=== PATIENT | female | born 1975 | race Caucasian/White ===

== ENCOUNTER 2020-09-05 18:25 | Emergency (ER) | payer MEDICAID, SELFPAY ==
[2020-09-05 19:26] VITALS: BP 134/88; PULSE 84; RESP 16; TEMP 36.6; O2SAT 98; BMI 25.0
--- NOTE | 2020-09-05 19:45 | ED.GENADULT ---
HPI - General Adult General Chief complaint: General Medical Stated complaint: Withdrawal Time Seen by Provider: 09/05/20 19:40 Related Data Previous Rx's Medication Instructions Recorded buprenorphine-naloxone [Suboxone] 1 film BUCCAL DAILY #3 ea 09/05/20 Allergies Allergy/AdvReac Type Severity Reaction Status Date / Time No Known Allergies Allergy Verified 09/05/20 19:32 [No Known Allergies*] Review of Systems Review of Systems: Constitutional : No Weight loss, No Fever, No Chills, No Night Sweats, No Fatigue, No Malaise ENT/Mouth : No Hearing loss, No Ear Pain, No Nasal Congestion, No Sinus Pain, No Hoarseness, No sore throat, No Rhinorrhea, No Swallowing Difficulty Eyes: No Eye Pain, No Swelling, No Redness, No Foreign Body, No Discharge, No Vision Changes Cardiovascular : No Chest Pain, No SOB, No Dyspnea on Exertion, No Orthopnea, No Edema, No Palpitations Respiratory : No Cough, No Sputum, No Wheezing, No Smoke Exposure, No Dyspnea Gastrointestinal : No Nausea, No Vomiting, No Diarrhea, No Constipation, No abdominal Pain, No Hematochezia, No Melena Genitourinary : no irregular bleeding, No Dysuria, No Urinary Frequency, No Hematuria, No Urinary Incontinence, No Urgency, No Flank Pain, No Urinary Flow Changes, No Hesitancy Musculoskeletal : No joint pain, No Myalgias, No Joint Swelling Skin : No Skin Lesions, No rash Neuro : No Weakness, No Numbness, No Paresthesias, No Loss of Consciousness, No Dizziness, No Headache Psych : Anxiety/Panic, No Depression, No SI/HI/AH/VH, No Social Issues, Heme/Lymph: No Bruising, No Bleeding,No Lymphadenopathy Endocrine : No Polyuria, No Polydipsia, No Temperature Intolerance Yes all other systems are reviewed and are negative PMFSH Social History Social History Advance Directives: No Advance Directives Information Provided: No Physical Exam Vital Signs: Vital Signs: Last Vital Signs Temp 97.8 F 09/05/20 19:26 Pulse 84 09/05/20 19:26 Resp 16 09/05/20 19:26 BP 134/88 09/05/20 19:26 Pulse Ox 98 09/05/20 19:26 Body Mass Index 25.0 Const: General: healthy appearing, no acute distress and well developed Nutritional Appearance: well nourished Orientation/consciousness: patient oriented x3 Neck: Neck: Yes normal visual inspection, Yes full ROM and Yes trachea midline Thyroid: Thyroid normal Resp: Auscultation: clear to auscultation bilaterally Cardio: Rate: regular rate Rhythm: regular rhythm GI: Inspection: Yes normal to inspection and No distended Palpation (GI): No hepatosplenomegaly present Auscultation: normal bowel sounds Skin: General skin exam: elasticity normal, turgor normal and dry skin Neuro: General: patient oriented x3 Course Course Course Narrative: 44-year-old female here today for complaints of withdrawing from Suboxone. Patient recently moved to hold you and unable to get to [facility] to get her Suboxone. last dose of Suboxone was 6 days ago. Patient reports that she has not used any drugs in that time. He she reports feeling anxious unable to sleep for more than 2 hours. patient was on 8 mg of Suboxone. Script provided by patient of her last refill. I will send her home with Suboxone for 3 days. She will follow-up with [facility] with Kamini Salugero. Patient is agreeable to plan of care denies SI/HI. Discharge Plan Discharge Clinical Impression: Withdrawal syndrome Qualifiers: Substance type: opioid Qualified Code(s): F11.23 - Opioid dependence with withdrawal Patient Disposition: Home, Self-Care Instructions: Opioid Withdrawal (ED) Additional Instructions: you were seen here today because you had symptoms of withdrawal from not using Suboxone for 6 days. You were given 1 dose of Suboxone in the emergency department and he will be sent home with doses for the next 3 days. Please follow[facility]up with [facility]: Kamini Salguero MACHINE OPERATOR REPLANTER at [phone] tomorrow. Please return to emergency department if he will have worsening symptoms or any additional concerning symptoms Prescriptions: New buprenorphine-naloxone [Suboxone] 8-2 mg film 1 film buccal DAILY Qty: 3 RF: 0 Referrals: Kamini Salguero, EQUIPMENT SUPERINTENDENT [Nurse Practitioner] - 2 days
[2020-09-05] MEDS: Buprenorphine/Naloxone 8/2 mg FILM 1 FILM SUBLINGUAL (20:15)
== END 2020-09-05 20:23 | disposition home or self-care (01) ==
PROVIDERS: Emergency Provider Emergency Medicine; PCP Internal Medicine
DX: F11.23 Opioid dependence with withdrawal (principal)
CPT/HCPCS: 99283

== ENCOUNTER 2020-09-07 01:05 | Emergency (ER) | payer MEDICAID, SELFPAY ==
[2020-09-07 01:08] VITALS: BP 151/97; PULSE 90; RESP 16; TEMP 36.5; O2SAT 98; BMI 25.0
--- NOTE | 2020-09-07 01:11 | ED_ITS ---
HPI - General Adult General Chief complaint: General Medical Stated complaint: ? Source: patient Mode of arrival: ambulatory Limitations: no limitations History of Present Illness HPI narrative: 44-year-old female presents to the emergency department for Suboxone maintenance. Was unable to obtain the prescription, reports cocaine and alcohol use earlier today. Patient does not report any other symptoms. She did try to call Kamini Salguero NP today to obtain an appointment. Onset (ago): unknown Radiation: non-radiation Severity: moderate Associated symptoms: denies other symptoms Treatments prior to arrival: none Related Data Previous Rx's Medication Instructions Recorded buprenorphine-naloxone [Suboxone] 1 film BUCCAL DAILY #3 ea 09/05/20 Allergies Allergy/AdvReac Type Severity Reaction Status Date / Time No Known Allergies Allergy Verified 09/05/20 19:32 [No Known Allergies*] Review of Systems Review of Systems: Constitutional: No Fever, No Chills ENT/Mouth: No sore throat, No Rhinorrhea Eyes: No Eye Pain, No Swelling, No Redness Cardiovascular: No Chest Pain, No SOB Respiratory: No Cough, No Sputum Gastrointestinal: No Nausea, No Vomiting, No Diarrhea, No abdominal Pain Genitourinary: No Dysuria, No Hematuria Musculoskeletal: No joint pain, No Myalgias, No Joint Swelling Skin: No Skin Lesions, No rash Neuro: No Weakness, No Numbness, No Loss of Consciousness, No Dizziness, No Headache Psych: Positive Suboxone, No Anxiety, No Depression, No SI/HI/AH/VH Heme/Lymph: No Bruising, No Bleeding,No Lymphadenopathy Endocrine: No Polyuria, No Polydipsia Yes all other systems are reviewed and are negative PMFSH Past Medical History Attestation statement: The following information was validated with the patient. Source: old records reviewed Medical History No known health problems Social History Social History Advance Directives: No Advance Directives Information Provided: No Patient : No Physical Exam Vital Signs: Vital Signs: Last Vital Signs Temp 97.7 F 09/07/20 01:08 Pulse 90 09/07/20 01:08 Resp 16 09/07/20 01:08 BP 151/97 H 09/07/20 01:08 Pulse Ox 98 09/07/20 01:08 Body Mass Index 25.0 Appearance: Alert. Oriented X3. No acute distress. Eyes: Pupils equal, round and reactive to light. ENT: Pharynx normal. Neck: Normal inspection. Neck supple. CVS: Normal heart rate and rhythm. Pulses normal. Respiratory: No respiratory distress. Breath sounds normal. Abdomen: Soft and nontender. Skin: Skin warm and dry. Normal skin color. Normal skin turgor. Extremities: No lower extremity edema. Neuro: No motor deficit. No sensory deficit. Course Course Course Narrative: 44-year-old female presents with request for Suboxone maintenance. Was seen here in the emergency department yesterday and was given a prescription, but the prescription was and able to be filled. She does report some cocaine and some alcohol use, states that she tried to get in to Psychiatry for substance abuse. She will follow up tomorrow for Suboxone Clinic. Will give 1 tab of Suboxone for maintenance. Drug screen is pending. Patient verbalizes understanding of and agrees plan of care discharge home. Medical Decision Making Differential Diagnosis Differential Diagnosis: Suboxone maintenance Medical Records Medical records reviewed: Yes I reviewed the patient's medical records. Lab Data Lab results reviewed: Yes I reviewed the patient's lab results. Discharge Plan Discharge Clinical Impression: Encounter for monitoring Suboxone maintenance therapy Patient Disposition: Home, Self-Care Instructions: Buprenorphine/Naloxone (Into the mouth) Additional Instructions: You were evaluated for Suboxone maintenance. Please follow up with Kamini Salguero SENIOR VALIDATION ENGINEER, and or walk in Suboxone clinic. Thank you for choosing this emergency department for evaluation. Please follow-up with primary care physician as needed. Return to the emergency department for any new, concerning, or worsening symptoms. Prescriptions: No Action buprenorphine-naloxone [Suboxone] 8-2 mg film 1 film buccal DAILY Qty: 3 RF: 0
[2020-09-07 01:59] LABS: Amphetamine Screen Urine Not Detected (Not Detect); Barbiturates, Urine Not Detected (Not Detect); Benzodiazepines Screen Urine Not Detected (Not Detect); Cannabinoid Screen Urine Not Detected (Not Detect); Cocaine Screen Urine POSITIVE (Not Detect); Opiate Screen Urine Not Detected (Not Detect); Phencyclidine Screen Urine Not Detected (Not Detect)
--- NOTE | 2020-09-07 02:02 | PC.NURSE ---
PT LEFT BECAUSE SHE DID NOT WANT TO WAIT FOR URINE RESULT TO RECEIVE HER SUBOXONE DOES. PT LEFT HAD LIST FOR FOLLOW UP FOR TOMORROW PT. PT WAS TOLD THAT PER PROTOCOL WE REQUIRED A TEST BEFORE MEDICATION CAN BE GIVEN.
== END 2020-09-07 02:13 | disposition left against medical advice (07) ==
PROVIDERS: Nurse Practitioner Family; Emergency Provider Emergency Medicine
DX: F14.10 Cocaine abuse, uncomplicated (principal); Z71.51 Drug abuse counseling and surveillance of drug abuser; Z79.899 Other long term (current) drug therapy
CPT/HCPCS: 80307; 99284

== ENCOUNTER → 2020-09-18 10:29 | Outpatient (BNVA) | payer MEDICAID, SELFPAY | PROVIDERS: PCP Internal Medicine | DX: F11.90 Opioid use, unspecified, uncomplicated (principal) | CPT/HCPCS: 80305; 99202 ==

== ENCOUNTER → 2020-09-26 15:03 | Outpatient (BNVA) | payer MEDICAID, SELFPAY | DX: Z51.81 Encounter for therapeutic drug level monitoring (principal) | CPT/HCPCS: 80305; 99211 ==

== ENCOUNTER → 2020-10-10 14:40 | Outpatient (BNVA) | payer MEDICAID, SELFPAY | PROVIDERS: Visit Provider Internal Medicine | DX: F11.99 Opioid use, unspecified with unspecified opioid-induced disorder (principal); Z51.81 Encounter for therapeutic drug level monitoring | CPT/HCPCS: 80305; 99212 ==

== ENCOUNTER → 2020-10-19 13:10 | Outpatient (BNVA) | payer MEDICAID, SELFPAY | PROVIDERS: Visit Provider Internal Medicine | DX: Z51.81 Encounter for therapeutic drug level monitoring (principal); F11.90 Opioid use, unspecified, uncomplicated | CPT/HCPCS: 80305; 99212 ==

== ENCOUNTER → 2020-10-26 14:37 | Outpatient (BNVA) | payer MEDICAID, SELFPAY | PROVIDERS: Visit Provider Internal Medicine | DX: F11.99 Opioid use, unspecified with unspecified opioid-induced disorder (principal); Z51.81 Encounter for therapeutic drug level monitoring | CPT/HCPCS: 80305; 99212 ==

== ENCOUNTER → 2020-11-05 16:17 | Outpatient (BNVA) | payer MEDICAID, SELFPAY | PROVIDERS: Visit Provider Internal Medicine | DX: F11.99 Opioid use, unspecified with unspecified opioid-induced disorder (principal); Z51.81 Encounter for therapeutic drug level monitoring | CPT/HCPCS: 80305; 99212 ==

== ENCOUNTER → 2020-11-12 14:37 | Outpatient (BNVA) | payer MEDICAID, SELFPAY | PROVIDERS: Visit Provider Internal Medicine | DX: Z51.81 Encounter for therapeutic drug level monitoring (principal); F11.90 Opioid use, unspecified, uncomplicated | CPT/HCPCS: 99212 ==

== ENCOUNTER → 2020-11-23 15:59 | Outpatient (BNVA) | payer MEDICAID, SELFPAY | PROVIDERS: PCP Internal Medicine; Visit Provider Internal Medicine | DX: F11.99 Opioid use, unspecified with unspecified opioid-induced disorder (principal); F14.10 Cocaine abuse, uncomplicated; F41.8 Other specified anxiety disorders; Z51.81 Encounter for therapeutic drug level monitoring | CPT/HCPCS: 80305; 99212 ==

== ENCOUNTER → 2021-01-01 14:00 | Outpatient (BNVA) | payer MEDICAID, SELFPAY | PROVIDERS: Visit Provider Internal Medicine | DX: F11.20 Opioid dependence, uncomplicated (principal); F14.10 Cocaine abuse, uncomplicated; Z51.81 Encounter for therapeutic drug level monitoring; Z79.899 Other long term (current) drug therapy | CPT/HCPCS: 80305; 99212 ==

== ENCOUNTER 2021-03-12 10:29 | Outpatient (REF) | payer MEDICAID, SELFPAY ==
[2021-03-12 17:51] LABS: Fentanyl, urine Not Detected (Not Detect)
== END 2021-03-12 10:30 | disposition home or self-care (01) ==
LOC: HO.LNP 10:29
PROVIDERS: Visit Provider Internal Medicine
DX: F11.20 Opioid dependence, uncomplicated (principal); Z51.81 Encounter for therapeutic drug level monitoring; Z79.899 Other long term (current) drug therapy
CPT/HCPCS: 80305; 80307; 99212

== ENCOUNTER → 2021-03-18 10:09 | Outpatient (BNVA) | payer MEDICAID, SELFPAY | PROVIDERS: Visit Provider Internal Medicine | DX: Z51.81 Encounter for therapeutic drug level monitoring (principal); F11.20 Opioid dependence, uncomplicated | CPT/HCPCS: 80305 ==

== ENCOUNTER → 2021-03-26 13:15 | Outpatient (BNVA) | payer MEDICAID, SELFPAY | PROVIDERS: Visit Provider Internal Medicine | DX: F11.20 Opioid dependence, uncomplicated (principal) | CPT/HCPCS: 80305; 99211 ==

== ENCOUNTER → 2021-04-02 11:30 | Outpatient (BNVA) | payer MEDICAID, SELFPAY | PROVIDERS: Visit Provider Internal Medicine | DX: Z51.81 Encounter for therapeutic drug level monitoring (principal); F11.20 Opioid dependence, uncomplicated | CPT/HCPCS: 80305; 99211 ==

== ENCOUNTER → 2021-04-09 13:20 | Outpatient (BNVA) | payer MEDICAID, SELFPAY | PROVIDERS: Visit Provider Internal Medicine | DX: F11.99 Opioid use, unspecified with unspecified opioid-induced disorder (principal); F14.10 Cocaine abuse, uncomplicated | CPT/HCPCS: 80305 ==

== ENCOUNTER → 2021-05-03 13:15 | Outpatient (BNVA) | payer MEDICAID, SELFPAY | PROVIDERS: Visit Provider Internal Medicine | DX: Z51.81 Encounter for therapeutic drug level monitoring (principal); F11.20 Opioid dependence, uncomplicated | CPT/HCPCS: 80305; 99211 ==

== ENCOUNTER 2021-05-24 13:52 | Outpatient (REF) | payer MEDICAID, SELFPAY ==
[2021-05-24 17:04] LABS: Fentanyl, urine Not Detected (Not Detect)
== END 2021-05-24 13:53 | disposition home or self-care (01) ==
LOC: HO.LNP 13:52
PROVIDERS: Visit Provider Internal Medicine
DX: F11.20 Opioid dependence, uncomplicated (principal); F14.10 Cocaine abuse, uncomplicated; Z51.81 Encounter for therapeutic drug level monitoring; Z79.899 Other long term (current) drug therapy
CPT/HCPCS: 80305; 80307; 99212

== ENCOUNTER → 2021-06-07 16:17 | Outpatient (BNVA) | payer MEDICAID, SELFPAY | PROVIDERS: Visit Provider Internal Medicine | DX: Z51.81 Encounter for therapeutic drug level monitoring (principal); F11.20 Opioid dependence, uncomplicated | CPT/HCPCS: 80305; 99212 ==

== ENCOUNTER → 2021-06-21 16:05 | Outpatient (BNVA) | payer MEDICAID, SELFPAY | PROVIDERS: PCP Internal Medicine; Visit Provider Internal Medicine | DX: Z51.81 Encounter for therapeutic drug level monitoring (principal); F11.20 Opioid dependence, uncomplicated | CPT/HCPCS: 80305 ==

== ENCOUNTER → 2021-07-05 15:04 | Outpatient (BNVA) | payer MEDICAID, SELFPAY | PROVIDERS: PCP Internal Medicine; Visit Provider Internal Medicine | DX: Z51.81 Encounter for therapeutic drug level monitoring (principal) ==

== ENCOUNTER → 2021-07-26 15:59 | Outpatient (BNVA) | payer MEDICAID, SELFPAY | PROVIDERS: Visit Provider Internal Medicine | DX: Z51.81 Encounter for therapeutic drug level monitoring (principal); F11.20 Opioid dependence, uncomplicated | CPT/HCPCS: 80305; 99212 ==

== ENCOUNTER → 2021-08-23 11:24 | Outpatient (BNVA) | payer MEDICAID, SELFPAY | PROVIDERS: Visit Provider Internal Medicine | DX: F11.20 Opioid dependence, uncomplicated (principal); F14.10 Cocaine abuse, uncomplicated; Z51.81 Encounter for therapeutic drug level monitoring | CPT/HCPCS: 99212 ==

== ENCOUNTER → 2021-09-30 15:45 | Outpatient (BNVA) | payer MEDICAID, SELFPAY | PROVIDERS: PCP Internal Medicine; Visit Provider Nurse Practitioner Psychiatric/Mental Health | DX: F11.20 Opioid dependence, uncomplicated (principal); F14.10 Cocaine abuse, uncomplicated; Z51.81 Encounter for therapeutic drug level monitoring | CPT/HCPCS: 80305; 99212 ==

== ENCOUNTER → 2021-10-15 15:52 | Outpatient (BNVA) | payer MEDICAID, SELFPAY | PROVIDERS: PCP Internal Medicine; Visit Provider Nurse Practitioner Psychiatric/Mental Health | DX: F11.99 Opioid use, unspecified with unspecified opioid-induced disorder (principal); F14.99 Cocaine use, unspecified with unspecified cocaine-induced disorder; Z51.81 Encounter for therapeutic drug level monitoring | CPT/HCPCS: 99212 ==

== ENCOUNTER → 2021-12-17 13:13 | Outpatient (BNVA) | payer MEDICAID, SELFPAY | PROVIDERS: PCP Internal Medicine; Visit Provider Nurse Practitioner Psychiatric/Mental Health | DX: Z51.81 Encounter for therapeutic drug level monitoring (principal); F11.99 Opioid use, unspecified with unspecified opioid-induced disorder | CPT/HCPCS: 80305; 99212 ==

== ENCOUNTER → 2022-01-06 15:00 | Outpatient (BNVA) | payer MEDICAID, SELFPAY | PROVIDERS: PCP Internal Medicine; Visit Provider Nurse Practitioner Psychiatric/Mental Health | DX: Z51.81 Encounter for therapeutic drug level monitoring (principal); F11.20 Opioid dependence, uncomplicated; F14.10 Cocaine abuse, uncomplicated | CPT/HCPCS: 80305; 99212 ==

== ENCOUNTER → 2022-01-21 15:45 | Outpatient (BNVA) | payer MEDICAID, SELFPAY | PROVIDERS: PCP Internal Medicine; Visit Provider Nurse Practitioner Psychiatric/Mental Health | DX: F14.10 Cocaine abuse, uncomplicated (principal); F11.20 Opioid dependence, uncomplicated; F17.210 Nicotine dependence, cigarettes, uncomplicated; Z79.899 Other long term (current) drug therapy; Z51.81 Encounter for therapeutic drug level monitoring | CPT/HCPCS: 99212 ==

== ENCOUNTER → 2022-02-04 15:23 | Outpatient (BNVA) | payer MEDICAID, SELFPAY | PROVIDERS: PCP Internal Medicine; Visit Provider Nurse Practitioner Psychiatric/Mental Health | DX: F11.20 Opioid dependence, uncomplicated (principal); F14.10 Cocaine abuse, uncomplicated | CPT/HCPCS: 80305; 99212 ==

== ENCOUNTER → 2022-02-18 15:57 | Outpatient (BNVA) | payer MEDICAID, SELFPAY | PROVIDERS: PCP Internal Medicine; Visit Provider Nurse Practitioner Psychiatric/Mental Health | DX: Z51.81 Encounter for therapeutic drug level monitoring (principal); F14.10 Cocaine abuse, uncomplicated; F11.20 Opioid dependence, uncomplicated | CPT/HCPCS: 99212 ==

== ENCOUNTER 2022-03-11 14:44 | Outpatient (REF) | payer MEDICAID, SELFPAY ==
[2022-03-11 15:23] LABS: MANUAL DIFF FLAG NO
[2022-03-11 15:32] LABS: Basophils Percent Auto 0.7 % (0-2); Eosinophils Absolute Auto 0.2 X10*3/uL (0.0-0.4); Hematocrit 41.5 % (37.0-47.0); Hemoglobin 14.2 g/dl (12.0-16.0); Imm Gran Abs Auto 0.01 X10*3/uL (0.00-0.03); Imm Gran Pct Auto 0.2 % (0.0-0.4); Lymphocytes Absolute Auto 2.3 X10*3/uL (1.2-4.9); Lymphocytes Percent Auto 39.3 % (20-40); Mean Corpuscular HGB Conc 34.2 g/dl (31.0-35.0); Mean Corpuscular Hemoglobin 31.3 pg (27.0-33.0); Mean Corpuscular Volume 91.4 fL (80.0-98.0); Mean Platelet Volume 9.4 fL (9.4-12.3); Monocytes Absolute Auto 0.4 X10*3/uL (0.1-1.2); Monocytes Percent Auto 6.4 % (2-11); Neutrophils Percent Auto 49.4 % (45-73); Platelet Count 236 X10*3/uL (160-400); Red Blood Count 4.54 X10*6/uL (4.20-5.50); Red Cell Distribution Width 12.4 % (11.0-16.0)
[2022-03-11 16:28] LABS: Alanine Aminotransferase 11 U/L (0-31); Albumin Level 4.2 g/dL (3.5-5.0); Alkaline Phosphatase 66 U/L (39-117); Anion Gap 12 (12-20); Aspartate Amino Transferase 16 U/L (5-31); Bilirubin Direct 0.2 mg/dL (0.0-0.5); Bilirubin Total 0.5 mg/dL (0.0-1.0); Carbon Dioxide 29 mmol/L (22-29); Chloride 103 mmol/L (96-108); Potassium 4.4 mmol/L (3.3-5.1); Sodium 140 mmol/L (135-145); Total Protein 6.7 g/dL (6.5-8.0)
== END 2022-03-11 14:45 | disposition home or self-care (01) ==
LOC: HO.LAB 14:44
PROVIDERS: PCP Internal Medicine; Visit Provider Nurse Practitioner Psychiatric/Mental Health
DX: F11.20 Opioid dependence, uncomplicated (principal); F14.10 Cocaine abuse, uncomplicated; Z51.81 Encounter for therapeutic drug level monitoring; Z79.899 Other long term (current) drug therapy
CPT/HCPCS: 36415; 80051; 80076; 80305; 85025; 99212

== ENCOUNTER → 2022-04-10 16:06 | Outpatient (BNVA) | payer MEDICAID, SELFPAY | PROVIDERS: PCP Internal Medicine; Visit Provider Nurse Practitioner Psychiatric/Mental Health | DX: F14.20 Cocaine dependence, uncomplicated (principal); F11.20 Opioid dependence, uncomplicated; F17.210 Nicotine dependence, cigarettes, uncomplicated; Z51.81 Encounter for therapeutic drug level monitoring; Z79.899 Other long term (current) drug therapy | CPT/HCPCS: 80305; 99212 ==

== ENCOUNTER → 2022-06-09 11:04 | Outpatient (BNVA) | payer MEDICAID, SELFPAY | PROVIDERS: PCP Internal Medicine; Visit Provider Nurse Practitioner Psychiatric/Mental Health | DX: Z51.81 Encounter for therapeutic drug level monitoring (principal); F11.20 Opioid dependence, uncomplicated; F14.10 Cocaine abuse, uncomplicated | CPT/HCPCS: 80305; 99212 ==

== ENCOUNTER → 2022-07-10 15:17 | Outpatient (BNVA) | payer MEDICAID, SELFPAY | PROVIDERS: PCP Internal Medicine; Visit Provider Nurse Practitioner Psychiatric/Mental Health | DX: F11.20 Opioid dependence, uncomplicated (principal); F14.10 Cocaine abuse, uncomplicated | CPT/HCPCS: 99212 ==

== ENCOUNTER → 2022-08-07 14:16 | Outpatient (BNVA) | payer MEDICAID, SELFPAY | PROVIDERS: PCP Internal Medicine; Visit Provider Nurse Practitioner Psychiatric/Mental Health | DX: F11.20 Opioid dependence, uncomplicated (principal); F14.10 Cocaine abuse, uncomplicated | CPT/HCPCS: 99212 ==

== ENCOUNTER 2022-10-02 14:31 | Outpatient (AMB) | payer MEDICAID, SELFPAY ==
--- NOTE | 2022-10-02 14:33 | A.OFFVIS_ITS ---
Intake Vital Signs 10/02/22 14:37 BP 118/76 Blood Pressure Location Lt radial Position Sitting Pulse 97 Pulse Source Pulse Oximeter Pulse Oximetry (%) 99 Oxygen Delivery Method Room Air Intake Visit Reasons: MAT Visit Intake Note: the patient presents for a mat visit Allergies No Known Allergies [No Known Allergies*] Allergy (Verified 10/02/22 14:33) Do you need a note to return to daycare/school/sports/work: No HPI MAT Visit HPI Details Patient presents for follow up in treatment for 2 weeks was not a positive experience Patient very guarded, providing minimal responses to questions. Discussed recovery supports, patient reports that she does not have any. Reports that she spends most of her time isolating at home. Reviewed recovery supports including recovery centers--how they work and whether located. Patient expressed some interest [facility] Medical History Cocaine use disorder No known health problems Opioid use disorder Social History Patient Tobacco Use Status: Current everyday Tobacco user Cigarettes Per Day: 2 Years Smoked: 20 Review of Systems Const Reports as per HPI and Reports no additional complaints Physical Exam Vital Signs: Last Vital Signs Pulse 97 10/02/22 14:37 BP 118/76 10/02/22 14:37 Pulse Ox 99 10/02/22 14:37 Oxygen Delivery Method Room Air 10/02/22 14:37 Const Other: conducted over telephone. General: alert Orientation/consciousness: patient oriented x3 Neuro General: patient oriented x3 Psych Other: Reports increased anxiety/stress, due to family and financial issues. Appearance: grossly normal Mental Status: mental status grossly normal Speech and movement: Clear speech present Affect: normal affect Attitude: cooperative Thought process: Normal thought process present Thought content: Normal thought content present Insight: Fair insight present (Psych) Judgement: Fair judgement present (Psych) Assessment & Plan Assessment & Plan (1) Opioid use disorder: Code(s): F11.99 - Opioid use, unspecified with unspecified opioid-induced disorder Plan: * Continue Suboxone at current dose * Follow-up 4 weeks (2) Cocaine use disorder: Code(s): F14.10 - Cocaine abuse, uncomplicated Plan: * Risk reduction discussion Medications: Refilled buprenorphine-naloxone 8-2 mg (Suboxone) 1 film sublingual BID 42 ea 0RF Coding Level of Care Code Est Pt Level 4 (46778) Diagnoses Opioid use disorder F11.99 Cocaine use disorder F14.10
[2022-10-02 14:37] VITALS: BP 118/76; PULSE 97; O2SAT 99
== END 2022-10-02 14:56 | disposition home or self-care (01) ==
LOC: HO.HCC 14:32
PROVIDERS: PCP Internal Medicine; Visit Provider Nurse Practitioner Psychiatric/Mental Health
DX: F11.99 Opioid use, unspecified with unspecified opioid-induced disorder (principal); F14.10 Cocaine abuse, uncomplicated
CPT/HCPCS: 99214

== ENCOUNTER → 2022-10-02 14:31 | Outpatient (BNVA) | payer MEDICAID, SELFPAY | PROVIDERS: PCP Internal Medicine; Visit Provider Nurse Practitioner Psychiatric/Mental Health | DX: F11.20 Opioid dependence, uncomplicated (principal); F14.10 Cocaine abuse, uncomplicated | CPT/HCPCS: 99214 ==

== ENCOUNTER 2023-02-06 10:23 | Outpatient (AMB) | payer OTHER, SELFPAY ==
--- NOTE | 2023-02-06 10:28 | MHC.AM.SUB ---
Intake Vital Signs 02/06/23 10:38 BP 128/74 Blood Pressure Location Lt radial Position Sitting Pulse 74 Pulse Source Pulse Oximeter Pulse Oximetry (%) 98 Oxygen Delivery Method Room Air Intake Visit Reasons: MAT Restart Intake Note: THE PATIENT PRESENTS FOR A MAT RESTART Online Merchandising Specialist Required: No Allergies No Known Allergies [No Known Allergies*] Allergy (Verified 02/06/23 10:39) Do you need a note to return to daycare/school/sports/work: No HPI MAT Restart HPI Details Patient presents to re-establish care Last visit in September --reports recurrence with opiates and used heroin ashlie the first time ([place]) Continues to smoke crack cocaine Has been evicted from her apt, lived briefly [address] with her two pets Currently living with her mother which she reports is a safe and supportive environment Physically patient appears much healthier, not as thin and undernourished as she previously appeared. Somewhat tearful during visit, reporting ongoing cocaine use is a stressor in her relationship with her adult sons. She states she plans on admission to [facility] after [place]. Discussed topomax trial again for cocaine use. Patient agreeable [facility] Medical History Cocaine use disorder No known health problems Opioid use disorder Social History Patient Tobacco Use Status: Current everyday Tobacco user Cigarettes Per Day: 2 Years Smoked: 20 Review of Systems Const Reports as per HPI and Reports no additional complaints Physical Exam Vital Signs: Last Vital Signs Pulse 74 02/06/23 10:38 BP 128/74 02/06/23 10:38 Pulse Ox 98 02/06/23 10:38 Oxygen Delivery Method Room Air 02/06/23 10:38 Const General: alert Orientation/consciousness: patient oriented x3 Neuro General: patient oriented x3 Psych Appearance: grossly normal and well kempt Mental Status: mental status grossly normal Speech and movement: Clear speech present Affect: normal affect Attitude: cooperative Thought process: Normal thought process present Thought content: Normal thought content present Insight: Fair insight present (Psych) Judgement: Fair judgement present (Psych) Assessment & Plan Assessment & Plan (1) Opioid use disorder: Code(s): F11.99 - Opioid use, unspecified with unspecified opioid-induced disorder Plan: restart suboxone 8mg BID (2) Cocaine use disorder: Code(s): F14.10 - Cocaine abuse, uncomplicated Plan topomax 50mg BID --previously tolerated 25mg BID risk reduction discussion follow up 2 weeks Medications: New valacyclovir 1,000 mg PO DAILY 5 tabs 1RF buprenorphine-naloxone 8-2 mg (Suboxone) 1 film sublingual DAILY 28 ea 0RF topiramate (Topamax) 50 mg PO BID 28 tabs 0RF Discontinued buprenorphine-naloxone 8-2 mg (Suboxone) Discontinued Reason: Duplicate 1 film sublingual BID 42 ea 0RF Coding Level of Care Code Est Pt Level 4 (03738) Diagnoses Opioid use disorder F11.99 Cocaine use disorder F14.10
[2023-02-06 10:38] VITALS: BP 128/74; PULSE 74; O2SAT 98
== END 2023-02-06 11:13 | disposition home or self-care (01) ==
PROVIDERS: PCP Internal Medicine; Visit Provider Nurse Practitioner Psychiatric/Mental Health
DX: F11.99 Opioid use, unspecified with unspecified opioid-induced disorder (principal); F14.10 Cocaine abuse, uncomplicated
CPT/HCPCS: 99214

== ENCOUNTER → 2023-02-06 10:23 | Outpatient (BNVA) | payer OTHER, SELFPAY | PROVIDERS: PCP Internal Medicine; Visit Provider Nurse Practitioner Psychiatric/Mental Health ==

== ENCOUNTER 2023-02-24 14:57 | Outpatient (AMB) | payer OTHER, SELFPAY ==
--- NOTE | 2023-02-24 14:58 | A.OFFVISCC_ITS ---
Intake Vital Signs 02/24/23 15:05 BP 114/72 Blood Pressure Location Lt radial Position Sitting Pulse 75 Pulse Source Pulse Oximeter Pulse Oximetry (%) 99 Oxygen Delivery Method Room Air Intake Visit Reasons: MAT Visit Intake Note: the patient presents for a at visit Ram Press Operator Required: No Allergies No Known Allergies [No Known Allergies*] Allergy (Verified 02/24/23 15:06) Do you need a note to return to daycare/school/sports/work: No HPI MAT Visit HPI Details Patient presenting for [facility] treatment follow up Has been taking Topomax Has not used cocaine in almost one month --cravings still there Future oriented, looking to apply for [place] benefits Still would like to go to treatment, feels it would be beneficial [facility] Medical History Cocaine use disorder No known health problems Opioid use disorder Social History Patient Tobacco Use Status: Current everyday Tobacco user Cigarettes Per Day: 2 Years Smoked: 20 Review of Systems Const Reports as per HPI and Reports no additional complaints Physical Exam Vital Signs: Last Vital Signs Pulse 75 02/24/23 15:05 BP 114/72 02/24/23 15:05 Pulse Ox 99 02/24/23 15:05 Oxygen Delivery Method Room Air 02/24/23 15:05 Const General: cooperative and healthy appearing Nutritional Appearance: thin Orientation/consciousness: patient oriented x3 Neuro General: patient oriented x3 Psych Appearance: well kempt Speech and movement: Clear speech present Affect: normal affect Attitude: cooperative Thought process: Normal thought process present Thought content: Normal thought content present Insight: Good insight present (Psych) Judgement: Good judgement present (Psych) Assessment & Plan Assessment & Plan (1) Opioid use disorder: Code(s): F11.99 - Opioid use, unspecified with unspecified opioid-induced disorder Plan: * continue subopxone at current dose * follow up 2 weeks (2) Cocaine use disorder: Code(s): F14.10 - Cocaine abuse, uncomplicated Plan: * increased topomax dose * follow up 2 weeks Medications: Changed From topiramate (Topamax) 50 mg PO BID 28 tabs 0RF To topiramate (Topamax) take one tab in AM and 2 tabs in the evening. total of 150mg daily 50 mg PO BID 90 tabs 0RF Refilled trazodone 50 mg PO BEDTIME PRN 30 tabs 0RF sleep hydroxyzine HCl 25 mg PO TID PRN 90 tabs 0RF anxiety Coding Level of Care Code Est Pt Level 4 (51922) Diagnoses Opioid use disorder F11.99 Cocaine use disorder F14.10
[2023-02-24 15:05] VITALS: BP 114/72; PULSE 75; O2SAT 99
== END 2023-02-24 16:01 | disposition home or self-care (01) ==
PROVIDERS: PCP Internal Medicine; Visit Provider Nurse Practitioner Psychiatric/Mental Health
DX: F11.99 Opioid use, unspecified with unspecified opioid-induced disorder (principal); F14.10 Cocaine abuse, uncomplicated
CPT/HCPCS: 99214

== ENCOUNTER → 2023-02-24 14:57 | Outpatient (BNVA) | payer OTHER, SELFPAY | PROVIDERS: PCP Internal Medicine; Visit Provider Nurse Practitioner Psychiatric/Mental Health ==

== ENCOUNTER 2023-04-02 15:41 | Outpatient (REF) | payer OTHER, SELFPAY ==
[2023-04-02 17:05] LABS: MANUAL DIFF FLAG NO
[2023-04-02 17:45] LABS: Basophils Absolute Auto 0.1 X10*3/uL (0.0-0.2); Basophils Percent Auto 0.7 % (0-2); Eosinophils Absolute Auto 0.3 X10*3/uL (0.0-0.4); Eosinophils Percent Auto 3.4 % (0-4); Hematocrit 36.7 % (37.0-47.0); Hemoglobin 12.8 g/dl (12.0-16.0); Imm Gran Abs Auto 0.03 X10*3/uL (0.00-0.03); Imm Gran Pct Auto 0.3 % (0.0-0.4); Lymphocytes Absolute Auto 3.2 X10*3/uL (1.2-4.9); Mean Corpuscular HGB Conc 34.9 g/dl (31.0-35.0); Mean Corpuscular Volume 88.9 fL (80.0-98.0); Mean Platelet Volume 8.6 fL (9.4-12.3); Monocytes Absolute Auto 0.6 X10*3/uL (0.1-1.2); Monocytes Percent Auto 6.3 % (2-11); Neutrophils Absolute Auto 4.8 x10*3/uL (2.0-8.3); Neutrophils Percent Auto 53.3 % (45-73); Platelet Count 336 X10*3/uL (160-400); Red Blood Count 4.13 X10*6/uL (4.20-5.50); Red Cell Distribution Width 11.9 % (11.0-16.0)
[2023-04-02 18:01] LABS: Alanine Aminotransferase 26 U/L (0-31); Albumin Level 4.4 g/dL (3.5-5.0); Alkaline Phosphatase 78 U/L (39-117); Anion Gap 11 (12-20); Aspartate Amino Transferase 19 U/L (5-31); Bilirubin Total 0.2 mg/dL (0.0-1.0); Blood Urea Nitrogen 21 mg/dL (9-16); Calcium 9.6 mg/dL (8.4-10.2); Carbon Dioxide 27 mmol/L (22-29); Chloride 105 mmol/L (96-108); Estimated Glomerular Filt Rate > 60; Glucose Random 82 mg/dL (60-115); Magnesium 2.1 mg/dL (1.6-2.6); Potassium 4.2 mmol/L (3.3-5.1); Sodium 139 mmol/L (135-145); Total Protein 7.9 g/dL (6.5-8.0)
[2023-04-02 18:33] LABS: Folate 12.2 ng/mL (> or = 4.0); Vitamin B12 462 pg/mL (200-900)
[2023-04-03 03:58] LABS: HBS Num1 296.94 mIU/mL (0-7.99); HBsAGNum1 0.36 S/CO (0.00-0.99); Hepatitis A Antibody IgM 0.16 Index (0-0.79); Hepatitis B Core Antibody Nonreactive (Nonreactive); Hepatitis B Surface Antigen Negative (Negative); ~HepC Num1 0.12 S/CO (0.00-0.79); ~Hepatitis A Antibody IgM Nonreactive (Nonreactive); ~Hepatitis B Surface Antibody REACTIVE (Nonreactive); ~Hepatitis C Antibody Nonreactive (Nonreactive)
[2023-04-05 20:17] LABS: VITAMIN D (1,25 OH) D3 18 pg/mL; Vit D (1,25-Dihydroxy) Total 18 pg/mL (18-72); Vitamin D (1,25 OH) D2 <8 pg/mL
[2023-04-07 15:23] LABS: Vitamin B1 19 nmol/L (8-30)
== END 2023-04-02 15:42 | disposition home or self-care (01) ==
LOC: HO.LAB 15:41
PROVIDERS: PCP Internal Medicine; Visit Provider Nurse Practitioner Family
DX: F11.99 Opioid use, unspecified with unspecified opioid-induced disorder (principal); F14.10 Cocaine abuse, uncomplicated; R10.13 Epigastric pain; Z51.81 Encounter for therapeutic drug level monitoring; Z79.899 Other long term (current) drug therapy
CPT/HCPCS: 36415; 80053; 80305; 82607; 82652; 82746; 83735; 84425; 85025; 86704; 86706; 86709; 86803; 87340

== ENCOUNTER 2023-04-02 15:41 | Outpatient (AMB) | payer OTHER, SELFPAY ==
--- NOTE | 2023-04-02 15:42 | MHC.AM.SUB ---
Intake Vital Signs 04/02/23 15:46 Height 5 ft 4 in Weight 131 lb BMI 22.5 BP 116/70 Blood Pressure Location Lt radial Position Sitting Pulse 74 Pulse Source Pulse Oximeter Pulse Oximetry (%) 97 Oxygen Delivery Method Room Air Intake Visit Reasons: mat visit Intake Note: the patient presents for a mat intake Mason Foreman/Superintendant Required: No Allergies No Known Allergies [No Known Allergies*] Allergy (Verified 04/02/23 15:57) Medication List - Last Reconciled 04/02/23 by Yee Hooker NP buprenorphine-naloxone 8-2 mg (Suboxone) 1 film sublingual DAILY hydroxyzine HCl 25 mg PO TID PRN topiramate (Topamax) 50 mg PO BID trazodone 50 mg PO BEDTIME PRN valacyclovir 1,000 mg PO DAILY Do you need a note to return to daycare/school/sports/work: No HPI mat visit HPI Details Patient presents for MAT visit She reports she lives with her mother She reports she was just d/c from [facility] She was set up with [facility] ([facility]) by [facility] and has her first appointment with [facility] this coming Thursday She reports having challenges moving her bowels while in rehab and required mag citrate after going 6 days without having a bowel movement She reports experiencing epigastric pain consistently for the past 2-3 weeks Pain is in upper abd, unrelieved by anything she can think of, worsens with movement. She describes the pain as throbbing , is concerned because she does not have a PCP and feels she needs to be evaluated. [facility] Medical History Cocaine use disorder No known health problems Opioid use disorder Social History Patient Tobacco Use Status: Current everyday Tobacco user Cigarettes Per Day: 2 Years Smoked: 20 Review of Systems Const Reports as per HPI, Denies fever(s) and Denies poor appetite Card Reports no additional complaints Resp Reports no additional complaints GI Reports abdominal pain, Denies melena, Denies hematochezia, Denies change in bowel habits, Denies tenesmus, Denies change in stool character, Denies coffee ground emesis, Reports constipation, Denies heartburn, Denies nausea and Denies vomiting Physical Exam Vital Signs: Last Vital Signs Pulse 74 04/02/23 15:46 BP 116/70 04/02/23 15:46 Pulse Ox 97 04/02/23 15:46 Oxygen Delivery Method Room Air 04/02/23 15:46 BMI result Body Mass Index 22.5 Const General: cooperative Nutritional Appearance: average body habitus Resp Effort & Inspection: normal respiratory effort GI Inspection: Yes normal to inspection Palpation (GI): Soft to palpation, Tenderness to palpation present (GI) and not rigid Auscultation: normal bowel sounds Results AMB 14 Panel Urine Drug Screen Urine Marijuana (THC) Negative Last Edit by Aneta Razo CMA on 04/02/23 15:58 Urine Cocaine Negative Last Edit by Aneta Razo CMA on 04/02/23 15:58 Urine Morphine Negative Last Edit by Aneta Razo CMA on 04/02/23 15:58 Urine Methamphetamine Negative Last Edit by Aneta Razo CMA on 04/02/23 15:58 Urine Amphetamine Negative Last Edit by Aneta Razo CMA on 04/02/23 15:58 Urine Benzodiazepine Negative Last Edit by Aneta Razo CMA on 04/02/23 15:58 Urine Barbiturates Negative Last Edit by Aneta Razo CMA on 04/02/23 15:58 Urine Methadone Negative Last Edit by Aneta Razo CMA on 04/02/23 15:58 Urine Buprenorphine Positive Last Edit by Aneta Razo CMA on 04/02/23 15:58 Urine Tricyclic Antidepressant Negative Last Edit by Aneta Razo CMA on 04/02/23 15:58 Urine MDMA Negative Last Edit by Aneta Razo CMA on 04/02/23 15:58 Urine Oxycodone Negative Last Edit by Aneta Razo CMA on 04/02/23 15:58 Urine Phencyclidine Negative Last Edit by Aneta Razo CMA on 04/02/23 15:58 Urine Propoxyphene Negative Last Edit by Aneta Razo CMA on 04/02/23 15:58 Results Reviewed Results Reviewed: Laboratory Last Values POC Urine Buprenorphine Positive 04/02/23 15:43 POC Urine Morphine Negative 04/02/23 15:43 POC Urine Oxycodone Negative 04/02/23 15:43 POC Urine Methadone Negative 04/02/23 15:43 POC Urine Propoxyphene Negative 04/02/23 15:43 POC Urine Barbiturates Negative 04/02/23 15:43 POC U Tricyclic Antidpr Negative 04/02/23 15:43 POC Urine PCP Negative 04/02/23 15:43 POC Ur Amphetamines Negative 04/02/23 15:43 POC Ur Methamphetamine Negative 04/02/23 15:43 POC Urine MDMA Negative 04/02/23 15:43 POC Ur Benzodiazepine Negative 04/02/23 15:43 POC Urine Cocaine Negative 04/02/23 15:43 POC Ur Marijuana (THC) Negative 04/02/23 15:43 Assessment & Plan Assessment & Plan (1) Opioid use disorder: Code(s): F11.99 - Opioid use, unspecified with unspecified opioid-induced disorder Plan: -Labwork ordered -Mass pat reviewed -Tolerating suboxone, refill sent to pharmacy -Follow up 2 weeks (2) Abdominal pain: Code(s): R10.9 - Unspecified abdominal pain Qualifiers: Abdominal location: epigastric Qualified Code(s): R10.13 - Epigastric pain Plan: -Due to continuous nature of abd pain, advised patient to present to Emergency Dept for more comprehensive evaluation/imaging, she is agreeable to this and is planning on going to [facility] this evening -Sent script for pepcid -Script for docusate sent to pharmacy (3) Cocaine use disorder: Code(s): F14.10 - Cocaine abuse, uncomplicated Plan: -Topamax refilled Orders: Orders Vitamin D 1,25 dihydroxy Today - Opioid use, unspecified with unspecified opioid-induced disorder Vitamin B1 Today - Opioid use, unspecified with unspecified opioid-induced disorder Comprehensive Met. Panel Today F1. - Opioid use, unspecified with unspecified opioid-induced disorder Magnesium Today . - Opioid use, unspecified with unspecified opioid-induced disorder AMB 14 Panel Urine Drug Screen Today Z51.81 - Encounter for therapeutic drug level monitoring Vitamin B12 and Folate Today - Opioid use, unspecified with unspecified opioid-induced disorder Complete Blood Count Auto Diff Today - Opioid use, unspecified with unspecified opioid-induced disorder Hepatitis A,B,C Profile Today F11.99 - Opioid use, unspecified with unspecified opioid-induced disorder Medications: New famotidine (Pepcid) 20 mg PO BID 60 tabs 1RF B-complex with vitamin C 1 tab PO DAILY 30 tabs 3RF docusate sodium 100 mg PO DAILY 30 caps 2RF ibuprofen 600 mg PO Q8H PRN 90 tabs 0RF pain Refilled buprenorphine-naloxone 8-2 mg (Suboxone) 1 film sublingual DAILY 14 ea 0RF topiramate (Topamax) take one tab in AM and 2 tabs in the evening. total of 150mg daily 50 mg PO BID 90 tabs 0RF Coding Level of Care Code Est Pt Level 4 (52079) Diagnoses Opioid use disorder F11.99 Epigastric pain R10.13 Abdominal location: epigastric Cocaine use disorder F14.10 Time Spent (min) 45
[2023-04-02 15:46] VITALS: BP 116/70; PULSE 74; O2SAT 97; BMI 22.5
== END 2023-04-02 16:26 | disposition home or self-care (01) ==
PROVIDERS: PCP Internal Medicine; Visit Provider Nurse Practitioner Family
DX: F11.99 Opioid use, unspecified with unspecified opioid-induced disorder (principal); R10.13 Epigastric pain; F14.10 Cocaine abuse, uncomplicated; Z51.81 Encounter for therapeutic drug level monitoring
CPT/HCPCS: 99214

== ENCOUNTER 2023-04-16 15:32 | Outpatient (AMB) | payer OTHER, SELFPAY ==
--- NOTE | 2023-04-16 15:42 | MHC.AM.SUB ---
Intake Intake Visit Reasons: mat visit Allergies No Known Allergies [No Known Allergies*] Allergy (Verified 04/02/23 15:57) HPI mat visit HPI Details Patient presents via telehealth for MAT visit Reports she had difficulties getting a ride for today She has a cholecystectomy scheduled for June 16 She is eating a gallbladder friendly diet and has had minimal abd pain No concerns for recovery, she would like to trial the Brixadi injections No recovery concerns at this time [facility] Medical History Cocaine use disorder No known health problems Opioid use disorder Social History Patient Tobacco Use Status: Current everyday Tobacco user Cigarettes Per Day: 2 Years Smoked: 20 Review of Systems Const Reports as per HPI Assessment & Plan Assessment & Plan (1) Opioid use disorder: Code(s): F11.99 - Opioid use, unspecified with unspecified opioid-induced disorder Plan: -Rx written for Brixadi -PT1 set up for pt by the [place] -Follow up 2 weeks (2) Cocaine use disorder: Code(s): F14.10 - Cocaine abuse, uncomplicated Plan: -She is maintaining abstinence Medications: New buprenorphine ER 96 mg (0.27 mL) subcut Q28D 0.27 mL 5RF Telehealth Telehealth Location of provider rendering services: practice address Location of patient: address on file Patient Identification confirmed using: Name, : Yes Telehealth method: voice only Patient verbally consented to treatment: Yes Patient verbally consented to billing insurance company: Yes Patient informed of any privacy concerns related to visit: Yes Coding Level of Care Code Est Pt Level 3 (53440) Diagnoses Opioid use disorder F11.99 Cocaine use disorder F14.10
== END 2023-04-16 15:46 | disposition home or self-care (01) ==
PROVIDERS: PCP Internal Medicine; Visit Provider Nurse Practitioner Family
DX: F11.99 Opioid use, unspecified with unspecified opioid-induced disorder (principal); F14.10 Cocaine abuse, uncomplicated
CPT/HCPCS: 99213

== ENCOUNTER → 2023-04-16 15:32 | Outpatient (BNVA) | payer OTHER, SELFPAY | PROVIDERS: PCP Internal Medicine; Visit Provider Nurse Practitioner Family | DX: Z51.81 Encounter for therapeutic drug level monitoring (principal); F11.99 Opioid use, unspecified with unspecified opioid-induced disorder ==

== ENCOUNTER 2023-04-30 15:18 | Outpatient (AMB) | payer OTHER, SELFPAY ==
--- NOTE | 2023-04-30 15:22 | A.OFFVISCC_ITS ---
Intake Vital Signs 04/30/23 15:36 BP 116/72 Blood Pressure Location Lt radial Position Sitting Pulse 96 Pulse Source Pulse Oximeter Pulse Oximetry (%) 98 Oxygen Delivery Method Room Air Intake Visit Reasons: mat visit Intake Note: the patient presents for a mat visit Vp Public Relations Required: No Allergies No Known Allergies [No Known Allergies*] Allergy (Verified 04/30/23 15:22) Do you need a note to return to daycare/school/sports/work: No HPI mat visit HPI Details Patient presents for MAT visit She is sober 90 days next week! Reports she has regular therapist appointments she is keeping Very happy with how she is doing in her recovery She is agreeable to trialing sublocade She reports low abd/pelvic discomfort starting 3-4 days ago, denies urgency but reports there has been an increase in urinary frequency PFSH Medical History Cocaine use disorder No known health problems Opioid use disorder Social History Patient Tobacco Use Status: Current everyday Tobacco user Cigarettes Per Day: 2 Years Smoked: 20 Review of Systems Const Reports as per HPI Reports as per HPI, Reports pelvic pain, Denies urinary hesitancy and Denies urinary urgency Physical Exam Vital Signs: Last Vital Signs Pulse 96 04/30/23 15:36 BP 116/72 04/30/23 15:36 Pulse Ox 98 04/30/23 15:36 Oxygen Delivery Method Room Air 04/30/23 15:36 Const General: cooperative and no acute distress Resp Effort & Inspection: normal respiratory effort Psych Appearance: grossly normal Mental Status: mental status grossly normal Speech and movement: Normal speech and movement present Attitude: cooperative Results AMB 14 Panel Urine Drug Screen Urine Marijuana (THC) Negative Last Edit by Aneta Razo CMA on 04/30/23 15:40 Urine Cocaine Negative Last Edit by Aneta Razo CMA on 04/30/23 15:40 Urine Morphine Negative Last Edit by Aneta Razo CMA on 04/30/23 15:40 Urine Methamphetamine Negative Last Edit by Aneta Razo CMA on 04/30/23 15:40 Urine Amphetamine Negative Last Edit by Aneta Razo CMA on 04/30/23 15:4 0 Urine Benzodiazepine Negative Last Edit by Aneta Razo CMA on 04/30/23 15:40 Urine Barbiturates Negative Last Edit by Aneta Razo CMA on 04/30/23 15: 40 Urine Methadone Negative Last Edit by Aneta Razo CMA on 04/30/23 15:40 Urine Buprenorphine Positive Last Edit by Aneta Razo CMA on 04/30/23 15 :40 Urine Tricyclic Antidepressant Negative Last Edit by Aneta Razo CMA on 04/30/23 15:40 Urine MDMA Negative Last Edit by Aneta Razo CMA on 04/30/23 15:40 Urine Oxycodone Negative Last Edit by Aneta Razo CMA on 04/30/23 15:40 Urine Phencyclidine Negative Last Edit by Aneta Razo CMA on 04/30/23 15 :40 Urine Propoxyphene Negative Last Edit by Aneta Razo CMA on 04/30/23 15: 40 Results Reviewed Results Reviewed: Laboratory Last Values POC Urine Buprenorphine Positive 04/30/23 15:22 POC Urine Morphine Negative 04/30/23 15:22 POC Urine Oxycodone Negative 04/30/23 15:22 POC Urine Methadone Negative 04/30/23 15:22 POC Urine Propoxyphene Negative 04/30/23 15:22 POC Urine Barbiturates Negative 04/30/23 15:22 POC U Tricyclic Antidpr Negative 04/30/23 15:22 POC Urine PCP Negative 04/30/23 15:22 POC Ur Amphetamines Negative 04/30/23 15:22 POC Ur Methamphetamine Negative 04/30/23 15:22 POC Urine MDMA Negative 04/30/23 15:22 POC Ur Benzodiazepine Negative 04/30/23 15:22 POC Urine Cocaine Negative 04/30/23 15:22 POC Ur Marijuana (THC) Negative 04/30/23 15:22 Assessment & Plan Assessment & Plan (1) Opioid use disorder: Code(s): F11.99 - Opioid use, unspecified with unspecified opioid-induced disorder Plan: -Mass pat reviewed -Sublocade injection ordered to trial -Continue suboxone same dose 8mg BID -Reviewed with her to call her PCP or present to urgent care to be evaluated for UTI -Follow up 4 weeks (2) Cocaine use disorder: Code(s): F14.10 - Cocaine abuse, uncomplicated Plan: -No cocaine use in nearly 90 days Orders: Orders AMB 14 Panel Urine Drug Screen 04/30/23 Z51.81 - Encounter for therapeutic drug level monitoring Medications: New buprenorphine ER (Sublocade) 300 mg (1.5 mL) subcut ONCE 1.5 mL 0RF Refilled buprenorphine-naloxone 8-2 mg (Suboxone) 1 film sublingual BID 60 ea 0RF Coding Level of Care Code Est Pt Level 3 (70553) Diagnoses Opioid use disorder F11.99 Cocaine use disorder F14.10
[2023-04-30 15:36] VITALS: BP 116/72; PULSE 96; O2SAT 98
== END 2023-04-30 15:53 | disposition home or self-care (01) ==
PROVIDERS: PCP Internal Medicine; Visit Provider Nurse Practitioner Family
DX: F11.99 Opioid use, unspecified with unspecified opioid-induced disorder (principal); F14.10 Cocaine abuse, uncomplicated
CPT/HCPCS: 99213

== ENCOUNTER → 2023-04-30 15:18 | Outpatient (BNVA) | payer OTHER, SELFPAY | PROVIDERS: PCP Internal Medicine; Visit Provider Nurse Practitioner Family | DX: F11.20 Opioid dependence, uncomplicated (principal); F14.10 Cocaine abuse, uncomplicated | CPT/HCPCS: 80305 ==

== ENCOUNTER 2023-05-13 14:30 | Outpatient (AMB) | payer OTHER, SELFPAY ==
[2023-05-13 14:43] VITALS: BP 110/60; PULSE 84; RESP 20; O2SAT 96
--- NOTE | 2023-05-13 14:43 | A.OFFVISCC_ITS ---
Intake Vital Signs 05/13/23 14:43 BP 110/60 Blood Pressure Location Lt brachial Position Sitting Respiration 20 Pulse 84 Pulse Source Pulse Oximeter Pulse Oximetry (%) 96 Oxygen Delivery Method Room Air Intake Visit Reasons: MAT Visit/ Sub Inj Allergies No Known Allergies [No Known Allergies*] Allergy (Verified 04/30/23 15:22) HPI MAT Visit/ Sub Inj HPI Details Patient presents for first sublocade injection Had her pupils dilated prior to visit for eye exam She reports her gall bladder has been causing her discomfort and surgery date has been moved up to next week Has no concers for recovery at this time [facility] Medical History Cocaine use disorder No known health problems Opioid use disorder Social History Patient Tobacco Use Status: Current everyday Tobacco user Cigarettes Per Day: 2 Years Smoked: 20 Review of Systems Const Reports as per HPI Physical Exam Vital Signs: Last Vital Signs Pulse 84 05/13/23 14:43 Resp 20 05/13/23 14:43 BP 110/60 05/13/23 14:43 Pulse Ox 96 05/13/23 14:43 Oxygen Delivery Method Room Air 05/13/23 14:43 Const General: cooperative and healthy appearing Resp Effort & Inspection: normal respiratory effort Psych Appearance: grossly normal Mental Status: mental status grossly normal Speech and movement: Normal speech and movement present Affect: normal affect Attitude: cooperative Office Meds Sublocade 300 mg/1.5 mL solution,extended release subcutaneous syringe Performing Provider: Yee Hooker NP Performing Location: [facility] Administered by: Leah Jackson RN on 05/13/23 14:45 Dose Route Admin Location Dispensed Lot Number Expiration Date [facility] Lanolin Plant Operator 300 mg subcut LLQ 1.5 mL [id number] 04/16/24 [address]-7 [employer]. Assessment & Plan Assessment & Plan (1) Opioid use disorder: Code(s): F11.99 - Opioid use, unspecified with unspecified opioid-induced disorder Plan: -Masspat reviewed -Med education provided for sublocade injection -Bridge script sent to pharmacy for breakthrough withdrawal symptoms -Follow up 4 weeks Orders: Orders AMB Buprenorphine Injection - Patient Supplied Today F11.99 - Opioid use, unspecified with unspecified opioid-induced disorder Medications: Refilled buprenorphine-naloxone 8-2 mg (Suboxone) 1 film sublingual BID 14 ea 0RF Coding Level of Care Code Est Pt Level 3 (01750) Diagnoses Opioid use disorder F11.99
== END 2023-05-13 15:16 | disposition home or self-care (01) ==
PROVIDERS: PCP Internal Medicine; Visit Provider Nurse Practitioner Family
DX: F11.99 Opioid use, unspecified with unspecified opioid-induced disorder (principal)
CPT/HCPCS: 99213

== ENCOUNTER → 2023-05-13 14:30 | Outpatient (BNVA) | payer OTHER, SELFPAY | PROVIDERS: PCP Internal Medicine; Visit Provider Nurse Practitioner Family | DX: F11.99 Opioid use, unspecified with unspecified opioid-induced disorder (principal) | CPT/HCPCS: 96372; Q9992 ==

== ENCOUNTER 2023-06-19 15:27 | Outpatient (AMB) | payer OTHER, SELFPAY ==
--- NOTE | 2023-06-19 16:13 | AM.OFFVISNUR ---
Intake Intake Visit Reasons: Sub Inj Allergies No Known Allergies [No Known Allergies*] Allergy (Verified 04/30/23 15:22) Nursing Note Pt to office for injection , alert and oriented x4, in good spirits, very happy and excited to tell me she is [facility] states it saved my life! Office Meds buprenorphine 96 mg/0.27 mL solution,exten.rel.subcutaneous syringe Performing Provider: Kamini Salguero CNP Performing Location: [facility] Administered by: Leah Jackson RN on 06/19/23 16:15 Dose Route Admin Location Dispensed Lot Number Expiration Date [facility] Stand In [address] 0.27 mL [id number] 12/16/24 38318-973-40 [employer]. Coding Assessment & Plan Assessment & Plan Orders: Orders AMB Buprenorphine Injection - Patient Supplied Today F11.99 - Opioid use, unspecified with unspecified opioid-induced disorder
== END 2023-06-19 15:42 | disposition home or self-care (01) ==
PROVIDERS: PCP Internal Medicine
DX: F11.99 Opioid use, unspecified with unspecified opioid-induced disorder (principal)

== ENCOUNTER → 2023-06-19 15:27 | Outpatient (BNVA) | payer OTHER, SELFPAY | PROVIDERS: PCP Internal Medicine | DX: F11.99 Opioid use, unspecified with unspecified opioid-induced disorder (principal) | CPT/HCPCS: 96372; C9154 ==

== ENCOUNTER 2023-07-22 15:12 | Outpatient (AMB) | payer OTHER, SELFPAY ==
[2023-07-22 15:14] VITALS: BP 138/86; PULSE 75; O2SAT 98
--- NOTE | 2023-07-22 15:14 | AM.OFFVISNUR ---
Intake Vital Signs 07/22/23 15:14 BP 138/86 Blood Pressure Location Rt brachial Position Sitting Pulse 75 Pulse Source Pulse Oximeter Pulse Oximetry (%) 98 Oxygen Delivery Method Room Air Intake Visit Reasons: Brix Inj Allergies No Known Allergies [No Known Allergies*] Allergy (Verified 04/30/23 15:22) Nursing Note Patient to clinic for injection today, A+O x4, speaking in clear/full sentences. Denies any complications from previous injection, states recovery is going well, she is going to [facility], states its going great , she acknowledged I dont trust myself yet without an intensive program . Verbally agrees to call [facility] with any concerns or questions. Office Meds Sublocade 300 mg/1.5 mL solution,extended release subcutaneous syringe Performing Provider: Yee Hooker NP Performing Location: [facility] Documented (not given) by: Leah Jackson RN on 07/22/23 15:37 Dose Route Admin Location Dispensed Lot Number Expiration Date [facility] [place] Inside Polisher 300 mg subcut mL buprenorphine 96 mg/0.27 mL solution,exten.rel.subcutaneous syringe Performing Provider: Yee Hooker NP Performing Location: [facility] Administered by: Leah Jackson RN on 07/22/23 15:37 Dose Route Admin Location Dispensed Lot Number Expiration Date [place] Inside Polisher 96 mg subcut KRISTOFER 0.27 mL [id number] 12/16/24 66961-112-61 [employer]. Comments: No noted or stated complications with injection or site, pt verbally understands to call [facility] with any questions or concerns. Coding Assessment & Plan Assessment & Plan Orders: Orders AMB Buprenorphine Injection - Patient Supplied Today F11.90 - Opioid use, unspecified, uncomplicated Medications: New Sublocade ER (buprenorphine) 300 mg (1.5 mL) subcut ONCE 1.5 mL 0RF NS F11.90 - Opioid use, unspecified, uncomplicated buprenorphine ER 96 mg (0.27 mL) subcut ONCE 0.27 mL 0RF F11.90 - Opioid use, unspecified, uncomplicated
== END 2023-07-22 15:24 | disposition home or self-care (01) ==
PROVIDERS: PCP Internal Medicine
DX: F11.90 Opioid use, unspecified, uncomplicated (principal)

== ENCOUNTER → 2023-07-22 15:12 | Outpatient (BNVA) | payer OTHER, SELFPAY | PROVIDERS: PCP Internal Medicine | DX: F11.20 Opioid dependence, uncomplicated (principal) | CPT/HCPCS: 96372; C9154 ==

== ENCOUNTER 2023-08-18 12:58 | Outpatient (AMB) | payer MEDICAID, SELFPAY ==
--- NOTE | 2023-08-18 13:55 | AM.OFFVISNUR ---
Intake Visit Reasons: Brix Inj Allergies No Known Allergies [No Known Allergies*] Allergy (Verified 04/30/23 15:22) Nursing Note Patient here today in clinic for injection. Pt is alert and oriented x4, speaking in clear/full sentences. Brixadi given in the COURT with no noted or stated reaction/complications. Patient will follow up with nurse and provider visit in 4 weeks. Patient states she is finishing up her PHP program in september, is excited but very anxious. Office Meds buprenorphine 96 mg/0.27 mL solution,exten.rel.subcutaneous syringe Performing Provider: Kamini Salguero CNP Performing Location: [facility] Administered by: Leah Jackson RN on 08/18/23 14:47 Dose Route Admin Location Dispensed Lot Number Expiration Date [facility] Animal Control Specialist [address] 0.27 mL [id number] 12/16/24 17033-334-67 [place] [facility]. Assessment & Plan Assessment & Plan Orders: Orders AMB Buprenorphine Injection - Patient Supplied 08/18/23 F11.99 - Opioid use, unspecified with unspecified opioid-induced disorder
== END 2023-08-18 13:46 | disposition home or self-care (01) ==
PROVIDERS: PCP Internal Medicine
DX: F11.99 Opioid use, unspecified with unspecified opioid-induced disorder (principal)

== ENCOUNTER → 2023-08-18 12:58 | Outpatient (BNVA) | payer MEDICAID, SELFPAY | PROVIDERS: PCP Internal Medicine | DX: F11.20 Opioid dependence, uncomplicated (principal); Z79.899 Other long term (current) drug therapy | CPT/HCPCS: 96372; C9154 ==

== ENCOUNTER 2023-09-21 15:04 | Outpatient (AMB) | payer MEDICAID, SELFPAY ==
--- NOTE | 2023-09-21 16:29 | A.OFFVISCC_ITS ---
Intake Visit Reasons: MAT Visit/Brix Inj Allergies No Known Allergies [No Known Allergies*] Allergy (Verified 04/30/23 15:22) HPI HPI MAT Visit/Brix Inj: Details: PAtient presents for follow up and Brixadi injection tolerating injection --reporting that last week of injection she has to take films to address mild withdrawal sx working on transitioning out of IOP and strengthen supports in the community [facility] Medical History Cocaine use disorder No known health problems Opioid use disorder Social History Patient Tobacco Use Status: Current everyday Tobacco user Cigarettes Per Day: 2 Years Smoked: 20 Review of Systems Const Reports as per HPI and Reports no additional complaints Physical Exam Const General: cooperative and healthy appearing Psych Appearance: grossly normal Mental Status: mental status grossly normal Speech and movement: Normal speech and movement present Affect: normal affect Attitude: cooperative Office Meds buprenorphine 96 mg/0.27 mL solution,exten.rel.subcutaneous syringe Performing Provider: Kamini Salguero CNP Performing Location: [facility] Administered by: Leah Jackson RN on 09/21/23 16:30 Dose Route Admin Location Dispensed Lot Number Expiration Date [facility] Retail Gift Card Merchandising 96 mg subcut K[employer]ER 0.27 mL [id number] 12/16/24 96564-740-73 [employer]. Assessment & Plan Assessment & Plan (1) Opioid use disorder: Code(s): F11.99 - Opioid use, unspecified with unspecified opioid-induced disorder Category: Medical Plan: * tolerated injeciton * refilled suboxone * discuss increased dose of injeciton next visit (2) Cocaine use disorder: Code(s): F14.10 - Cocaine abuse, uncomplicated Category: Medical Plan: * refilled topomax Orders: Orders AMB Buprenorphine Injection - Patient Supplied 09/21/23 F11.90 - Opioid use, unspecified, uncomplicated Medications: Refilled buprenorphine-naloxone 8-2 mg (Suboxone) 1 film sublingual BID 28 ea 0RF topiramate (Topamax) take one tab in AM and 2 tabs in the evening. total of 150mg daily 50 mg PO BID 90 tabs 3RF Discontinued buprenorphine ER (Sublocade) Discontinued Reason: Patient no longer taking 300 mg (1.5 mL) subcut ONCE 1. 5 mL 0RF Nursing Note Patient Presents for Brixadi Injection. Current Dose is 96mg. Given in the KRI[employer]OFER with no noted or stated complications. Denies any issues with previous injection. Denies symptoms, and denies any break through cravings. Had a check in with provider today, will follow up with RN in 4 weeks for injection. Will need to see provider for check in, in 3 months or as needed prior .
== END 2023-09-21 15:37 | disposition home or self-care (01) ==
PROVIDERS: PCP Internal Medicine; Visit Provider Nurse Practitioner Psychiatric/Mental Health
DX: F11.90 Opioid use, unspecified, uncomplicated (principal)
CPT/HCPCS: 99213

== ENCOUNTER → 2023-09-21 15:04 | Outpatient (BNVA) | payer OTHER, SELFPAY | PROVIDERS: PCP Internal Medicine | DX: F11.20 Opioid dependence, uncomplicated (principal); F14.10 Cocaine abuse, uncomplicated; Z51.81 Encounter for therapeutic drug level monitoring; Z79.899 Other long term (current) drug therapy | CPT/HCPCS: 96372; 99212; J0578 ==

== ENCOUNTER → 2023-10-20 15:17 | Outpatient (BNVA) | payer MEDICAID, SELFPAY | PROVIDERS: PCP Internal Medicine ==

== ENCOUNTER 2023-11-18 14:57 | Outpatient (AMB) | payer OTHER, SELFPAY ==
--- NOTE | 2023-11-20 08:51 | AM.OFFVISNUR ---
Intake Visit Reasons: Brix Injection Allergies No Known Allergies [No Known Allergies*] Allergy (Verified 04/30/23 15:22) Nursing Note Patient Presents for Brixadi Injection. Current Dose 96mg . Given in the COURT with no noted or stated complication. Denies any issues with previous injection. Denies symptoms, and denies any break through cravings. Last appt with provider was 2 months ago, will follow up with RN in 4 weeks for injection. Will need to see provider for check in December. Office Meds buprenorphine 96 mg/0.27 mL solution,exten.rel.subcutaneous syringe Performing Provider: Kamini Salguero CNP Performing Location: [facility] Administered by: Leah Jackson RN on 11/18/23 08:56 Dose Route Admin Location Dispensed Lot Number Expiration Date [facility] Maintenance Truck Driver [address] 0.27 mL [id number] 12/16/24 82248-229-94 [employer]. Assessment & Plan Assessment & Plan Orders: Orders AMB Buprenorphine Injection - Patient Supplied 11/18/23 F11.90 - Opioid use, unspecified, uncomplicated
== END 2023-11-18 16:19 | disposition home or self-care (01) ==
PROVIDERS: PCP Internal Medicine
DX: F11.90 Opioid use, unspecified, uncomplicated (principal)

== ENCOUNTER → 2023-11-18 14:57 | Outpatient (BNVA) | payer MEDICAID, SELFPAY | PROVIDERS: PCP Internal Medicine | DX: F11.20 Opioid dependence, uncomplicated (principal) | CPT/HCPCS: 96372; J0578 ==

== ENCOUNTER 2023-12-18 14:57 | Outpatient (AMB) | payer MEDICAID, SELFPAY ==
--- NOTE | 2023-12-18 15:38 | A.OFFVISCC_ITS ---
Intake Visit Reasons: MAT/ Brix Injection Allergies No Known Allergies [No Known Allergies*] Allergy (Verified 04/30/23 15:22) Medication List - Last Reconciled 12/18/23 by Kamini Salguero CNP B-complex with vitamin C 1 tab PO DAILY buprenorphine ER 96 mg (0.27 mL) subcut Q28D buprenorphine-naloxone 8-2 mg (Suboxone) 1 film sublingual DAILY PRN bupropion HCl XL (Wellbutrin XL) 300 mg PO QAM bupropion HCl XL (Wellbutrin XL) 150 mg PO QAM buspirone 10 mg PO BID docusate sodium 100 mg PO DAILY topiramate (Topamax) 50 mg PO BID HPI HPI MAT/ Brix Injection: Details: Patient seen in follow up for YESSICA treatment and Brixadi injection Currently prescribed Birxadi 96mg Q monthly Patient reporting that 7-9 days before next injection is due, she begins to feel mild withdrawal sx (yawning, teary eyes, and irritability) Denies any other issues related to medication Discussed recovery supports--attending AA, has a 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 Has been applying to [employer]. Reviewed Medicine in Practice and resources available there Medication list reviewed and updated [facility] Medical History Cocaine use disorder No known health problems Opioid use disorder Social History Patient Tobacco Use Status: Current everyday Tobacco user Cigarettes Per Day: 2 Years Smoked: 20 Review of Systems Const Reports as per HPI Physical Exam Const General: cooperative and healthy appearing Psych Appearance: grossly normal Mental Status: mental status grossly normal Speech and movement: Normal speech and movement present Affect: normal affect Attitude: cooperative Office Meds buprenorphine 96 mg/0.27 mL solution,exten.rel.subcutaneous syringe Performing Provider: Kamini Salguero CNP Performing Location: [facility] Administered by: Leah Jackson RN on 12/18/23 16:01 Dose Route Admin Location Dispensed Lot Number Expiration Date [facility] Welfare Administrator 96 mg subcut KRISTOFER 0.27 mL [id number] 12/16/24 66232-124-60 [employer]. Assessment & Plan Assessment & Plan (1) Opioid use disorder: Code(s): F11.99 - Opioid use, unspecified with unspecified opioid-induced disorder Category: Medical Plan: * tolerated injeciton * refilled suboxone * discuss increased dose of injeciton next visit --increased dose oordered (2) Cocaine use disorder: Code(s): F14.10 - Cocaine abuse, uncomplicated Category: Medical Plan: * refilled topomax Orders: Orders AMB Buprenorphine Injection - Patient Supplied 12/18/23 F11.90 - Opioid use, unspecified, uncomplicated Medications: Changed From buprenorphine-naloxone 8-2 mg (Suboxone) 1 film sublingual BID 28 ea 0RF To buprenorphine-naloxone 8-2 mg (Suboxone) 1 film sublingual DAILY PRN 10 ea 0RF withdrawal symptoms Discontinued trazodone Discontinued Reason: Patient no longer taking 50 mg PO BEDTIME PRN 30 tabs 0RF sleep buprenorphine ER Discontinued Reason: Doctor's Order 96 mg (0.27 mL) subcut Q28D 0.27 mL 5RF
== END 2023-12-18 15:43 | disposition home or self-care (01) ==
LOC: HO.HCC 14:57
PROVIDERS: PCP Internal Medicine
DX: F11.90 Opioid use, unspecified, uncomplicated (principal)
CPT/HCPCS: 99214

== ENCOUNTER → 2023-12-18 14:57 | Outpatient (BNVA) | payer OTHER, SELFPAY | PROVIDERS: PCP Internal Medicine | DX: F14.20 Cocaine dependence, uncomplicated (principal); F11.20 Opioid dependence, uncomplicated; Z79.899 Other long term (current) drug therapy | CPT/HCPCS: 96372; 99212; J0578 ==

== ENCOUNTER 2024-01-13 15:17 | Outpatient (AMB) | payer MEDICAID, SELFPAY ==
--- NOTE | 2024-01-13 15:41 | AM.OFFVISNUR ---
Intake Visit Reasons: Brix Injection Allergies No Known Allergies [No Known Allergies*] Allergy (Verified 04/30/23 15:22) Nursing Note Patient Presents for Brixadi Injection. Current Dose increased this month to 128mg . Given in the RU Arm with no noted or stated complication. Denies any issues with previous injection. Denies symptoms, and denies any break through cravings. Last appt with provider was last month , will follow up with RN in 4 weeks for injection. Will need to see provider for check in March . Office Meds buprenorphine 128 mg/0.36 mL solution,ext.rel.subcutaneous syringe Performing Provider: Kamini Salguero CNP Performing Location: [facility] Administered by: Leah Jackson RN on 01/13/24 15:47 Dose Route Admin Location Dispensed Lot Number Expiration Date [facility] Dresser Tender [address] 0.36 mL [id number] 11/15/25 45222-885-07 [employer]. Assessment & Plan Assessment & Plan Orders: Orders AMB Buprenorphine Injection - Patient Supplied 01/13/24 F11.90 - Opioid use, unspecified, uncomplicated
== END 2024-01-13 16:09 | disposition home or self-care (01) ==
PROVIDERS: PCP Internal Medicine
DX: F11.90 Opioid use, unspecified, uncomplicated (principal)

== ENCOUNTER → 2024-01-13 15:17 | Outpatient (BNVA) | payer MEDICAID, SELFPAY | PROVIDERS: PCP Internal Medicine | DX: F11.20 Opioid dependence, uncomplicated (principal); Z79.899 Other long term (current) drug therapy | CPT/HCPCS: 96372; J0578 ==

== ENCOUNTER 2024-02-11 15:39 | Outpatient (AMB) | payer MEDICAID, SELFPAY ==
--- NOTE | 2024-02-11 16:01 | AM.OFFVISNUR ---
Intake Visit Reasons: Brix Injection Allergies No Known Allergies [No Known Allergies*] Allergy (Verified 04/30/23 15:22) Nursing Note Patient Presents for Brixadi Injection. Given in the COURT with no noted or stated complications. Denies any issues with previous injection. Denies symptoms, and denies any break through cravings. Last appt with provider was last month, will follow up with RN in 4 weeks for injection. Patient stated that she feels as though her memory is off the past few months, states having a hard time remembering things, used the example that she couldn't remember our office name. States it comes and gos, i advised her to reach out to her PCP and her therapist, which she verbally agrees to do. Pt is alert and oriented x4. Office Meds buprenorphine 128 mg/0.36 mL solution,ext.rel.subcutaneous syringe Performing Provider: Kamini Salguero CNP Performing Location: [facility] Administered by: Leah Jackson RN on 02/12/24 13:37 Dose Route Admin Location Dispensed Lot Number Expiration Date [facility] Corporation Lawyer 128 mg subcut KRISTOFER 0.36 mL [id number] 11/15/25 45662-489-13 [employer]. Assessment & Plan Assessment & Plan Orders: Orders AMB Buprenorphine Injection - Patient Supplied 02/11/24 F11.90 - Opioid use, unspecified, uncomplicated
== END 2024-02-11 16:03 | disposition home or self-care (01) ==
PROVIDERS: PCP Internal Medicine
DX: F11.90 Opioid use, unspecified, uncomplicated (principal)

== ENCOUNTER → 2024-02-11 15:39 | Outpatient (BNVA) | payer MEDICAID, SELFPAY | PROVIDERS: PCP Internal Medicine | DX: F11.90 Opioid use, unspecified, uncomplicated (principal); Z51.81 Encounter for therapeutic drug level monitoring | CPT/HCPCS: 96372; J0578 ==

== ENCOUNTER 2024-03-14 13:24 | Outpatient (AMB) | payer MEDICAID, SELFPAY ==
--- NOTE | 2024-03-14 13:45 | AM.OFFVISNUR ---
Vital Signs 03/14/24 14:04 BP 120/60 Blood Pressure Location Lt brachial Position Sitting Respiration 20 Pulse 88 Pulse Oximetry (%) 98 Intake Visit Reasons: Brix Injection Allergies No Known Allergies [No Known Allergies*] Allergy (Verified 04/30/23 15:22) Nursing Note Patient Presents for Brixadi Injection. Current Dose 128mg . Given in the KRISTOFER with no noted or stated complication. Denies any issues with previous injection. Denies symptoms, and denies any break through cravings. Will follow up with RN in 4 weeks for injection. Office Meds buprenorphine 128 mg/0.36 mL solution,ext.rel.subcutaneous syringe Performing Provider: Kamini Salguero CNP Performing Location: [facility] Administered by: Leah Jackson RN on 03/14/24 14:01 Dose Route Admin Location Dispensed Lot Number Expiration Date [facility] Party Plan Sales Agent 128 mg subcut KRISTOFER 0.36 mL [id number] 11/15/25 79653-370-15 [employer]. Assessment & Plan Assessment & Plan Orders: Orders AMB Buprenorphine Injection - Patient Supplied Today F11.90 - Opioid use, unspecified, uncomplicated Coding
[2024-03-14 14:04] VITALS: BP 120/60; PULSE 88; RESP 20; O2SAT 98
--- OUTSIDE RECORDS SUMMARY | 2024-03-14 18:07 | XMS_ITS ---
Author Organization [facility] Address [address] [place] [address] Care Team Providers Care Ui Lead Developer Name Role Phone SHAYNA SOTELO N.P. Primary Care Provider MENDOZA Jarrett [phone] REASON FOR VISIT [facility] Encounters Encounter Location Date Provider Diagnosis [facility] [address] [place] [address] 12/18/2023 MENDOZA RALPH Plan Of Treatment Next Appt Details Provider Name:MENDOZA Richter, 08/04/2024 10:30:00 AM, [address], [address], [place], [address], Progress Notes * KIMGURPREETDOB: 7 (48 yo F)Acc No.[id number]:12/18/2023 Patient:?GURPREET KIM :1975???Age:48 Y???Sex:Female Address:[facility] [address], [place], [address] * * Date:?
--- OUTSIDE RECORDS SUMMARY | 2024-03-14 18:07 | XMS_ITS | Patient Health Record ---
Author Organization [facility] Address [address], [place] [id number] Care Team Providers Care Hyperion Essbase Developer Name Role Phone No, PCP Primary Care Provider Murphy Hewitt Unavailable [phone] Kandice Sam Unavailable [phone] Reason For Referral No Information Encounters Encounter Location Date Provider Diagnosis [facility] [address] [place] [phone] 06/03/2023 Murphy Guardado [facility] [address] [place] [phone] 08/13/2023 Kandice Sam [facility] [address] [place] [phone] 10/05/2023 Kandice Sam [facility] [address] [place] [phone] 11/10/2023 Kandice Sam Plan Of Treatment No Information Insurance Providers Payer Name Payer Address Payer Phone Subscriber Number Group Number Insured Name Patient Relationship to Insured Coverage Start Date Coverage End Date [place] [address] [place] [address] [id number] Jerilyn Norton Self - patient is the insured 4 [facility] [address] [place] [address] [id number] Jerilyn Norton Self - patient is the insured 4
--- OUTSIDE RECORDS SUMMARY | 2024-03-14 18:07 | XMS_ITS | Clinical Summary ---
Author Organization [employer] [facility] [employer] Address [address] [employer] [place] [address] Care Team Providers Care Director Federal Name Role Phone Brian Vidal Primary Care Provider Allergies No known active allergies Medications amoxicillin (AMOXIL) 500 MG tablet TAKE 1 TABLET BY MOUTH EVERY 6 HOURS UNTIL GONE 3 Active Sublocade 300 mg/1.5 mL slsy 4 Active Suboxone 8-2 mg film 4 Active docusate sodium (COLACE) 100 MG capsule TAKE 1 CAPSULE BY MOUTH EVERY DAY 4 Active famotidine (PEPCID) 20 MG tablet TAKE 1 TABLET BY MOUTH TWICE DAILY 4 Active FLUoxetine (PROzac) 20 MG capsule 3-tabs (30mg) in the morning Orally Once a day Active B complex-vitamin C-folic acid 400 mcg tab TAKE 1 TABLET BY MOUTH EVERY DAY 4 Active hydroCHLOROthia zide (HYDRODIURIL) 50 MG tablet as directed Orally daily Active hydrOXYzine (ATARAX) 25 MG tablet TAKE 1 TABLET BY MOUTH THREE TIMES DAILY NEEDED FOR ANXIETY 4 Active ibuprofen (MOTRIN) 600 MG tablet TAKE 1 TABLET BY MOUTH EVERY 8 HOURS NEEDED FOR PAIN 4 Active levonorgestreL (MIRENA) 21 mcg/24 hours (8 yrs) 52 mg IUD as directed Intrauterine Active lisinopriL (PRINIVIL) 5 MG tablet Take 1 tablet (5 mg total) by mouth Active omeprazole (PriLOSEC) 20 MG capsule TAKE 1 CAPSULE BY MOUTH DAILY 4 Active Carafate 100 mg/mL suspension SHAKE LIQUID AND TAKE 10 ML BY MOUTH THREE TIMES DAILY BEFORE MEALS AND AT BEDTIME 4 Active topiramate (TOPAMAX) 50 MG tablet 4 Active traZODone (DESYREL) 50 MG tablet TAKE 1 TABLET BY MOUTH AT BEDTIME NEEDED FOR SLEEP 4 Active valACYclovir (VALTREX) 1000 MG tablet TAKE 1 TABLET BY MOUTH DAILY 3 Active Social History Tobacco Use Types Packs/Day Years Used Date Smoking Tobacco: Never Smokeless Tobacco: Current Tobacco Cessation:Ready to Q uit: No; Counseling Given: Yes Comments:Discussed nicotine product cessation. Comments No Sex and Gender Information Value Date Recorded Sex Assigned at Not on file Legal Sex Female 3:06 PM EDT Gender Identity Not on file Sexual Orientation Not on file Last Filed Vital Signs Vital Sign Reading Time Taken Comments Blood Pressure 102/60 05/05/2023 4:19 PM EDT Pulse 61 05/05/2023 4:19 PM EDT Temperature 36.8 ??C (98.2 ??F) 05/05/2023 4:19 PM ED T Respiratory Rate 16 05/05/2023 4:19 PM EDT Oxygen Saturation 100% 05/05/2023 4:19 PM EDT Inhaled Oxygen Concentration - - Weight - - Height - - Body Mass Index - - Plan of Treatment Health Maintenance Due Date Last Done Comments Colorectal Cancer: COLONOSCO PY Screening every 10 yrs (or Modifier) 1976 Depression: Screening Annual ly using PHQ-2/9 in Adults 18 yrs or above (or HM Modifier)([facility]) 1994 Hepatitis C Virus Infection in Adolescents and Adults: Screening (or Modifier) ([facility]) 1994 [facility] Screening Reminder: Shantel kelsey for all adults ([facility]) 1994 DTaP/Tdap/Td Vaccines ([facility]) (1 - Tdap) 10/13/1995 Cervical Cancer Screenin 1-65 yrs of age (or Modifier) 1997 Cervical Cancer Screening: P ap every 3 yrs pts age 21-65 1997 Cervical Cancer: Pap Screeni ng with Modifier timing ([facility]) 1997 Cervical Cancer: hrHPV alone or with cotesting Pap for Pts 30-65yrs screening every 5yrs ([facility]) 1997 Colorectal Cancer Screening 45 -75 Yrs (or HM Modifier) 2021 Colorectal Cancer: FLEXIBLE SIGMOIDOSCOPY Screening every 5 yrs 2021 Colorectal Cancer: Fecal Immunochemical Test (FIT) Annually [facility] 2021 Colorectal Cancer: High-sens itivity gFOBT Screening Annually [facility] 2021 Colorectal Cancer: Stool Col oguard Screening every 3 yrs 2021 Colorectal Cancer:CT Colonog paige Screening every 5 yrs 2021 Lipid Screening: Every 5 yrs for Women aged 45+ (or HM Modifier) ([facility]) 2022 Flu Vaccination: Yearly for ages 18mos through 64 years (or Modifier)([facility]) 09/17/2023 COVID-19 Vaccine Screening: Initial Series and Booster Status ([facility]) (2023- season) 2023 Tobacco Smoking Cessation: i n Adults excluding Women: Behavioral and Pharmacotherapy Interventions ([facility]) 05/04/2024 05/05/2023 Zoster/Shingles Vaccine Seri es Screening: Adults aged 18+ yrs (or HM Modifiers)([facility]) (1 of 2) 2026 Pneumococcal Vaccination Scr eening: Pts 0-19 & 19-64 yrs of age ([facility]) Aged Out No longer eligible b ased on patient's age to complete this topic Medical Devices Not on file Insurance [place] Care Teams Director Federal Relationship Specialty Start Date End Date Brian Vidal DO [address] [place] [phone] PCP - General Internal Medicine 05/05/23
--- OUTSIDE RECORDS SUMMARY | 2024-03-14 18:07 | XMS_ITS ---
Author Organization [facility] Address [address], [place] [id number] Care Team Providers Care Soda Jerker Name Role Phone No, PCP Primary Care Provider Murphy Hewitt Unavailable [phone] Kandice Sam Unavailable Encounters Encounter Location Date Provider Diagnosis [facility] [address] [place] [phone] 08/13/2023 Kandice Sam Plan Of Treatment No Information Progress Notes * Jerilyn KIMDOB: 7 (48 yo F)Acc No.[id number]:08/13/2023 Case Management Patient:?KIMJerilyn Provider:?Kandice Sam :1975???Age:47 Y???Sex:Female D ate:08/13/2023 Address:[address] [place] [address], [facility] [address] [facility] Pcp:PCP No Subjective: * Chief Complaints: * ??? * Medical History:? Objective: Assessment: Plan: * Treatment: * Images: Billing Information: * Visit Code:? * Procedure Codes:? Care Plan Details* * Electronic signature of Crescencio Sam on 03/14/2024 at 06:07 PM EST Sign off status: Pending * Provider:Luis Miguel Sam Date:? Generated for Luis Alberto ramos/Toma/Rudy on:?03/14/2024 06:07 PM EST
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
--- OUTSIDE RECORDS SUMMARY | 2024-03-14 18:08 | XMS_ITS ---
Author Organization [facility] Address [address] [place], [place] [id number] Care Team Providers Care Design Assistant Name Role Phone No, PCP Primary Care Provider Murphy Hewitt Unavailable [phone] Kandice Sam Unavailable Encounters Encounter Location Date Provider Diagnosis [facility] [address] [place] [phone] 11/10/2023 Kandice Sam Plan Of Treatment No Information Progress Notes * Jerilyn NORTONDOB: 7 (48 yo F)Acc No.[id number]:11/10/2023 Case Management Patient:?Jerilyn Norton Provider:?Kandice Sam :1975???Age:48 Y???Sex:Female D ate:11/10/2023 Address:[address] [place] [address], [facility] [address] [facility] Pcp:PCP No Subjective: * Chief Complaints: * ??? * HPI: ???Social Service:?Date of encounter?11/10/23.?Referral Source?walk-in, self.?Interpretation for medical provider?Mail forklift picker, authorization form.?Advocacy?none.?Follow-up Required:?yes.?Pt comprehension?Pt agrees with plan, Patient understood process and assisted with process.?Action taken (old)?form completion, Letter given to patient after photo copy made.? * Medical History:? Objective: Assessment: Plan: * Treatment: * Images: Billing Information: * Visit Code:? * Procedure Codes:? Care Plan Details* * Sign off status: Completed true * Provider:Luis Miguel Sam Date:? Generated for Luis Alberto ramos/Toma/Rudy on:?03/14/2024 06:08 PM EST History and Physical Notes * HPI (History of Present Illness) Category Sub-Category Detail Notes Social Service Referral Source walk-in, self Interpretation for medical provider Mail forklift picker, authorization form Action taken (old) form completion, Let ter given to patient after photo copy made Advocacy none Follow-up Required: yes Pt comprehension Pt agrees with plan, Patient understood process and assisted with process Date of encounter 11/10/23
--- OUTSIDE RECORDS SUMMARY | 2024-03-14 18:08 | XMS_ITS | Patient Health Record ---
[facility] Address [address] [place] [address] Care Team Providers Care Mill Operator Head Name Role Phone SHAYNA SOTELO N.P. Primary Care Provider Unavaila ryan MENDOZA RALPH Unavailable [phone] Allergies No Known Allergies Results Component Value Reference Range Notes [id number] Reviewed date:08/11/2023 09:20:22 AM Interpretation: Performing Lab:[facility], [address], [address], [place], Phone - [phone], Director - [facility] Notes/Report: RPR Non Reactive Non Reactive HBsAg Screen-[id number] Reviewed date:08/11/2023 09:20:12 AM Interpretation: Performing Lab:[facility], [address], [address], [place], Phone - [phone], Director - [facility] Notes/Report: HBsAg Screen Negative Negative HIV Ab/p24 Ag with Reflex-[id number] Reviewed date:08/11/2023 09:20:04 AM Interpretation: Performing Lab:[facility], [address], [address], [place], Phone - [phone], Director - [facility] Notes/Report: HIV Ab/p24 Ag Screen Non Reactive Non Reactive HIV-1/HIV-2 antibodies and HIV-1 p24 antigen were NOT detected. There is no laboratory evidence of HIV infection. HIV Negative [id number] IGP, CtNg Culture 30 Plus Reviewed date:08/26/2023 04:27:27 PM Interpretation: Performing Lab:[facility], [address], [address], [place], Phone - [phone], Director - [facility] Notes/Report: Clinical Information:CERVICAL, LMP: ABSENT WITH MIRENA IUD, S/P LEEP FORD Y 20''S Source.............Cervix LMP / Prev Treat...Lyles / BX Dates / Results....2019 S/P LEEP EARLY 20'S MIRENA Other..............IUD No. of containers..01 ThinPrep Vial Clinical Information:CERVICAL, LMP: ABSENT WITH MIRENA IUD, S/P LEEP FORD Y 20''S Source.............Cervix LMP / Prev Treat...Lyles / BX Dates / Results....2019 S/P LEEP EARLY 20'S MIRENA Other..............IUD No. of containers..01 ThinPrep Vial DIAGNOSIS: NEGATIVE FOR IN TRAEPITHELIAL LESION OR MALIGNANCY. Specimen adequacy: Satisfact ory for evaluation. No endocervical component is identified. Clinician provided ICD10: Z01.419 Z72.51 Performed by: Jean-Paul Thomas , Sample Puller (ASCP) . . Note: The Pap smear is a screening test designed to aid in the detection of premalignant and malignant conditions of the uterine cervix. It is not a diagnostic procedure and should not be used as the sole means of detecting cervical cancer. Both false-positive and false-negative reports do occur. . Test Methodology: This liquid based ThinPrep(R) pap test was screened with the use of an image guided system. HPV Aptima Positive Negative This nucleic acid amplification test detects fourteen high-risk HPV types (16,18,31,33,35,39,45,51,52,56, 58,59,66,68) without differentiation. HPV Genotype Reflex Criteria met, see HPV Genotype results. Chlamydia, Nuc. Acid Amp Negative Negative Gonococcus, Nuc. Acid Amp Negative Negative HPV Genotype 16 Negative Negative HPV Genotype 18,45 Negative Negative HCV Antibody-[id number] Reviewed date:08/11/2023 09:19:56 AM Interpretation: Performing Lab:[facility], [address], [address], [place], Phone - [phone], Director - [facility] Notes/Report: Hep C Virus Ab Non Reactive Non Reactive HCV antibody alone does not differentiate between previously resolved infection and active infection. Equivocal and Reactive HCV antibody results should be followed up with an HCV RNA test to support the diagnosis of active HCV infection. PDF Report Reviewed date:08/11/2023 09:20:26 AM Interpretation: Performing Lab:[facility], [address], [address], [place], Phone - [phone], Director - [facility] Notes/Report: Clinical Information:CERVICAL, LMP: ABSENT WITH MIRENA IUD, S/P LEEP FORD Y 20''S Source.............Cervix LMP / Prev Treat...Lyles / BX Dates / Results....2019 S/P LEEP EARLY 20'S MIRENA Other..............IUD No. of containers..01 ThinPrep Vial PDF Report Reviewed date:08/10/2023 02:31:45 PM Interpretation: Performing Lab:[facility], [address], [address], [place], Phone - [phone], Director - [facility] Notes/Report: Reason For Referral No Information Medications Medication SIG (Take, Route, Frequency, Duration) [...] less (1 point) Points 2 Interpretation Negative Problems Problem Type SNOMED Code ICD Code Onset Dates Problem Status W/U Status Risk Notes Problem Stenosis of cervix (13008614) Stricture and stenosis of cervix uteri (N88.2) Active confirmed Problem Essential hypertension (34552815) Essential (primary) hypertension (I10) Active confirmed Problem Major depression, single episode (51874828) Major depressive disorder, single episode, unspecified (F32.9) Active confirmed Problem Generalized anxiety disorder (37567130) Generalized anxiety disorder (F41.1) Active confirmed Problem History of novel psychoactive substance misuse (situation) (936991031) Other psychoactive substance abuse, 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 confirmed Problem COVID-19 (444461762) COVID-19 (U07.1) Active confirmed Vital Signs Temperature 98.0 degrees Fahrenheit 12/18/2023 Blood pressure diastolic 68 mm Hg 12/18/2023 Height 65 in 12/18/2023 Blood pressure systolic 102 mm Hg 12/18/2023 Weight 139 lbs 12/18/2023 BMI 23.13 kg/m2 12/18/2023 Encounters Encounter Location Date Provider Diagnosis [place] [address] [address] 09/04/2023 MENDOZA RALPH [place] [address] [address] 08/03/2023 MENDOZA RALPH Encounter for gynecological examination (general) (routine) without abnormal findings Z01.419 ; Encounter for screening mammogram for malignant neoplasm of breast Z12.31 ; Encounter for screening for infections with a predominantly sexual mode of transmission Z11.3 ; High risk heterosexual behavior Z72.51 and Displacement of intrauterine contraceptive device, initial encounter T[facility] [address] [address] 12/18/2023 MENDOZA RALPH Encounter for remova l of intrauterine contraceptive device Z30.432 [address] [place] [address] [address] 12/18/2023 MENDOZA RALPH Assessments Encounter Date Diagnosis (ICD Code) Assessment Notes Treatment Notes Treatment Clinical Notes Section Notes 08/03/2023 Encounter for gynecological examination (general) (routine) without abnormal findings (ICD-10 - Z01.419) During the visit, the following areas of concern were addressed: Discussed cervical cancer screening with either cytology alone every 3 years or high risk HPV co-testing every 5 years as per ASCCP guidelines. Advised continued annual pelvic exams. Patient encouraged to increase her level of exercise. SBE technique encouraged/tau ght. Patient reminded when annual mammogram is due. Patient encouraged to keep colon screening up to date. 12/18/2023 Encounter for removal of intrauterine contraceptive device (ICD-10 - Z30.432) Unable to remove IUD. Discussed with patient that she can choose to have a surgical procedure to remove the IUD, or she can leave the IUD in situ. She has anxiety and is having a hard time dealing with leaving the IUD in place. Will refer for surgical consult. 08/03/2023 Encounter for screening mammogram for malignant neoplasm of breast (ICD-10 - Z12.31) 08/03/2023 Encounter for screening for infections with a predominantly sexual mode of transmission (ICD-10 - Z11.3) 08/03/2023 High risk heterosexual behavior (ICD-10 - Z72.51) 08/03/2023 Displacement of intrauterine contraceptive device, initial encounter (ICD-10 - T83.32XA) Cervical os not visible, likely due to scarring s/p LEEP procedure. Threads not seen. Will verify presence of IUD. If localized in the proper position, will leave in place. If not in the proper position, may consider referral to surgeon for removal under anesthesia. Plan Of Treatment Pending Test Test Name Order Date ULTRASOUND: PELVIC W/TRANSVAGINAL 2023 MM Digital Screening Mammogram 3D 2023 Next Appt Details Provider Name:MENDOZA Richter, 08/04/2024 10:30:00 AM, [address], [address], [place], [address], Insurance Providers Payer Name Payer Address Payer Phone Subscriber Number Group Number Insured Name Patient Relationship to Insured Coverage Start Date Coverage End Date [facility] [id number] [facility], [address] [place] [phone] [id number] GURPREET KIM Self - patient is the insured Medical (General) History Medical History History ICD Code Major depressive disorder, single episod e, unspecified F32.9 Essential (primary) hypertension I10 COVID-19 U07.1 Generalized anxiety disorder F41.1 Other psychoactive substance abuse, in r emission F19.11 Surgical History Surgery Date(Month/Year) Laparoscopic Cholecystectomy 05/2023 Umbilical hernia repair with mesh Hospitalization History Reason Date(Month/Year) childbirth
--- OUTSIDE RECORDS SUMMARY | 2024-03-14 18:08 | XMS_ITS ---
Author Organization [employer] [facility] Address [address] [place] [address] Care Team Providers Care Flap Presser Name Role Phone SHAYNA SOTELO N.P. Primary Care Provider MENDOZA Jarrett [phone] REASON FOR VISIT ? IUD REMOVAL Medications [...] Active Encounters Encounter Location Date Provider Diagnosis [facility] [address] [address] 12/10/2023 MENDOZA RALPH Encounter for remova l [...] Follow Up: prn, Reason: Provider Name:MENDOZA Richter, 08/04/2024 10:30:00 AM, [address] [place] [address], [address], [place], [address], Progress Notes * GURPREET KIMDOB: 7 (48 yo F)Acc No.[id number]:12/10/2023 PROGRESS NOTES Patient:GURPREET JOHNS Provider:?MENDOZA RALPH MD :1975???Age:48 Y???Sex:Female D ate:12/10/2023 Address:[place] [address], [id number] Pcp:SHAYNA SOTELO N.P. Subjective: * Chief Complaints: * ???1. ? IUD REMOVAL. * HPI: ???Constitutional:? Patient presents for IUD [...] IUD in the correct position. * Medical History:?Major depre ssive disorder, single episode, unspecified, Essential (primary) hypertension, COVID-19, Generalized anxiety disorder, Other psychoactive substance abuse, in remission. 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 Control:?Mirena intrauterine device.?Menarche?15.? * OB History:?Total pregnancies?2.?Total living children?2.?NVD?2.? # 1:?normal spontaneous vaginal delivery (), 04/29/2000, Jerome, 7lb 11oz, complicated by pre-eclampsia.? # 2:?normal spontaneous vaginal delivery (), 05/07/2002, Boo, 7lb 11oz, no complications.? * Medications:?Taking traZODon e HCl 50 MG Tablet 1 tablet at [...] NEEDED FOR MODERATE PAIN Oral Objective: * Vitals:? Assessment: * Assessment: 1.?Stricture and stenosis of cervix uteri - N88.2???2.?Encounter for removal of intrauterine contraceptive device - Z30.432 (Primary)??? Plan: * Treatment: * Procedures:?A speculum was placed in the vaginal so as to adequately expose the cervix. The IUD strings were grasped and the IUD removed without difficulty or incident. She tolerated the procedure well. ? * Procedure Codes:?92758 REMOV E INTRAUTERINE DEVICE * Follow Up:?prn * Images: Billing Information: * Visit Code:? * Procedure Codes:? 64027 REMOVE INTRAUTERINE DEVICE. * Electronic signature of MENDOZA RALPH MD on 03/14/2024 at 06:07 PM EST Sign off status: Pending * Provider:?MENDOZA RALPH MD Date:?2023 Generated for Luis Alberto ramos/Toma/Christositting on:?03/14/2024 06:07 PM EST
--- OUTSIDE RECORDS SUMMARY | 2024-03-14 18:08 | XMS_ITS ---
Author Organization [facility] Address [address] [place], [place] [address] Care Team Providers Care Instant Printer Operator Name Role Phone No, PCP Primary Care Provider Murphy Hewitt Unavailable [phone] Kandice Sam Unavailable Encounters Encounter Location Date Provider Diagnosis [facility] [address] [place] [phone] 10/05/2023 Kandice Sam Plan Of Treatment No Information Progress Notes * NORTONJerilynDOB: 7 (47 yo F)Acc No.[id number]:10/05/2023 Case Management Patient:?Jerilyn Norton Provider:?Kandice Sam :1975???Age:47 Y???Sex:Female D ate:10/05/2023 Address:[address] [place] [address], [address] [facility] Pcp:PCP No Subjective: * Chief Complaints: * ??? * HPI: ???Social Service:?Date of encounter?[id number].?Referral Source?walk-in, self, returning client.?Interpretation for medical provider?Mass ID, Mail bean picker.?Follow-up Required:?yes, Type of follow-up: CM.?Pt comprehension?Pt agrees with plan, Patient understood process and assisted with process.?Action taken (old)?form completion: RMV affidavid.? * Medical History:? Objective: Assessment: Plan: * Treatment: * Images: Billing Information: * Visit Code:? * Procedure Codes:? Care Plan Details* * Sign off status: Completed true * Provider:Luis Miguel Sam Date:? Generated for Luis Alberto ramos/Toma/Rudy on:?03/14/2024 06:07 PM EST History and Physical Notes * HPI (History of Present Illness) Category Sub-Category Detail Notes Social Service Referral Source walk-in, self, r eturning client Interpretation for medical provider Mass ID, Mail bean picker Action taken (old) form completion: RMV affidavid Follow-up Required: yes, Type of follow- up: CM Pt comprehension Pt agrees with plan, Patient understood process and assisted with process Date of encounter [id number]
== END 2024-03-14 13:55 | disposition home or self-care (01) ==
PROVIDERS: PCP Internal Medicine
DX: F11.90 Opioid use, unspecified, uncomplicated (principal)

== ENCOUNTER → 2024-03-14 13:24 | Outpatient (BNVA) | payer MEDICAID, SELFPAY | PROVIDERS: PCP Internal Medicine | DX: F11.90 Opioid use, unspecified, uncomplicated (principal) | CPT/HCPCS: 96372; J0578 ==

== ENCOUNTER 2024-04-18 09:32 | Outpatient (AMB) | payer MEDICAID, SELFPAY ==
--- OUTSIDE RECORDS SUMMARY | 2024-04-18 10:34 | XMS_ITS ---
Author Organization [facility] [employer] [facility] Address [address] [place] [address] Care Team Providers Care Dormitory Keeper Name Role Phone SHAYNA SOTELO N.P. Primary Care Provider MENDOZA Jarrett [phone] REASON FOR VISIT ? IUD REMOVAL Medications [...] Active Encounters Encounter Location Date Provider Diagnosis [facility] [employer] [address] [address] 12/10/2023 MENDOZA RALPH Encounter for remova l [...] Reason: Provider Name:MENDOZA Richter, 08/04/2024 10:30:00 AM, [address] [place] [address], [address], [place], [address], Progress Notes * GURPREET KIMDOB: 7 (48 yo F)Acc No.[id number]:12/10/2023 PROGRESS NOTES Patient:GURPREET JOHNS Provider:?MENDOZA RALPH MD :1975???Age:48 Y???Sex:Female D ate:12/10/2023 Address:[address] [address], [facility] [place] Pcp:SHAYNA SOTELO N.P. Subjective: * Chief Complaints: [...] Other psychoactive substance abuse, in remission. 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 ? * Procedure Codes:?65429 REMOV E INTRAUTERINE DEVICE * Follow Up:?prn * Images: Billing Information: * Visit Code:? * Procedure Codes:? 92296 REMOVE INTRAUTERINE DEVICE. * Electronic signature of MENDOZA RALPH MD on 04/18/2024 at 10:34 AM EST Sign off status: Pending * Provider:?MENDOZA RALPH MD Date:?2023 Generated for Luis Alberto ramos/Toma/eTdemarsmitting on:?04/18/2024 10:34 AM EST
--- OUTSIDE RECORDS SUMMARY | 2024-04-18 10:34 | XMS_ITS ---
Author Organization [employer] [facility] Address [address] [facility] [address] [place] [address] Care Team Providers Care Showroom Sales Assistant Name Role Phone SHAYNA SOTELO N.P. Primary Care Provider MENDOZA Jarrett [phone] REASON FOR VISIT [facility] FYI Encounters Encounter Location Date Provider Diagnosis [facility] [address] [facility] [place] [address] 12/18/2023 MENDOZA RALPH Plan Of Treatment Next Appt Details Provider Name:MENDOZA Richter, 08/04/2024 10:30:00 AM, [address] [facility], [address], [place], [address], Progress Notes * GURPREET KIMDOB: 7 (48 yo F)Acc No.[id number]:12/18/2023 Patient:?GURPREET KIM :1975???Age:48 Y???Sex:Female Address:[address] [address], [place], [address] * true * Date:? Generated for Printi ng/Fasushilag/eTransmitting on:?04/18/2024 10:33 AM EST
--- OUTSIDE RECORDS SUMMARY | 2024-04-18 10:34 | XMS_ITS | Patient Health Record ---
Author Organization [facility] Address [address] [place], [place] [address] Care Team Providers Care Field Administrative Assistant Name Role Phone No, PCP Primary Care Provider Murphy Hewitt Unavailable [phone] Kandice Sam Unavailable Reason For Referral No Information Encounters Encounter Location Date Provider Diagnosis [facility] [address] [place] [phone] 06/03/2023 Murphy Guardado [facility] [address] [place] [phone] 08/13/2023 Kandice Sam [facility] [address] [place] [phone] 10/05/2023 Kandice Sam [facility] [address] [place] [phone] 11/10/2023 Kandice Sam Plan Of Treatment No Information Insurance Providers Payer Name Payer Address Payer Phone Subscriber Number Group Number Insured Name Patient Relationship to Insured Coverage Start Date Coverage End Date [place] Standard [address] [place] [address] [id number] Jerilyn Norton Self - patient is the insured 4 [facility] [address] [place] [address] [id number] Jerilyn Norton Self - patient is the insured 4
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
--- OUTSIDE RECORDS SUMMARY | 2024-04-18 10:34 | XMS_ITS ---
Author Organization [facility] Address [address] [place], [place] [address] Care Team Providers Care Manager Statistics Name Role Phone No, PCP Primary Care Provider Murphy Hewitt Unavailable [phone] Kandice Sam Unavailable Encounters Encounter Location Date Provider Diagnosis [facility] [address] [place] [phone] 08/13/2023 Kandice Sam Plan Of Treatment No Information Progress Notes * Jerilyn KIMDOB: 7 (48 yo F)Acc No.[id number]:08/13/2023 Case Management Patient:?KIMJerilyn Provider:?Kandice Sam :1975???Age:47 Y???Sex:Female D ate:08/13/2023 Address:[address] [place] [address], [facility] 0 [facility] Pcp:PCP No Subjective: * Chief Complaints: * ??? * Medical History:? Objective: Assessment: Plan: * Treatment: * Images: Billing Information: * Visit Code:? * Procedure Codes:? Care Plan Details* * Electronic signature of Crescencio Sam on 04/18/2024 at 10:34 AM EST Sign off status: Pending * Provider:Luis Miguel Sam Date:? Generated for Luis Alberto ramos/Toma/Rudy on:?04/18/2024 10:34 AM EST
--- OUTSIDE RECORDS SUMMARY | 2024-04-18 10:35 | XMS_ITS ---
Author Organization [facility] Address [address] [place], [place] [address] Care Team Providers Care Composition Mixer Name Role Phone No, PCP Primary Care Provider Murphy Hewitt Unavailable [phone] Kandice Sam Unavailable Encounters Encounter Location Date Provider Diagnosis [facility] [address] [place] [phone] 11/10/2023 Kandice Sam Plan Of Treatment No Information Progress Notes * Jerilyn NORTONDOB: 7 (48 yo F)Acc No.[id number]:11/10/2023 Case Management Patient:?Jerilyn Norton Provider:?Kandice Sam :1975???Age:48 Y???Sex:Female D ate:11/10/2023 Address:[address] [place] [address], [facility] 0 [facility] Pcp:PCP No Subjective: * Chief Complaints: * ??? * HPI: ???Social Service:?Date of encounter?11/10/23.?Referral Source?walk-in, self.?Interpretation for medical provider?Mail pickling operator, authorization form.?Advocacy?none.?Follow-up Required:?yes.?Pt comprehension?Pt agrees with plan, Patient understood process and assisted with process.?Action taken (old)?form completion, Letter given to patient after photo copy made.? * Medical History:? Objective: Assessment: Plan: * Treatment: * Images: Billing Information: * Visit Code:? * Procedure Codes:? Care Plan Details* * Sign off status: Completed true * Provider:Luis Miguel Sam Date:? Generated for Luis Alberto ramos/Toma/Rudy on:?04/18/2024 10:35 AM EST History and Physical Notes * HPI (History of Present Illness) Category Sub-Category Detail Notes Social Service Referral Source walk-in, self Interpretation for medical provider Mail pickling operator, authorization form Action taken (old) form completion, Let ter given to patient after photo copy made Advocacy none Follow-up Required: yes Pt comprehension Pt agrees with plan, Patient understood process and assisted with process Date of encounter 11/10/23
--- OUTSIDE RECORDS SUMMARY | 2024-04-18 10:35 | XMS_ITS ---
Author Organization [facility] Address [address] [place], [place] [address] Care Team Providers Care Material Handler Floorperson Name Role Phone No, PCP Primary Care Provider Murphy Hewitt Unavailable [phone] Kandice Sam Unavailable Encounters Encounter Location Date Provider Diagnosis [facility] [address] [place] [phone] 10/05/2023 Kandice Sam Plan Of Treatment No Information Progress Notes * NORTONJerilynDOB: 7 (47 yo F)Acc No.[id number]:10/05/2023 Case Management Patient:?Jerilyn Norton Provider:?Kandice Sam :1975???Age:47 Y???Sex:Female D ate:10/05/2023 Address:[address] [place] [address], [address] [facility] Pcp:PCP No Subjective: * Chief Complaints: * ??? * HPI: ???Social Service:?Date of encounter?28325650.?Referral Source?walk-in, self, returning client.?Interpretation for medical provider?Mass ID, Mail bean picker machine operator.?Follow-up Required:?yes, Type of follow-up: CM.?Pt comprehension?Pt agrees with plan, Patient understood process and assisted with process.?Action taken (old)?form completion: RMV affidavid.? * Medical History:? Objective: Assessment: Plan: * Treatment: * Images: Billing Information: * Visit Code:? * Procedure Codes:? Care Plan Details* * Sign off status: Completed true * Provider:Luis Miguel Sam Date:? Generated for Luis Alberto ramos/Toma/Rudy on:?04/18/2024 10:34 AM EST History and Physical Notes * HPI (History of Present Illness) Category Sub-Category Detail Notes Social Service Referral Source walk-in, self, r eturning client Interpretation for medical provider Mass ID, Mail bean picker machine operator Action taken (old) form completion: RMV affidavid Follow-up Required: yes, Type of follow- up: CM Pt comprehension Pt agrees with plan, Patient understood process and assisted with process Date of encounter [id number]
--- OUTSIDE RECORDS SUMMARY | 2024-04-18 10:35 | XMS_ITS | Patient Health Record ---
Author Organization [employer] [facility] Address [address] [facility] [address] [place] [address] Care Team Providers Care Ethics Instructor Name Role Phone SHAYNA SOTELO N.P. Primary Care Provider Unavaila ryan MENDOZA RALPH Unavailable [phone] Allergies No Known Allergies Results Component Value Reference Range Notes [id number] Reviewed date:08/11/2023 09:20:22 AM Interpretation: Performing Lab:[facility], [address], [address], [place], Phone - [phone], Director - [facility] Notes/Report: RPR Non Reactive Non Reactive HBsAg Screen-[id number] Reviewed date:08/11/2023 09:20:12 AM Interpretation: Performing Lab:[facility], [address], [address], [place], Phone - [phone], Director - [place] Notes/Report: HBsAg Screen Negative Negative HIV Ab/p24 Ag with Reflex-[id number] Reviewed date:08/11/2023 09:20:04 AM Interpretation: Performing Lab:[facility], [address], [address], [employer], Phone - [phone], Director - [facility] Notes/Report: HIV Ab/p24 Ag Screen Non Reactive Non Reactive HIV-1/HIV-2 antibodies and HIV-1 p24 antigen were NOT detected. There is no laboratory evidence of HIV infection. HIV Negative 182919-Kbs IGP, CtNg Culture 30 Plus Reviewed date:08/26/2023 04:27:27 PM Interpretation: Performing Lab:[facility], [address], [address], [place], Phone - [phone], Director - [place] Notes/Report: Clinical Information:CERVICAL, LMP: ABSENT WITH MIRENA IUD, S/P LEEP FORD Y 20''S Source.............Cervix LMP / Prev Treat...Union / BX Dates / Results....2019 S/P LEEP EARLY 20'S MIRENA Other..............IUD No. of containers..01 ThinPrep Vial Clinical Information:CERVICAL, LMP: ABSENT WITH MIRENA IUD, S/P LEEP FORD Y 20''S Source.............Cervix LMP / Prev Treat...Union / BX Dates / Results....2019 S/P LEEP EARLY 20'S MIRENA Other..............IUD No. of containers..01 ThinPrep Vial DIAGNOSIS: NEGATIVE FOR IN TRAEPITHELIAL LESION OR MALIGNANCY. Specimen adequacy: Satisfact ory for evaluation. No endocervical component is identified. Clinician provided ICD10: Z01.419 Z72.51 Performed by: Jean-Paul Thomas , Laserist (ASCP) . . Note: The Pap smear [...] Negative HPV Genotype 18,45 Negative Negative HCV Antibody-[id number] Reviewed date:08/11/2023 09:19:56 AM Interpretation: Performing Lab:[facility], [address], [address], [place], Phone - [phone], Director - [facility] Notes/Report: Hep C Virus Ab Non Reactive Non Reactive HCV antibody alone does not differentiate between previously resolved infection and active infection. Equivocal and Reactive HCV antibody results should be followed up with an HCV RNA test to support the diagnosis of active HCV infection. PDF Report Reviewed date:08/11/2023 09:20:26 AM Interpretation: Performing Lab:[facility], [address], [address], [place], Phone - [phone], Director - [facility] Notes/Report: Clinical Information:CERVICAL, LMP: ABSENT WITH MIRENA IUD, S/P LEEP FORD Y 20''S Source.............Cervix LMP / Prev Treat...Union / BX Dates / Results....2019 S/P LEEP EARLY 20'S MIRENA Other..............IUD No. of containers..01 ThinPrep Vial PDF Report Reviewed date:08/10/2023 02:31:45 PM Interpretation: Performing Lab:[facility], [address], [address], [place], Phone - [phone], Director - [facility] Notes/Report: Reason For Referral No Information Medications [...] Status Risk Notes Problem Stenosis of cervix (59359150) Stricture and stenosis of cervix uteri (N88.2) Active confirmed Problem Essential hypertension (11225188) Essential (primary) hypertension (I10) Active confirmed Problem Major depression, single episode (08320098) Major depressive disorder, single episode, unspecified (F32.9) Active confirmed Problem Generalized anxiety disorder (33314859) Generalized anxiety disorder (F41.1) Active confirmed Problem History of novel psychoactive substance misuse (situation) (673596926) Other psychoactive substance abuse, 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 confirmed Problem COVID-19 (806622136) COVID-19 (U07.1) Active confirmed Vital Signs Temperature 98.0 degrees Fahrenheit 12/18/2023 Blood pressure diastolic 68 mm Hg 12/18/2023 Height 65 in 12/18/2023 Blood pressure systolic 102 mm Hg 12/18/2023 Weight 139 lbs 12/18/2023 BMI 23.13 kg/m2 12/18/2023 Encounters Encounter Location Date Provider Diagnosis [place] [address] [address] [address] 09/04/2023 MENDOZA RALPH [place] [address] [address] 08/03/2023 MENDOZA RALPH Encounter for gynecological examination (general) (routine) without abnormal findings Z01.419 ; Encounter for screening mammogram for malignant neoplasm of breast Z12.31 ; Encounter for screening for infections with a predominantly sexual mode of transmission Z11.3 ; High risk heterosexual behavior Z72.51 and Displacement of intrauterine contraceptive device, initial encounter T83.32XA [facility] [place] [address] [address] 12/18/2023 MENDOZA RALPH Encounter for remova l of intrauterine contraceptive device Z30.432 [place] [address] [address] 12/18/2023 MENDOZA RALPH Assessments Encounter Date Diagnosis [...] Name:MENDOZA Richter, 08/04/2024 10:30:00 AM, [address] [facility] [address], [address], [place], [address], Insurance Providers Payer Name Payer Address Payer Phone Subscriber Number Group Number Insured Name Patient Relationship to Insured Coverage Start Date Coverage End Date [facility] [id number] [facility], [address] [place] [phone] [id number] GURPREET KIM Self - patient is the [...]
--- NOTE | 2024-04-18 10:56 | AM.OFFVISNUR ---
Vital Signs 04/18/24 11:05 BP 135/80 Blood Pressure Location Lt brachial Position Sitting Pulse 88 Pulse Source Pulse Oximeter Pulse Oximetry (%) 98 Oxygen Delivery Method Room Air Intake Visit Reasons: Brix Injection Allergies No Known Allergies [No Known Allergies*] Allergy (Verified 04/30/23 15:22) Office Meds buprenorphine 128 mg/0.36 mL solution,ext.rel.subcutaneous syringe Performing Provider: Kamini Salguero CNP Performing Location: [facility] Administered by: Leah Jackson RN on 04/18/24 11:04 Dose Route Admin Location Dispensed Lot Number Expiration Date [facility][NOTE 3] [employer] Tile Setter [address] 0.36 mL [id number] 05/16/26 74462-813-51 [employer]. Assessment & Plan Assessment & Plan Orders: Orders AMB Buprenorphine Injection - Patient Supplied 04/18/24 F11.90 - Opioid use, unspecified, uncomplicated Medications: New buprenorphine ER 128 mg (0.36 mL) subcut ONCE 0.36 mL 0RF F11.90 - Opioid use, unspecified, uncomplicated Coding
[2024-04-18 11:05] VITALS: BP 135/80; PULSE 88; O2SAT 98
== END 2024-04-18 10:06 | disposition home or self-care (01) ==
PROVIDERS: PCP Nurse Practitioner Family
DX: F11.90 Opioid use, unspecified, uncomplicated (principal)

== ENCOUNTER → 2024-04-18 09:32 | Outpatient (BNVA) | payer OTHER, SELFPAY | PROVIDERS: PCP Nurse Practitioner Family | DX: F11.20 Opioid dependence, uncomplicated (principal) | CPT/HCPCS: 96372; J0578 ==

== ENCOUNTER 2024-05-26 10:21 | Outpatient (AMB) | payer MEDICAID, SELFPAY ==
--- NOTE | 2024-05-26 11:17 | AM.OFFVISNUR ---
Intake Visit Reasons: Brix Injection Allergies No Known Allergies [No Known Allergies*] Allergy (Verified 04/30/23 15:22) Nursing Note Patient Presents for Brixadi Injection. Current Dose 128mg . Given in the COURT with no noted or stated complications. Denies any issues with previous injection. Denies symptoms, and denies any break through cravings. Will follow up with RN in 4 weeks for injection. Office Meds buprenorphine 128 mg/0.36 mL solution,ext.rel.subcutaneous syringe Performing Provider: Rose Qiu MD Performing Location: [facility] Administered by: Leah Jackson RN on 05/26/24 11:23 Dose Route Admin Location Dispensed Lot Number Expiration Date [facility] Performance Tester [address] 0.36 mL [id number] 05/16/26 54438-700-79 [employer]. Assessment & Plan Assessment & Plan Orders: Orders AMB Buprenorphine Injection - Patient Supplied Today F11.90 - Opioid use, unspecified, uncomplicated Medications: New buprenorphine ER 128 mg (0.36 mL) subcut ONCE 0.36 mL 0RF F11.90 - Opioid use, unspecified, uncomplicated Coding
--- OUTSIDE RECORDS SUMMARY | 2024-05-26 12:12 | XMS_ITS ---
Author Organization [employer] [facility] Address [address] [facility] [address] [place] [address] Care Team Providers Care Customer Support Engineer Name Role Phone SHAYNA SOTELO N.P. Primary Care Provider MENDOZA Jarrett [phone] REASON FOR VISIT [facility] REQ FYI Encounters Encounter Location Date Provider Diagnosis [facility] [address] [facility] [address] [place] [address] 12/18/2023 MENDOZA RALPH Plan Of Treatment Next Appt Details Provider Name:MENDOZA Richter, 08/04/2024 10:30:00 AM, [address] [facility], [address], [place], [address], Progress Notes * GURPREET KIMDOB: 7 (48 yo F)Acc No.[id number]:12/18/2023 Patient:?GURPREET KIM :1975???Age:48 Y???Sex:Female Address:[address] [place] [address], [place], [address] * true * Date:? Generated for Printi ng/Faxing/eTransmitting on:?05/26/2024 12:12 PM EDT
--- OUTSIDE RECORDS SUMMARY | 2024-05-26 12:13 | XMS_ITS ---
Author Organization [facility] Address [address] [place], [place] [address] Care Team Providers Care Set Up Mechanic Heading Machines Name Role Phone No, PCP Primary Care Provider Murphy Hewitt Unavailable [phone] Kandice Sam Unavailable Encounters Encounter Location Date Provider Diagnosis [facility] [address] [place] [phone] 08/13/2023 Kandice Sam Plan Of Treatment No Information Progress Notes * Jerilyn KIMDOB: 7 (48 yo F)Acc No.[id number]:08/13/2023 Case Management Patient:?KIMJerilyn Provider:?Kandice Sam :1975???Age:47 Y???Sex:Female D ate:08/13/2023 Address:[address] [place] [address], [facility] 0 [facility] Pcp:PCP No Subjective: * Chief Complaints: * ??? * Medical History:? Objective: Assessment: Plan: * Treatment: * Images: Billing Information: * Visit Code:? * Procedure Codes:? Care Plan Details* * Electronic signature of Crescencio Sam on 05/26/2024 at 12:13 PM EDT Sign off status: Pending * Provider:Luis Miguel Sam Date:? Generated for Luis Alberto ramos/Toma/eTdemarsmitting on:?05/26/2024 12:13 PM EDT
--- OUTSIDE RECORDS SUMMARY | 2024-05-26 12:13 | XMS_ITS ---
Author Organization [facility] Address [address] [place] [address] Care Team Providers Care Administrative Supervisor Name Role Phone SHAYNA SOTELO N.P. Primary Care Provider Raymon MUSEARTI BECKERA Unavailable [phone] Allergies No Known Allergies REASON FOR VISIT [...] Encounters Encounter Location Date Provider Diagnosis [facility] [address] [place] [address] 12/18/2023 MENDOZA RALPH Encounter for remova l [...] Name:MENDOZA MIMS S, 08/04/2024 10:30:00 AM, [address], [address], [place], [address], Progress Notes * GURPREET KIMDOB: 7 (48 yo F)Acc No.[id number]:12/18/2023 PROGRESS NOTES Patient:?GURPREET KIM Provider:?MENDOZA RALPH MD :1975???Age:48 Y???Sex:Female D ate:12/18/2023 Address:[address] [address], [place], [place] Pcp:SHAYNA SOTELO N.P. Subjective: * Chief Complaints: [...] bleeding between periods.? * Medical History:? * Naturopathic Doctor History:?/ Para?2/2.?Sexual activity?not currently sexually active.?Last Pap [...] * Images: Billing Information: * Visit Code:? 30688 Office Visit, Est Pt., Level 3. * Procedure Codes:? * Sign off status: Completed true * Provider:?MENDOZA RALPH MD Date:?2023 Generated for Luis Alberto ramos/Toma/eTransmitting on:?05/26/2024 12:13 PM EDT History and Physical Notes * HPI [...]
--- OUTSIDE RECORDS SUMMARY | 2024-05-26 12:13 | XMS_ITS | Patient Health Record ---
Author Organization [facility] Address [address], [place] [id number] Care Team Providers Care Skein Straightener Name Role Phone No, PCP Primary Care Provider Murphy Hewitt Unavailable [phone] Kandice Sam Unavailable Reason For Referral No Information Encounters Encounter Location Date Provider Diagnosis [facility] [address] [place] [phone] 06/03/2023 Murphy Guardado [facility] [address] [place] [address] [phone] 08/13/2023 Kandice Sam [facility] [address] [place] [address] [phone] 10/05/2023 Kandice Sam [facility] [address] [place] [address] [phone] 11/10/2023 Kandice Sam Plan Of Treatment No Information Insurance Providers Payer Name Payer Address Payer Phone Subscriber Number Group Number Insured Name Patient Relationship to Insured Coverage Start Date Coverage End Date [place] Medicaid Standard [address] [place] [address] [id number] Jerilyn Norton Self - patient is the insured 4 [facility] [address] [place] [address] [id number] Jerilyn Norton Self - patient is the insured 4
--- OUTSIDE RECORDS SUMMARY | 2024-05-26 12:13 | XMS_ITS ---
Author Organization [employer] [facility] Address [address] [place] [address] Care Team Providers Care Park Worker Supervisor Name Role Phone SHAYNA SOTELO N.P. Primary Care Provider MENDOZA Jarrett [phone] REASON FOR VISIT ? IUD REMOVAL Medications [...] Active Encounters Encounter Location Date Provider Diagnosis [facility] [employer] [address] [address] 12/10/2023 MENDOZA RALPH Encounter for remova l [...] Reason: Provider Name:MENDOZA Richter, 08/04/2024 10:30:00 AM, [address] [place] [address], [address], [place], [address], Progress Notes * GURPREET KIMDOB: [birth year] (48 yo F)Acc No.[id number]:12/10/2023 PROGRESS NOTES Patient:GURPREET JOHNS Provider:?MENDOZA RALPH MD :1975???Age:48 Y???Sex:Female D ate:12/10/2023 Address:[address] [address], [facility] Pcp:SHAYNA SOTELO N.P. Subjective: * Chief Complaints: [...] Other psychoactive substance abuse, in remission. * Tandem Mill Roller History:?/ Para?2/2.?Sexual activity?not currently sexually active.?Last Pap [...] tolerated the procedure well. ? * Procedure Codes:?86448 REMOV E INTRAUTERINE DEVICE * Follow Up:?prn * Images: Billing Information: * Visit Code:? * Procedure Codes:? 79279 REMOVE INTRAUTERINE DEVICE. * Electronic signature of MENDOZA RALPH MD on 05/26/2024 at 12:12 PM EDT Sign off status: Pending * Provider:?MENDOZA RALPH MD Date:?2023 Generated for Luis Alberto ramos/Toma/Lyndseysmitting on:?05/26/2024 12:12 PM EDT
--- OUTSIDE RECORDS SUMMARY | 2024-05-26 12:14 | XMS_ITS | Patient Health Record ---
Author Organization [facility] [employer] [facility] Address [address] [place] [address] Care Team Providers Care Buddhist Monk Name Role Phone SHAYNA SOTELO N.P. Primary Care Provider Unavaila ryan MENDOZA RALPH Unavailable [phone] Allergies No Known Allergies Results Component Value Reference Range Notes [id number] Reviewed date:08/11/2023 09:20:22 AM Interpretation: Performing Lab:[facility], [address], [place], Phone - [phone], Director - [place] Notes/Report: RPR Non Reactive Non Reactive HBsAg Screen-[id number] Reviewed date:08/11/2023 09:20:12 AM Interpretation: Performing Lab:[facility], [address], [place], Phone - [phone], Director - [place] Notes/Report: HBsAg Screen Negative Negative HIV Ab/p24 Ag with Reflex-[id number] Reviewed date:08/11/2023 09:20:04 AM Interpretation: Performing Lab:[facility], [address], [address], [place], Phone - [phone], Director - [place] Notes/Report: HIV Ab/p24 Ag Screen Non Reactive Non Reactive HIV-1/HIV-2 antibodies and HIV-1 p24 antigen were NOT detected. There is no laboratory evidence of HIV infection. HIV Negative 714147-Bci IGP, CtNg Culture 30 Plus Reviewed date:08/26/2023 04:27:27 PM Interpretation: Performing Lab:[facility], [address], [place], Phone - [phone], Director - [place] Notes/Report: Clinical Information:CERVICAL, LMP: ABSENT WITH MIRENA IUD, S/P LEEP FORD Y 20''S Source.............Cervix LMP / Prev Treat...Climax / BX Dates / Results....2019 S/P LEEP EARLY 20'S MIRENA Other..............IUD No. of containers..01 ThinPrep Vial Clinical Information:CERVICAL, LMP: ABSENT WITH MIRENA IUD, S/P LEEP FORD Y 20''S Source.............Cervix LMP / Prev Treat...Climax / BX Dates / Results....2019 S/P LEEP EARLY 20'S MIRENA Other..............IUD No. of containers..01 ThinPrep Vial DIAGNOSIS: NEGATIVE FOR IN TRAEPITHELIAL LESION OR MALIGNANCY. Specimen adequacy: Satisfact ory for evaluation. No endocervical component is identified. Clinician provided ICD10: Z01.419 Z72.51 Performed by: Jean-Paul Thomas , Special Events Manager (ASCP) . . Note: The Pap smear [...] Negative HPV Genotype 18,45 Negative Negative HCV Antibody-[id number] Reviewed date:08/11/2023 09:19:56 AM Interpretation: Performing Lab:[facility], [address], [address], [place], Phone - [phone], Director - [facility] Notes/Report: Hep C Virus Ab Non Reactive Non Reactive HCV antibody alone does not differentiate between previously resolved infection and active infection. Equivocal and Reactive HCV antibody results should be followed up with an HCV RNA test to support the diagnosis of active HCV infection. PDF Report Reviewed date:08/11/2023 09:20:26 AM Interpretation: Performing Lab:[facility], [address], [address], [place], Phone - [phone], Director - [facility] Notes/Report: Clinical Information:CERVICAL, LMP: ABSENT WITH MIRENA IUD, S/P LEEP FORD Y 20''S Source.............Cervix LMP / Prev Treat...Climax / BX Dates / Results....2019 S/P LEEP EARLY 20'S MIRENA Other..............IUD No. of containers..01 ThinPrep Vial PDF Report Reviewed date:08/10/2023 02:31:45 PM Interpretation: Performing Lab:[facility], [address], [address], [place], Phone - [phone], Director - [facility] Notes/Report: Reason For Referral No Information Medications [...] Status Risk Notes Problem Stenosis of cervix (47273723) Stricture and stenosis of cervix uteri (N88.2) Active confirmed Problem Essential hypertension (92731882) Essential (primary) hypertension (I10) Active confirmed Problem Major depression, single episode (72804193) Major depressive disorder, single episode, unspecified (F32.9) Active confirmed Problem Generalized anxiety disorder (98716392) Generalized anxiety disorder (F41.1) Active confirmed Problem History of novel psychoactive substance misuse (situation) (708941421) Other psychoactive substance abuse, 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 confirmed Problem COVID-19 (838140030) COVID-19 (U07.1) Active confirmed Vital Signs Temperature 98.0 degrees Fahrenheit 12/18/2023 Blood pressure diastolic 68 mm Hg 12/18/2023 Height 65 in 12/18/2023 Blood pressure systolic 102 mm Hg 12/18/2023 Weight 139 lbs 12/18/2023 BMI 23.13 kg/m2 12/18/2023 Encounters Encounter Location Date Provider Diagnosis [place] [address] [employer] [address] [address] 09/04/2023 MENDOZA RALPH [place] [address] [employer] [address] [address] 08/03/2023 MENDOZA RALPH Encounter for gynecological examination (general) (routine) without abnormal findings Z01.419 ; Encounter for screening mammogram for malignant neoplasm of breast Z12.31 ; Encounter for screening for infections with a predominantly sexual mode of transmission Z11.3 ; High risk heterosexual behavior Z72.51 and Displacement of intrauterine contraceptive device, initial encounter T83.32XA [facility] [place] [address] [address] [address] [address] 12/18/2023 MENDOZA RALPH Encounter for remova l of intrauterine contraceptive device Z30.432 [place] [address] [employer] [address] [address] 12/18/2023 MENDOZA RALPH Assessments Encounter Date Diagnosis [...] Provider Name:MENDOZA Richter, 08/04/2024 10:30:00 AM, [address], [place], [address], Insurance Providers Payer Name Payer Address Payer Phone Subscriber Number Group Number Insured Name Patient Relationship to Insured Coverage Start Date Coverage End Date [facility] [address] [facility], [address] [place] [phone] [id number] GURPREET KIM Self - patient is the [...]
--- OUTSIDE RECORDS SUMMARY | 2024-05-26 12:14 | XMS_ITS ---
Author Organization [facility] Address [address] [place], [place] [address] Care Team Providers Care Cap Sizer Name Role Phone No, PCP Primary Care Provider Murphy Hewitt Unavailable [phone] Kandice Sam Unavailable Encounters Encounter Location Date Provider Diagnosis [facility] [address] [place] [phone] 11/10/2023 Kandice Sam Plan Of Treatment No Information Progress Notes * Jerilyn NORTONDOB: 7 (48 yo F)Acc No.[id number]:11/10/2023 Case Management Patient:?Jerilyn Norton Provider:?Kandice Sam :1975???Age:48 Y???Sex:Female D ate:11/10/2023 Address:[address] [place] [address], [facility] [address] [facility] Pcp:PCP No Subjective: * Chief Complaints: * ??? * HPI: ???Social Service:?Date of encounter?11/10/23.?Referral Source?walk-in, self.?Interpretation for medical provider?Mail pick and shovel man, authorization form.?Advocacy?none.?Follow-up Required:?yes.?Pt comprehension?Pt agrees with plan, Patient understood process and assisted with process.?Action taken (old)?form completion, Letter given to patient after photo copy made.? * Medical History:? Objective: Assessment: Plan: * Treatment: * Images: Billing Information: * Visit Code:? * Procedure Codes:? Care Plan Details* * Sign off status: Completed true * Provider:Luis Miguel Sam Date:? Generated for Luis Alberto ramos/Toma/Rudy on:?05/26/2024 12:13 PM EDT History and Physical Notes * HPI (History of Present Illness) Category Sub-Category Detail Notes Social Service Referral Source walk-in, self Interpretation for medical provider Mail pick and shovel man, authorization form Action taken (old) form completion, Let ter given to patient after photo copy made Advocacy none Follow-up Required: yes Pt comprehension Pt agrees with plan, Patient understood process and assisted with process Date of encounter 11/10/23
--- OUTSIDE RECORDS SUMMARY | 2024-05-26 12:14 | XMS_ITS ---
Author Organization [facility] Address [address] [place], [place] [phone] Care Team Providers Care Director Records Management Name Role Phone No, PCP Primary Care Provider Murphy Hewitt Unavailable [phone] Kandice Sam Unavailable [phone] Encounters Encounter Location Date Provider Diagnosis [facility] [address] [place] [phone] 10/05/2023 Kandice Sam Plan Of Treatment No Information Progress Notes * NORTONJerilynDOB: 7 (47 yo F)Acc No.[id number]:10/05/2023 Case Management Patient:?Jerilyn Norton Provider:?Kandice Sam :1975???Age:47 Y???Sex:Female D ate:10/05/2023 Address:[address] [place] [address], [address] [facility] Pcp:PCP No Subjective: * Chief Complaints: * ??? * HPI: ???Social Service:?Date of encounter?94843932.?Referral Source?walk-in, self, returning client.?Interpretation for medical provider?[place] ID, Mail pickling drum operator.?Follow-up Required:?yes, Type of follow-up: CM.?Pt comprehension?Pt agrees with plan, Patient understood process and assisted with process.?Action taken (old)?form completion: RMV affidavid.? * Medical History:? Objective: Assessment: Plan: * Treatment: * Images: Billing Information: * Visit Code:? * Procedure Codes:? Care Plan Details* * Sign off status: Completed true * Provider:Luis Miguel Sam Date:? Generated for Luis Alberto ramos/Toma/uRdy on:?05/26/2024 12:13 PM EDT History and Physical Notes * HPI (History of Present Illness) Category Sub-Category Detail Notes Social Service Referral Source walk-in, self, r eturning client Interpretation for medical provider [place] ID, Mail pickling drum operator Action taken (old) form completion: RMV affidavid Follow-up Required: yes, Type of follow- up: CM Pt comprehension Pt agrees with plan, Patient understood process and assisted with process Date of encounter [phone]
== END 2024-05-26 10:58 | disposition home or self-care (01) ==
LOC: HO.HCC 10:22
PROVIDERS: PCP Nurse Practitioner Family
DX: F11.90 Opioid use, unspecified, uncomplicated (principal)

== ENCOUNTER → 2024-05-26 10:21 | Outpatient (BNVA) | payer OTHER, SELFPAY | PROVIDERS: PCP Nurse Practitioner Family | DX: F11.90 Opioid use, unspecified, uncomplicated (principal) | CPT/HCPCS: 96372; J0578 ==

== ENCOUNTER 2024-07-04 10:04 | Outpatient (AMB) | payer OTHER, SELFPAY ==
[2024-07-04 10:10] VITALS: PULSE 70; O2SAT 99
--- NOTE | 2024-07-04 10:10 | MHC.OFFVIS ---
Vital Signs 07/04/24 10:10 Pulse 70 Pulse Source Pulse Oximeter Pulse Oximetry (%) 99 Intake Visit Reasons: MAT Allergies No Known Allergies [No Known Allergies*] Allergy (Verified 07/04/24 10:53) HPI HPI MAT: Details: She is doing well and working on her Step 4. She is waiting for Brixadi and is expecting it tomorrow and setting up visit with Addiction RN, Gifty Castro. She will need some Sublocade until this happens. [facility] Medical History Cocaine use disorder Opioid use disorder No known health problems Social History Patient Tobacco Use Status: Current everyday Tobacco user Cigarettes Per Day: 2 Years Smoked: 20 Review of Systems Const All systems reviewed & are unremarkable except as noted in HPI and below Physical Exam Vital Signs: Last Vital Signs Pulse 70 07/04/24 10:10 Pulse Ox 99 07/04/24 10:10 Const General: cooperative Assessment & Plan Assessment & Plan (1) Opioid use disorder: Comment: She is doing well. Code(s): F11.99 - Opioid use, unspecified with unspecified opioid-induced disorder Category: Medical Plan: Continue Suboxone,one 8/2 bid until Brixadi arrives and is stable on it. Medications: New buprenorphine-naloxone 8-2 mg (Suboxone) 1 film sublingual BID 14 ea 0RF 7 days Coding Level of Care Code Est Pt Level 3 (06159) Diagnoses Opioid use disorder F11.99
--- OUTSIDE RECORDS SUMMARY | 2024-07-04 10:33 | XMS_ITS ---
Author Organization [employer] [facility] Address [address] [place] [address] Care Team Providers Care Birth Certificate Clerk Name Role Phone SHAYNA SOTELO N.P. Primary Care Provider MENDOZA Jarrett [phone] REASON FOR VISIT ? IUD REMOVAL Medications [...] Location Date Provider Diagnosis [facility] ENJ[facility] [employer] [address] [address] 12/10/2023 MENDOZA RALPH Encounter for remova l [...] Reason: Provider Name:MENDOZA Richter, 08/04/2024 10:30:00 AM, [address] [place] [address], [place], [address], Progress Notes * GURPREET KIMDOB: 7 (48 yo F)Acc No.[id number]:12/10/2023 PROGRESS NOTES Patient:GURPREET JOHNS Provider:?MENDOZA RALPH MD :1975???Age:48 Y???Sex:Female D ate:12/10/2023 Address:[place] [address], [facility] Pcp:SHAYNA SOTELO N.P. Subjective: * Chief Complaints: [...] Other psychoactive substance abuse, in remission. * Rn Float History:?/ Para?2/2.?Sexual activity?not currently sexually active.?Last Pap [...] tolerated the procedure well. ? * Procedure Codes:?70051 REMOV E INTRAUTERINE DEVICE * Follow Up:?prn * Images: Billing Information: * Visit Code:? * Procedure Codes:? 37861 REMOVE INTRAUTERINE DEVICE. * Electronic signature of MENDOZA RALPH MD on 07/04/2024 at 10:33 AM EDT Sign off status: Pending * Provider:?MENDOZA RALPH MD Date:?2023 Generated for Luis Alberto ramos/Toma/Lyndseysmitting on:?07/04/2024 10:33 AM EDT
--- OUTSIDE RECORDS SUMMARY | 2024-07-04 10:33 | XMS_ITS | Patient Health Record ---
Author Organization [facility] Address [address] [place], [place] [phone] Care Team Providers Care Site Foreman Name Role Phone No, PCP Primary Care Provider Murphy Hewitt Unavailable [phone] Kandice Sam Unavailable [phone] Reason For Referral No Information Encounters Encounter Location Date Provider Diagnosis [facility] [address] [place] [phone] 08/13/2023 Kandice Sam [facility] [address] [place] [phone] 10/05/2023 Kandice Sam [facility] [address] [place] [phone] 11/10/2023 Kandice Sam Plan Of Treatment No Information Insurance Providers Payer Name Payer Address Payer Phone Subscriber Number Group Number Insured Name Patient Relationship to Insured Coverage Start Date Coverage End Date [place] [address] [place] [address] [id number] Jerilyn Norton Self - patient is the insured 4 [facility] [address] [place] [address] [id number] Jerilyn Norton Self - patient is the insured 4
--- OUTSIDE RECORDS SUMMARY | 2024-07-04 10:33 | XMS_ITS ---
Author Organization [facility] Address [address] [place], [place] [id number] Care Team Providers Care Medical Typist Name Role Phone No, PCP Primary Care Provider Murphy Hewitt Unavailable [phone] Kandice Sam Unavailable [phone] Encounters Encounter Location Date Provider Diagnosis [facility] [address] [place] [phone] 08/13/2023 Kandice Sam Plan Of Treatment No Information Progress Notes * Jerilyn KIMDOB: 7 (48 yo F)Acc No.[id number]:08/13/2023 Case Management Patient:?KIMJerilyn Provider:?Kandice Sam :1975???Age:47 Y???Sex:Female D ate:08/13/2023 Address:[address] [place] [address], [facility] [address] [facility] Pcp:PCP No Subjective: * Chief Complaints: * ??? * Medical History:? Objective: Assessment: Plan: * Treatment: * Images: Billing Information: * Visit Code:? * Procedure Codes:? Care Plan Details* * Electronic signature of Crescencio Sam on 07/04/2024 at 10:33 AM EDT Sign off status: Pending * Provider:Luis Miguel Sam Date:? Generated for Luis Alberto ramos/Toma/eTdemarsmitting on:?07/04/2024 10:33 AM EDT
--- OUTSIDE RECORDS SUMMARY | 2024-07-04 10:34 | XMS_ITS | Patient Health Record ---
Author Organization [facility] Address [address] [place] [address] Care Team Providers Care Concrete Pipe Machine Operator Name Role Phone SHAYNA SOTELO N.P. Primary Care Provider Unavaila ryan MENDOZA RALPH Unavailable [phone] Allergies No Known Allergies Results Component Value Reference Range Notes [id number] Reviewed date:08/11/2023 09:20:22 AM Interpretation: Performing Lab:[facility], [address], [address], [place], Phone - [phone], Director - [facility] Notes/Report: RPR Non Reactive Non Reactive HBsAg Screen-[id number] Reviewed date:08/11/2023 09:20:12 AM Interpretation: Performing Lab:[facility], [address], [address], [place], Phone - [phone], Director - [facility] Notes/Report: HBsAg Screen Negative Negative HIV Ab/p24 Ag with Reflex-[id number] Reviewed date:08/11/2023 09:20:04 AM Interpretation: Performing Lab:[facility], [address], [address], [place], Phone - [phone], Director - [facility] Notes/Report: HIV Ab/p24 Ag Screen Non Reactive Non Reactive HIV-1/HIV-2 antibodies and HIV-1 p24 antigen were NOT detected. There is no laboratory evidence of HIV infection. HIV Negative [id number] IGP, CtNg Culture 30 Plus Reviewed date:08/26/2023 04:27:27 PM Interpretation: Performing Lab:[facility], [address], [address], [place], Phone - [phone], Director - [facility] Notes/Report: No. of containers..01 ThinPrep Vial Other..............IUD Dates / Results....2019 S/P LEEP EARLY 20'S MIRENA LMP / Prev Treat...[place] / BX Source.............Cervix Clinical Information:CERVICAL, LMP: ABSENT WITH MIRENA IUD, S/P LEEP FORD Y 20'S No. of containers..01 ThinPrep Vial Other..............IUD Dates / Results....2018 S/P LEEP EARLY 20S MIRENA LMP / Prev Treat...[place] / BX Source.............Cervix Clinical Information:CERVICAL, LMP: ABSENT WITH MIRENA IUD, S/P LEEP FORD Y 20S DIAGNOSIS: NEGATIVE FOR IN TRAEPITHELIAL LESION OR MALIGNANCY. Specimen adequacy: Satisfact ory for evaluation. No endocervical component is identified. Clinician provided ICD10: Z01.419 Z72.51 Performed by: Jean-Paul Thomas , Program Manager Transportation (ASCP) . . Note: The Pap smear [...] Negative HPV Genotype 18,45 Negative Negative HCV Antibody-[id number] Reviewed date:08/11/2023 09:19:56 AM Interpretation: Performing Lab:[facility], [address], [address], [place], Phone - [phone], Director - [facility] Notes/Report: Hep C Virus Ab Non Reactive Non Reactive HCV antibody alone does not differentiate between previously resolved infection and active infection. Equivocal and Reactive HCV antibody results should be followed up with an HCV RNA test to support the diagnosis of active HCV infection. PDF Report Reviewed date:08/11/2023 09:20:26 AM Interpretation: Performing Lab:[facility], [address], [address], [place], Phone - [phone], Director - [facility] Notes/Report: Clinical Information:CERVICAL, LMP: ABSENT WITH MIRENA IUD, S/P LEEP FORD Y 20''S Source.............Cervix LMP / Prev Treat...[place] / BX Dates / Results....2019 S/P LEEP EARLY 20'S MIRENA Other..............IUD No. of containers..01 ThinPrep Vial PDF Report Reviewed date:08/10/2023 02:31:45 PM Interpretation: Performing Lab:[facility], [address], [address], [place], Phone - [phone], Director - [facility] Notes/Report: Reason For Referral No [...] Status Risk Notes Problem Stenosis of cervix (69914545) Stricture and stenosis of cervix uteri (N88.2) Active confirmed Problem Essential hypertension (30725258) Essential (primary) hypertension (I10) Active confirmed Problem Major depression, single episode (26503960) Major depressive disorder, single episode, unspecified (F32.9) Active confirmed Problem Generalized anxiety disorder (89314292) Generalized anxiety disorder (F41.1) Active confirmed Problem History of novel psychoactive substance misuse (situation) (661365267) Other psychoactive substance abuse, 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 confirmed Problem COVID-19 (582758052) COVID-19 (U07.1) Active confirmed Vital Signs Temperature 98.0 degrees Fahrenheit 12/18/2023 Blood pressure diastolic 68 mm Hg 12/18/2023 Height 65 in 12/18/2023 Blood pressure systolic 102 mm Hg 12/18/2023 Weight 139 lbs 12/18/2023 BMI 23.13 kg/m2 12/18/2023 Encounters Encounter Location Date Provider Diagnosis [place] [address] [address] 09/04/2023 MENDOZA RALPH [place] [address] [address] 08/03/2023 MENDOZA RALPH Encounter for gynecological examination (general) (routine) without abnormal findings Z01.419 ; Encounter for screening mammogram for malignant neoplasm of breast Z12.31 ; Encounter for screening for infections with a predominantly sexual mode of transmission Z11.3 ; High risk heterosexual behavior Z72.51 and Displacement of intrauterine contraceptive device, initial encounter T83.32XA [facility] [employer] [place] [address] [address] 12/18/2023 MENDOZA RALPH Encounter for remova l of intrauterine contraceptive device Z30.432 [place] [address] [address] 12/18/2023 MENDOZA RALPH Assessments Encounter Date Diagnosis [...] Provider Name:MENDOZA [place], 08/04/2024 10:30:00 AM, [address], [address], [place], [address], Insurance Providers Payer Name Payer Address Payer Phone Subscriber Number Group Number Insured Name Patient Relationship to Insured Coverage Start Date Coverage End Date COUNTS INCLUDE 234 [facility] AT [facility] [id number] [facility], [address] [place] [phone] [id number] GURPREET KIM Self - patient is the [...]
--- OUTSIDE RECORDS SUMMARY | 2024-07-04 10:34 | XMS_ITS ---
Author Organization [facility] Address [address] [place], [place] [address] [address] [address] Care Team Providers Care Passenger Brakeman Name Role Phone SHAYNA SOTELO N.P. Primary Care Provider MENDOZA Jarrett [phone] REASON FOR VISIT ? IUD REMOVAL Problems Problem Type SNOMED Code ICD Code Onset Dates Problem Status W/U Status Risk Notes Problem Stenosis of cervix (85510619) Stricture and stenosis of cervix uteri (N88.2) Active confirmed Encounters Encounter Location Date Provider Diagnosis [facility] [employer] [address] [address] 11/12/2023 MENDOZA RALPH Encounter for remova l [...] Reason: Provider Name:MENDOZA [place], 08/04/2024 10:30:00 AM, [address] [facility] [address], [place], [address], Progress Notes * GURPREET KIMDOB: 7 (48 yo F)Acc No.[id number]:11/12/2023 PROGRESS NOTES Patient:?KIMGURPREET Provider:?MENDOZA RALPH MD :1975???Age:48 Y???Sex:Female D ate:11/12/2023 Address: [address], [place], [id number] Pcp:SHAYNA SOTELO N.P. Subjective: * Chief Complaints: * ???1. ? IUD REMOVAL. * HPI: ???Constitutional:?Patient presents for IUD removal. She plans to [...] Other psychoactive substance abuse, in remission. * Appeals Analyst History:?/ Para?2/2.?Sexual activity?not currently sexually active.?Last Pap Smear:?2019.?Abnormal Pap Smear:?History of abnormal pap smears.?LMP and menses?Absent with Mirena.?History of STD's:?Yes.? Control:?Mirena intrauterine device.?Menarche?15.? * OB History:?Total pregnancies?2.?Total living children?2.?NVD?2.? # 1:?normal spontaneous vaginal delivery (), 04/29/2000, [place], 7lb 11oz, complicated by pre-eclampsia.? # 2:?normal spontaneous vaginal delivery (), 05/07/2002, Boo, 7lb 11oz, no complications.? Objective: * Vitals:? Assessment: * Assessment: 1.?Stricture and stenosis of cervix uteri - N88.2???2.?Encounter for removal of intrauterine contraceptive device - Z30.432 (Primary)??? Plan: * Treatment: * Procedures:?A speculum was placed in the vaginal so as to adequately expose the cervix. The IUD strings were grasped and the IUD removed without difficulty or incident. She tolerated the procedure well. ? * Procedure Codes:?57830 REMOV E INTRAUTERINE DEVICE * Follow Up:?prn * Images: Billing Information: * Visit Code:? * Procedure Codes:? 11533 REMOVE INTRAUTERINE DEVICE. * Electronic signature of MENDOZA RALPH MD on 07/04/2024 at 10:33 AM EDT Sign off status: Pending * Provider:?MENDOZA RALPH MD Date:?2023 Generated for Luis Alberto ramos/Toma/Christositting on:?07/04/2024 10:33 AM EDT History and Physical Notes * [...]
== END 2024-07-04 10:58 | disposition home or self-care (01) ==
LOC: HO.HCC 10:05
PROVIDERS: PCP Nurse Practitioner Family; Visit Provider Internal Medicine
DX: F11.99 Opioid use, unspecified with unspecified opioid-induced disorder (principal)
CPT/HCPCS: 99213

== ENCOUNTER → 2024-07-04 10:04 | Outpatient (BNVA) | payer OTHER, SELFPAY | PROVIDERS: PCP Nurse Practitioner Family; Visit Provider Internal Medicine | DX: F11.20 Opioid dependence, uncomplicated (principal); Z51.81 Encounter for therapeutic drug level monitoring | CPT/HCPCS: 99212 ==

== ENCOUNTER → 2024-07-07 13:32 | Outpatient (BNVA) | payer OTHER, SELFPAY | PROVIDERS: PCP Nurse Practitioner Family | DX: F11.99 Opioid use, unspecified with unspecified opioid-induced disorder (principal) | CPT/HCPCS: 96372; J0578 ==

== ENCOUNTER → 2024-07-07 13:32 | Outpatient (AMB) | payer OTHER, SELFPAY ==
--- NOTE | 2024-07-07 12:31 | AM.OFFVISNUR ---
Vital Signs 07/07/24 13:56 BP 118/78 Blood Pressure Location Lt brachial Position Sitting Pulse 76 Pulse Source Pulse Oximeter Pulse Oximetry (%) 98 Oxygen Delivery Method Room Air Intake Visit Reasons: Injection Allergies No Known Allergies [No Known Allergies*] Allergy (Verified 07/04/24 10:53) Nursing Note Jerilyn presents today for her scheduled Brixadi injection. She was due for the injection on Thursday however prior authorization needed to be obtained before the medication could be delivered. Jerilyn attended MAT provider appointment on 07/[address] Qiu. Jerilyn is alert and oriented x 4 and cooperative with care. She reports no issues with previous injections and reports mild breakthrough symptoms around week 3 after the injection. She reports occasional utilization of sublingual bridge script. Will discuss with the provider at the next visit. She is traveling to [facility] for her son?s graduation from [place] [employer] for [email or web address] and excited for the trip this weekend. Nurse appointment scheduled in 4 weeks for next injection. Office Meds buprenorphine 128 mg/0.36 mL solution,ext.rel.subcutaneous syringe Performing Provider: Rose Qiu MD Performing Location: [facility] Administered by: Gifty Castro RN on 07/07/24 13:42 Dose Route Admin Location Dispensed Lot Number Expiration Date [facility] Template Clerk [address] 0.36 mL [id number] 05/16/26 69036-191-06 [employer]. Comments: Pt here for Brixadi 128 mg injection. Pt denies any concern with previous injections and tolerated injection well. Educated on signs and symptoms of infection and encouraged to call [facility] with any related questions or concerns, pt verbalized understanding. Medication guide given per [facility] protocol. Follow-up scheduled in 4 weeks with nurse for next injection. Assessment & Plan Assessment & Plan Orders: Orders AMB Buprenorphine Injection - Patient Supplied Today F11.99 - Opioid use, unspecified with unspecified opioid-induced disorder Medications: New buprenorphine ER 128 mg (0.36 mL) subcut ONCE 0.36 mL 0RF F11.99 - Opioid use, unspecified with unspecified opioid-induced disorder Coding
--- OUTSIDE RECORDS SUMMARY | 2024-07-07 13:40 | XMS_ITS ---
Author Organization [facility] Address [address] [place] [address] Care Team Providers Care Gas Meter Mechanic Name Role Phone SHAYNA SOTELO N.P. Primary Care Provider MENDOZA Jarrett [phone] REASON FOR VISIT ? IUD REMOVAL Medications [...] Provider Diagnosis [facility] [place] [employer] [address] [address] 12/10/2023 MENDOZA RALPH Encounter for remova l [...] Reason: Provider Name:MENDOZA [place], 08/04/2024 10:30:00 AM, [address] [place] [address], [place], [address], Progress Notes * GURPREET KIMDOB: 7 (48 yo F)Acc No.[id number]:12/10/2023 PROGRESS NOTES Patient:GURPREET JOHNS Provider:?MENDOZA RALPH MD :1975???Age:48 Y???Sex:Female D ate:12/10/2023 Address:[place] [address], [place] Pcp:SHAYNA SOTELO N.P. Subjective: * Chief Complaints: [...] Other psychoactive substance abuse, in remission. * Systems Administrator History:?/ Para?2/2.?Sexual activity?not currently sexually active.?Last Pap [...] tolerated the procedure well. ? * Procedure Codes:?30854 REMOV E INTRAUTERINE DEVICE * Follow Up:?prn * Images: Billing Information: * Visit Code:? * Procedure Codes:? 94143 REMOVE INTRAUTERINE DEVICE. * Electronic signature of MENDOZA RALPH MD on 07/07/2024 at 01:40 PM EDT Sign off status: Pending * Provider:?MENDOZA RALPH MD Date:?2023 Generated for Luis Alberto ramos/Toma/Lyndseysmitting on:?07/07/2024 01:40 PM EDT
[2024-07-07 13:56] VITALS: BP 118/78; PULSE 76; O2SAT 98
== END ==
LOC: HO.HCC 13:32
PROVIDERS: PCP Nurse Practitioner Family
DX: F11.99 Opioid use, unspecified with unspecified opioid-induced disorder (principal)

== ENCOUNTER 2024-08-05 09:23 | Outpatient (AMB) | payer OTHER, SELFPAY ==
--- OUTSIDE RECORDS SUMMARY | 2023-12-10 06:20 | XMS_ITS ---
Author Organization [facility] Address [address] [place] [address] Care Team Providers Care Briquetting Machine Operator Name Role Phone SHAYNA SOTELO N.P. Primary Care Provider MENDOZA Jarrett [phone] REASON FOR VISIT ? IUD REMOVAL Medications Medication SIG (Take, Route, Frequency, Duration) Notes Start Date End Date Status traZODone HCl 50 MG 1 tablet at bedtime as needed Orally Once a day Active Brixadi 96 MG/0.27ML 0.27 mL Subcutaneous Active Topiramate 50 MG Oral for 30 Days Active buPROPion HCl ER (XL) 300 MG Oral for 30 Days Active Ibuprofen 600 MG TAKE 1 TABLET BY FRANKLYN TH EVERY 8 HOURS NEEDED FOR MODERATE PAIN Oral for 6 Days Active hydrOXYzine HCl 25 MG Oral for 30 Days Active Encounters Encounter Location Date Provider Diagnosis [facility] BERD [place] [address] [address] 12/10/2023 MENDOZA RALPH Encounter for remova l [...] Reason: Provider Name:MENDOZA Richter, 09/02/2024 10:00:00 AM, [address] [place] [address], [place], [address], Progress Notes * GURPREET KIMDOB: 7 (48 yo F)Acc No.[id number]:12/10/2023 PROGRESS NOTES Patient: GURPREET DEL ROSARIO Provider: Mohinder RALPH MD :1975 A ge:48 Y S ex:Female Date:12/10/2023 Address:[place] [address], [facility], [id number] Pcp:SHAYNA SOTELO N.P. Subjective: * Chief Complaints: [...] Other psychoactive substance abuse, in remission. * Motor Racer History: G ravida/ Para 2 /2. S [...] Information: * Visit Code: * Procedure Codes: 35946 REMOVE INTRAUTERINE DEVICE. * Electronic signature of MENDOZA RALPH MD on 08/05/2024 at 09:41 AM EDT Sign off status: Pending * Provider: Mohinder RALPH MD Date: 1 Generated for Luis Alberto ramos/Toma/Christositting on: 0 08/05/2024 09:41 AM EDT
--- NOTE | 2024-08-05 09:34 | A.OFFVIS_ITS ---
Vital Signs 08/05/24 09:39 Pulse 65 Pulse Source Pulse Oximeter Pulse Oximetry (%) 97 Oxygen Delivery Method Room Air Intake Visit Reasons: Injection Allergies No Known Allergies (No Known Allergies*) Allergy (Verified 08/05/24 09:39) [facility] Medical History Cocaine use disorder Opioid use disorder No known health problems Social History Patient Tobacco Use Status: Current everyday Tobacco user Cigarettes Per Day: 2 Years Smoked: 20 Physical Exam Vital Signs: Last Vital Signs Pulse 65 08/05/24 09:39 Pulse Ox 97 08/05/24 09:39 Oxygen Delivery Method Room Air 08/05/24 09:39 Office Meds Sublocade 300 mg/1.5 mL solution,extended release subcutaneous syringe Performing Provider: Rose Qiu MD Performing Location: [facility] Documented (not given) by: Rose Qiu MD on 08/05/24 12:19 Reason Not Given: No Longer Necessary buprenorphine 128 mg/0.36 mL solution,ext.rel.subcutaneous syringe Performing Provider: Rose Qiu MD Performing Location: [facility] Administered by: Rose Qiu MD on 08/05/24 12:19 Dose Route Admin Location Dispensed Lot Number Expiration Date NDC Spring Floor Service Worker 128 mg subcut left upper arm 0.36 mL [id number] 07/16/26 55540-117-78 [employer] Total Dispensed Waste 0.36 mL 0 % Results AMB Test Urine AMB Test Urine Negative Last Edit by Enoch Roa CMA on 08/05/24 09:39 Results Reviewed Results Reviewed: Laboratory Last Values [facility] Clinic Negative 08/05/24 09:34 Assessment & Plan Assessment & Plan (1) Opioid use disorder: Comment: She is doing well. Code(s): F11.99 - Opioid use, unspecified with unspecified opioid-induced disorder Category: Medical Orders: Orders AMB HCG Urine Test Today Z32.02 - Encounter for test, result negative AMB Buprenorphine Injection - Patient Supplied Today F11.99 - Opioid use, unspecified with unspecified opioid-induced disorder Coding Diagnoses Opioid use disorder F11.99
[2024-08-05 09:39] VITALS: PULSE 65; O2SAT 97
== END 2024-08-05 10:03 | disposition home or self-care (01) ==
LOC: HO.HCC 09:24
PROVIDERS: PCP Nurse Practitioner Family; Visit Provider Internal Medicine
DX: Z32.02 Encounter for pregnancy test, result negative (principal); F11.99 Opioid use, unspecified with unspecified opioid-induced disorder

== ENCOUNTER → 2024-08-05 09:23 | Outpatient (BNVA) | payer OTHER, SELFPAY | PROVIDERS: PCP Nurse Practitioner Family; Visit Provider Internal Medicine | DX: F11.20 Opioid dependence, uncomplicated (principal); F14.20 Cocaine dependence, uncomplicated; Z32.02 Encounter for pregnancy test, result negative; Z79.899 Other long term (current) drug therapy | CPT/HCPCS: 81025; 96372; 99212; J0578 ==

== ENCOUNTER 2024-08-22 13:54 | Outpatient (AMB) | payer OTHER, SELFPAY ==
--- OUTSIDE RECORDS SUMMARY | 2023-08-13 09:00 | XMS_ITS ---
Author Organization [facility] Address [address] [place], [place] [id number] Care Team Providers Care Ship Keeper Name Role Phone NO, PCP Primary Care Provider Debby Murphy Unavailable [phone] Kandice Sam Unavailable Encounters Encounter Location Date Provider Diagnosis [facility] [address] [place] [phone] 08/13/2023 Kandice Sam Plan Of Treatment No Information Progress Notes * Jerilyn KIMDOB: 7 (48 yo F)Acc No.[id number]:08/13/2023 Case Management Patient: Jerilyn DEL ROSARIO Provider: Tony Sam :1975 A ge:47 Y S ex:Female Date:08/13/2023 Address:[address] [place], [place] [phone] Pcp:PCP NO Subjective: * Chief Complaints: * * Medical History: Objective: Assessment: Plan: * Treatment: * Images: Billing Information: * Visit Code: * Procedure Codes: Care Plan Details* * Electronic signature of Crescencio Sam on 08/22/2024 at 02:19 PM EDT Sign off status: Pending * Provider: Tony Sam Date: 08/13/2023 Generated for Luis Alberto ramos/Toma/Rudy on: 08/22/2024 02:19 PM EDT
--- OUTSIDE RECORDS SUMMARY | 2023-12-10 06:20 | XMS_ITS ---
Author Organization [facility] [employer] [facility] Address [address] [facility] [address] [place] [address] Care Team Providers Care Choreography Director Name Role Phone SHAYNA SOTELO N.P. Primary Care Provider MENDOZA Jarrett [phone] REASON FOR VISIT ? IUD REMOVAL Medications [...] Active Encounters Encounter Location Date Provider Diagnosis [facility] [employer] [facility] [employer] [address] [address] 12/10/2023 MENDOZA RALPH Encounter for remova l [...] Next Appt Details Follow Up: prn, Reason: Provider Name:MENDOZA Richter, 09/02/2024 10:00:00 AM, [address] [facility] [address], [place], [address], Progress Notes * GURPREET KIMDOB: [birth year] (48 yo F)Acc No.[id number]:12/10/2023 PROGRESS NOTES Patient: GURPREET DEL ROSARIO Provider: Mohinder RALPH MD :1975 A ge:48 Y S ex:Female Date:12/10/2023 Address:[place] [address], [facility] Pcp:SHAYNA SOTELO N.P. Subjective: * Chief Complaints: [...] Other psychoactive substance abuse, in remission. * Regional Airline Pilot History: G ravida/ Para 2 /2. S [...] Information: * Visit Code: * Procedure Codes: 36978 REMOVE INTRAUTERINE DEVICE. * Electronic signature of MENDOZA RALPH MD on 08/22/2024 at 02:19 PM EDT Sign off status: Pending * Provider: Mohinder RALPH MD Date: Generated for Luis Alberto ramos/Toma/Rudy on: 08/22/2024 02:19 PM EDT
[2024-08-22 14:55] VITALS: BP 117/79; O2SAT 99
--- NOTE | 2024-08-22 14:55 | A.OFFVISCC_ITS ---
Vital Signs 08/22/24 14:55 BP 117/79 Blood Pressure Location Lt brachial Position Sitting Pulse Source Pulse Oximeter Pulse Oximetry (%) 99 Oxygen Delivery Method Room Air Intake Visit Reasons: Mat Allergies No Known Allergies (No Known Allergies*) Allergy (Verified 08/05/24 09:39) HPI HPI Mat: Details: She feels that the Brixadi is not working that well for her and that half way through the month seems to wear off. She doesnt get cravings or use but doesnt feel well with jitteriness and fatigue . Review of Systems Const All systems reviewed & are unremarkable except as noted in HPI and below Physical Exam Vital Signs: Last Vital Signs BP 117/79 08/22/24 14:55 Pulse Ox 99 08/22/24 14:55 Oxygen Delivery Method Room Air 08/22/24 14:55 Const General: cooperative [facility] Medical History Cocaine use disorder Opioid use disorder No known health problems Social History Patient Tobacco Use Status: Current everyday Tobacco user Cigarettes Per Day: 2 Years Smoked: 20 Assessment & Plan Assessment & Plan (1) Opioid use disorder: Comment: Unfortunately Brixadi isnt working well for her. This is a call-in MAT appointment. Code(s): F11.99 - Opioid use, unspecified with unspecified opioid-induced disorder Category: Medical Plan: Would give Suboxone strips and switch to Sublocade,start with 300 mg. Did give three week strips but will see her when Sublocade here. Medications: New buprenorphine-naloxone 8-2 mg (Suboxone) 1 film sublingual BID 42 ea 0RF 21 days buprenorphine ER (Sublocade) 300 mg (1.5 mL) subcut .monthly 1.5 mL 1RF buprenorphine ER (Sublocade) 300 mg (1.5 mL) subcut .monthly 1.5 mL 1RF 2 doses
== END 2024-08-22 14:56 | disposition home or self-care (01) ==
LOC: HO.HCC 13:54
PROVIDERS: PCP Nurse Practitioner Family; Visit Provider Internal Medicine
DX: F11.99 Opioid use, unspecified with unspecified opioid-induced disorder (principal)
CPT/HCPCS: 99213

== ENCOUNTER → 2024-08-22 13:54 | Outpatient (BNVA) | payer OTHER, SELFPAY | PROVIDERS: PCP Nurse Practitioner Family; Visit Provider Internal Medicine | DX: F11.20 Opioid dependence, uncomplicated (principal); F14.20 Cocaine dependence, uncomplicated; Z79.899 Other long term (current) drug therapy | CPT/HCPCS: 99212 ==

== ENCOUNTER 2024-09-12 13:30 | Outpatient (AMB) | payer OTHER, SELFPAY ==
--- OUTSIDE RECORDS SUMMARY | 2023-08-13 09:00 | XMS_ITS ---
Author Organization [facility] Address [address], [place] [id number] Care Team Providers Care Manager Athletics Name Role Phone NO, PCP Primary Care Provider Debby Murphy Unavailable [phone] Kandice Sam Unavailable Encounters Encounter Location Date Provider Diagnosis [facility] [address] [place] [phone] 08/13/2023 Kandice Sam Plan Of Treatment No Information Progress Notes * Jerilyn NORTONDOB: 7 (48 yo F)Acc No.[id number]:08/13/2023 Case Management Patient: Jerilyn DEL ROSARIO Provider: Tony Sam :1975 A ge:47 Y S ex:Female Date:08/13/2023 Address:[address] [place], [place] [phone] Pcp:PCP NO Subjective: * Chief Complaints: * * Medical History: Objective: Assessment: Plan: * Treatment: * Images: Billing Information: * Visit Code: * Procedure Codes: Care Plan Details* * Electronic signature of Crescencio Sam on 09/12/2024 at 02:11 PM EDT Sign off status: Pending * Provider: Tony Sam Date: 08/13/2023 Generated for Luis Alberto ramos/Toma/Rudy on: 09/12/2024 02:11 PM EDT
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
--- NOTE | 2024-09-12 13:43 | AM.OFFVISNUR ---
Vital Signs 09/12/24 13:46 Weight 68.039 kg BP 112/68 Pulse 66 Pulse Oximetry (%) 98 Intake Visit Reasons: injection/Sublocade Allergies No Known Allergies (No Known Allergies*) Allergy (Verified 08/05/24 09:39) Nursing Note Jerilyn is here for her first Sublocade 300 mg, she is transitioning from Brixadi due to feeling like it is not fully covering her symptoms. Jerilyn is alert, oriented, calm and cooperative with care. She has had 1 Sublocade in the past and was re-educated as to the progression of treatment concerning the dose reduction after the first two injections if feeling stable. She has films available to bridge if neededl though she was unsure how many. 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 Appointment in 4 weeks for next injection. Office Meds Sublocade 300 mg/1.5 mL solution,extended release subcutaneous syringe Performing Provider: Rose Qiu MD Performing Location: [facility] Administered by: Gifty Castro RN on 09/12/24 14:18 Dose Route Admin Location Dispensed Lot Number Expiration Date [facility] Field Director 300 mg subcut LLQ 1.5 mL [id number] 06/15/25 [address]-7 [employer] Total Dispensed Waste 1.5 mL 0 % Comments: Pt here for first Sublocade 300 mg injection after transitioning from Brixadi due to inefficient symptom management, has had one in the past. Pt denies any concern with previous injection and tolerated injection well. Educated on signs and symptoms of infection and encouraged to call [facility] with any related questions or concerns, pt verbalized understanding. Follow-up scheduled in 4 weeks for next injection. Assessment & Plan Assessment & Plan Orders: Orders AMB Buprenorphine Injection - Patient Supplied Today F11.99 - Opioid use, unspecified with unspecified opioid-induced disorder Coding
[2024-09-12 13:46] VITALS: BP 112/68; PULSE 66; O2SAT 98
== END 2024-09-12 14:11 | disposition home or self-care (01) ==
PROVIDERS: PCP Nurse Practitioner Family
DX: F11.99 Opioid use, unspecified with unspecified opioid-induced disorder (principal)

== ENCOUNTER → 2024-09-12 13:30 | Outpatient (BNVA) | payer OTHER, SELFPAY | PROVIDERS: PCP Nurse Practitioner Family; Visit Provider Internal Medicine | DX: F11.99 Opioid use, unspecified with unspecified opioid-induced disorder (principal) | CPT/HCPCS: 96372; Q9992 ==

== ENCOUNTER 2024-10-10 09:35 | Outpatient (AMB) | payer OTHER, SELFPAY ==
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
--- NOTE | 2024-10-10 09:42 | AM.OFFVISNUR ---
Vital Signs 10/10/24 09:46 BP 110/70 Pulse 68 Pulse Oximetry (%) 98 Intake Visit Reasons: injection Allergies No Known Allergies (No Known Allergies*) Allergy (Verified 10/10/24 09:46) Nursing Note Jerilyn presents for her 4 week Sublocade injection. She is alert, oriented and cooperative with care. Jerilyn reports some symptoms the past week and has utilized 6 films over the past 5 days. This is her second 300 mg injection, was previously on Brixadi however did not experience suffiecient symptom relief; will continue on 300 mg dose until therapeutic and not needing to bridge prior to injection. Jerilyn attends weekly therapy visits and is active in AA, is working on the fourth step and has a sponser. She is excited and anxious about starting her new job on October 31. follow up in 4 weeks for next injection. Office Meds Sublocade 300 mg/1.5 mL solution,extended release subcutaneous syringe Performing Provider: Rose Qiu MD Performing Location: [facility] Administered by: Gifty Castro RN on 10/10/24 10:10 Dose Route Admin Location Dispensed Lot Number Expiration Date [facility] Malt House Kiln Operator 300 mg subcut LUQ 1.5 mL [id number] 06/15/25 [address]-8 [employer] Total Dispensed Waste 1.5 mL 0 % Comments: Pt is present for Sublocade 300 mg injection. Pt denies any concern with previous injection and tolerated injection well. Educated on signs and symptoms of infection and encouraged to call [facility] with any related questions or concerns, pt verbalized understanding. Follow-up scheduled in 4 weeks for next injection. Assessment & Plan Assessment & Plan Orders: Orders AMB Buprenorphine Injection - Patient Supplied Today F11.21 - Opioid dependence, in remission Coding
[2024-10-10 09:46] VITALS: BP 110/70; PULSE 68; O2SAT 98
--- OUTSIDE RECORDS SUMMARY | 2024-10-10 10:25 | XMS_ITS | Clinical Summary ---
Author Organization [facility] Topic Address [address] [place] [address] Care Team Providers Care Firewood Cutter Name Role Phone Brian Vidal Primary Care [...] 61 05/05/2023 4:19 PM EDT Temperature 36.8 C (98.2 F) 05/05/2023 4:19 PM EDT Respiratory Rate 16 05/05/2023 4:19 PM EDT [...] Adults 18 yrs or above (or HM Modifier)([facility]) 1994 Hepatitis C Virus Infection in Adolescents and Adults: Screening (or Modifier) ([facility]) 1994 [facility] Screening Reminder: Shantel kelsey for all adults ([facility]) 1994 DTaP/Tdap/Td Vaccines ([facility]) (1 - Tdap) 10/13/1995 Cervical Cancer Screenin 1-65 yrs of age (or Modifier) 1997 Cervical Cancer Screening: P ap every 3 yrs pts age 21-65 1997 Cervical Cancer: Pap Screeni ng with Modifier timing ([facility]) 1997 Cervical Cancer: hrHPV alone or with cotesting Pap for Pts 30-65yrs screening every 5yrs ([facility]) 1997 Colorectal Cancer Screening 45 -75 Yrs (or HM Modifier) 2021 Colorectal Cancer: FLEXIBLE SIGMOIDOSCOPY Screening every 5 yrs 2021 Colorectal Cancer: Fecal Immunochemical Test (FIT) Annually [facility] 2021 Colorectal Cancer: High-sens itivity gFOBT Screening Annually [facility] 2021 Colorectal Cancer: Stool Col oguard Screening every 3 yrs 2021 Colorectal Cancer:CT Colonog paige Screening every 5 yrs 2021 COVID-19 Vaccine Screening: Initial Series and Booster Status ([facility]) (2023- season) 2023 Tobacco Smoking Cessation: i n Adults excluding Women: Behavioral and Pharmacotherapy Interventions ([facility]) 05/04/2024 05/05/2023 Flu Vaccination: Yearly for ages 18mos through 64 years (or Modifier)([facility]) 09/16/2024 Zoster/Shingles Vaccine Seri es Screening: Adults aged 18+ yrs (or HM Modifiers)([facility]) (1 of 2) 2026 Pneumococcal Vaccination Scr eening: Pts 0-19 & 19-49 yrs of age ([facility]) Aged Out No longer eligible b ased on patient's age to complete this topic Medical Devices Not on file Insurance [place] Care Teams Firewood Cutter Relationship Specialty Start Date End Date Brian Vidal DO [address] [place] [phone] PCP - General Internal Medicine 05/05/23
== END 2024-10-10 10:24 | disposition home or self-care (01) ==
LOC: HO.HCC 09:35
PROVIDERS: PCP Nurse Practitioner Family; Visit Provider Internal Medicine
DX: F11.21 Opioid dependence, in remission (principal)

== ENCOUNTER → 2024-10-10 09:35 | Outpatient (BNVA) | payer OTHER, SELFPAY | PROVIDERS: PCP Nurse Practitioner Family; Visit Provider Internal Medicine | DX: F11.21 Opioid dependence, in remission (principal) | CPT/HCPCS: 96372; Q9992 ==

== ENCOUNTER 2024-11-09 09:31 | Outpatient (AMB) | payer OTHER, SELFPAY ==
--- OUTSIDE RECORDS SUMMARY | 2023-08-13 09:00 | XMS_ITS ---
Author Organization [facility] Address [address] [place] [address] Care Team Providers Care Refrigerator Glazier Name Role Phone NO, PCP Primary Care Provider [phone] Debby Murphy Unavailable [phone] Kandice Sam Unavailable Encounters Encounter Location Date Provider Diagnosis [facility] [address] [place] [phone] 08/13/2023 Kandice Sam Plan Of Treatment No Information Progress Notes * Jerilyn NORTONDOB: 7 (49 yo F)Acc No.[id number]:08/13/2023 Case Management Patient: Jerilyn DEL ROSARIO Provider: Tony Sam :1975 A ge:47 Y S ex:Female Date:08/13/2023 Address:[address] [place], [place] [phone] Pcp:PCP NO Subjective: * Chief Complaints: * * Medical History: Objective: Assessment: Plan: * Treatment: * Images: Billing Information: * Visit Code: * Procedure Codes: Care Plan Details* * Electronic signature of Crescencio Sam on 11/09/2024 at 11:23 AM EDT Sign off status: Pending * Provider: Tony Sam Date: 08/13/2023 Generated for Luis Alberto ramos/Toma/Rudy on: 11/09/2024 11:23 AM EDT
--- OUTSIDE RECORDS SUMMARY | 2023-12-10 06:20 | XMS_ITS ---
Author Organization [facility] [employer] [facility] Address [address] [address] Care Team Providers Care Medical Administrative Assistant Name Role Phone SHAYNA SOTELO N.P. Primary Care Provider MENDOZA Jarrett Unavailable [phone] REASON FOR VISIT ? IUD REMOVAL Medications [...] Encounter Location Date Provider Diagnosis [facility] [employer] [address] [address] 12/10/2023 MENDOZA RALPH Encounter for remova l [...] * GURPREET KIMDOB: [birth year] (49 yo F)Acc No.[id number]:12/10/2023 PROGRESS NOTES Patient: Briana MaryBETSY GURPREET Provider: Mohinder RALPH MD :1975 A ge:48 Y S ex:Female Date:12/10/2023 Address:[place] [address], [place], [id number] Pcp:SHAYNA SOTELO N.P. Subjective: * Chief Complaints: [...] Other psychoactive substance abuse, in remission. * Real Estate Analyst History: G ravida/ Para 2 /2. S [...] Information: * Visit Code: * Procedure Codes: 56567 REMOVE INTRAUTERINE DEVICE. * Electronic signature of MENDOZA RALPH MD on 11/09/2024 at 11:24 AM EDT Sign off status: Pending * Provider: Mohinder RALPH MD Date: Generated for Luis Alberto ramos/Toma/Christositting on: 0 11/09/2024 11:24 AM EDT
--- OUTSIDE RECORDS SUMMARY | 2024-08-04 06:30 | XMS_ITS ---
Author Organization [facility] Address [address] [address] Care Team Providers Care Waste Oil Pumper Name Role Phone SHAYNA SOTELO N.P. Primary Care Provider MENDOZA Jarrett Unavailable [phone] REASON FOR VISIT Annual REHAB CONSULTANT Physical Encounters Encounter Location Date Provider Diagnosis [facility] [address] [address] 08/04/2024 MENDOZA RALPH Encounter for gynecological examination [...] Follow Up: 1 Year, Reason: Y early Gravity Prospecting Operator Helper Exam Progress Notes * GURPREET KIMDOB: [birth year] (49 yo F)Acc No.[id number]:08/04/2024 PROGRESS NOTES Patient: GURPREET DEL ROSARIO Provider: Mohinder RALPH MD :1975 A ge:48 Y S ex:Female Date:08/04/2024 Address:[place] [address], [place] , [id number] Pcp:SHAYNA SOTELO N.P. Subjective: * Chief Complaints: * 1 . Annual REHAB CONSULTANT Physical. * HPI: C onstitutional: Gurpreet is a 48yo with amenorrhea on Mirena who presents for her yearly piano accompanist exam. She has been in state of [...] does *not exercise. * ROS: A nnual Gravity Prospecting Operator Helper Exam ROS: Bowel habit changes d enies. [...] no acute distress, well developed, well nourished, corporate financial analyst present in room. HEAD: n ormocephalic, atraumatic. [...] * Follow Up: 1 Year (Reason: Yearly Gravity Prospecting Operator Helper Exam) * Images: Billing Information: * Visit Code: 79561 Preventive Care Est Pt. Age 40-64. * Procedure Codes: * Electronic signature of MENDOZA RALPH MD on 11/09/2024 at 11:24 AM EDT Sign off status: Pending * Provider: Mohinder RALPH MD Date: 0 08/04/2024 Generated for [employer] rachel/Toma/eTransmitting on: 0 11/09/2024 11:24 AM EDT History and Physical Notes * HPI (History of Present Illness) Category Sub-Category Detail Notes Category Not es Constitutional Gurpreet is a 48yo with amenorrhea on Mirena who presents for her yearly piano accompanist exam. She has been in state of [...] ac octav[place] distress, well developed, well nourished, corporate financial analyst present in room HEAD: normocephalic, atrau matic [...]
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
--- OUTSIDE RECORDS SUMMARY | 2024-09-27 04:20 | XMS_ITS ---
Author Organization [facility] Address [address] [address] Care Team Providers Care Hasher Machine Operator Name Role Phone SHAYNA SOTELO N.P. Primary Care Provider MENDOZA Jarrett Unavailable [phone] REASON FOR VISIT Annual SHOE DRESSER Physical Encounters Encounter Location Date Provider Diagnosis [facility] [address] [address] 09/27/2024 MENDOZA RALPH Encounter for gynecological examination [...] Follow Up: 1 Year, Reason: Y early Baby Registry Sales Consultant Exam Progress Notes * GURPREET KIMDOB: [birth year] (49 yo F)Acc No.[id number]:09/27/2024 PROGRESS NOTES Patient: GURPREET DEL ROSARIO Provider: Mohinder RALPH MD :1975 A ge:48 Y S ex:Female Date:09/27/2024 Address:[place] [address], [place] , [id number] Pcp:SHAYNA SOTELO N.P. Subjective: * Chief Complaints: * 1 . Annual SHOE DRESSER Physical. 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 She has been in state of [...] does *not exercise. * ROS: A nnual Baby Registry Sales Consultant Exam ROS: Bowel habit changes d enies. [...] no acute distress, well developed, well nourished, tin dipper present in room. HEAD: n ormocephalic, atraumatic. [...] * Follow Up: 1 Year (Reason: Yearly Baby Registry Sales Consultant Exam) * Images: Billing Information: * Visit Code: 77442 Preventive Care Est Pt. Age 40-64. * Procedure Codes: * Electronic signature of MENDOZA RALPH MD on 11/09/2024 at 11:23 AM EDT Sign off status: Pending * Provider: Mohinder RALPH MD Date: 0 09/27/2024 Generated for [employer] rachel/Toma/eTransmitting on: 0 11/09/2024 11:23 AM EDT History and Physical Notes * HPI (History of Present Illness) Category Sub-Category Detail Notes Category Not es Constitutional Gurpreet is a 48yo with amenorrhea on Mirena who presents for her yearly investment consultant exam. She has been in state of [...] ac octavio distress, well developed, well nourished, tin dipper present in room HEAD: normocephalic, atrau matic [...]
--- NOTE | 2024-11-09 09:58 | AM.OFFVISNUR ---
Vital Signs 11/09/24 10:05 BP 120/78 Pulse 78 Pulse Oximetry (%) 98 Intake Visit Reasons: Injection Allergies No Known Allergies (No Known Allergies*) Allergy (Verified 11/09/24 10:06) Nursing Note Jerilyn presents today for Sublocade 300 mg injection; she is alert, oriented, cooperative and presents as slightly fatigued and yawning but otherwise appropriate affect. She identified utilizing SL strips over the past 5 days, none today. Jerilyn reports some small issues with her new job that has delayed the start date but is scheduled to begin on Tuesday 11/14. Jerilyn reports chronic issues sleeping- waking frequently, for snacks, bathroom, etc., spoke briefly about sleep hygeine, will email her some literature. Follow up in 4 weeks for next injection. Office Meds Sublocade 300 mg/1.5 mL solution,extended release subcutaneous syringe Performing Provider: Rose Qiu MD Performing Location: [facility] Administered by: Gifty Castro RN on 11/09/24 11:11 Dose Route Admin Location Dispensed Lot Number Expiration Date [facility] Preservationist 300 mg subcut RLQ 1.5 mL [id number] 06/15/25 [address]-9 [employer] Total Dispensed Waste 1.5 mL 0 % Comments: Pt is present for Sublocade 300 mg injection. Pt denies any concern with previous injection and tolerated injection well. Educated on signs and symptoms of infection and encouraged to call [facility] with any related questions or concerns, pt verbalized understanding. Follow-up scheduled in 4 weeks for next injection. Assessment & Plan Assessment & Plan Orders: Orders AMB Buprenorphine Injection - Patient Supplied Today F11.21 - Opioid dependence, in remission Coding
[2024-11-09 10:05] VITALS: BP 120/78; PULSE 78; O2SAT 98
--- OUTSIDE RECORDS SUMMARY | 2024-11-09 11:23 | XMS_ITS | Clinical Summary ---
Author Organization [facility] [employer] Address [address] [place] [address] Care Team Providers Care Coal Tower Operator Name Role Phone Brian Vidal Primary Care Provider [phone] Allergies No known active allergies Medications amoxicillin [...] Adults 18 yrs or above (or HM Modifier)([facility]) 1994 Hepatitis C Virus Infection in Adolescents and Adults: Screening (or Modifier) ([facility]) 1994 [facility] Screening Reminder: Shantel kelsey for all adults ([facility]) 1994 DTaP/Tdap/Td Vaccines ([facility]) (1 - Tdap) 10/13/1995 Cervical Cancer Screenin 1-65 yrs of age (or Modifier) 1997 Cervical Cancer Screening: P ap every 3 yrs pts age 21-65 1997 Cervical Cancer: Pap Screeni ng with Modifier timing ([facility]) 1997 Cervical Cancer: hrHPV alone or with cotesting Pap for Pts 30-65yrs screening every 5yrs ([facility]) 1997 Colorectal Cancer Screening 45 -75 Yrs (or HM Modifier) 2021 Colorectal Cancer: FLEXIBLE SIGMOIDOSCOPY Screening every 5 yrs 2021 Colorectal Cancer: Fecal Immunochemical Test (FIT) Annually [facility] 2021 Colorectal Cancer: High-sens itivity gFOBT Screening Annually [facility] 2021 Colorectal Cancer: Stool Col oguard Screening every 3 yrs 2021 Colorectal Cancer:CT Colonog paige Screening every 5 yrs 2021 Tobacco Smoking Cessation: i n Adults excluding Women: Behavioral and Pharmacotherapy Interventions ([facility]) 05/04/2024 05/05/2023 Flu Vaccination: Yearly for ages 18mos through 64 years (or Modifier)([facility]) 09/16/2024 COVID-19 Vaccine Screening: Initial Series and Booster Status ([facility]) ( season) 2024 Zoster/Shingles Vaccine Seri es Screening: Adults aged 18+ yrs (or HM Modifiers)([facility]) (1 of 2) 2026 Pneumococcal Vaccination Scr eening: Pts 0-19 & 19-49 yrs of age ([facility]) Aged Out No longer eligible b ased on patient's age to complete this topic Medical Devices Not on file Insurance [place] Care Teams Coal Tower Operator Relationship Specialty Start Date End Date Brian Vidal DO [address] [place] [phone] PCP - General Internal Medicine 05/05/23
--- OUTSIDE RECORDS SUMMARY | 2024-11-09 11:24 | XMS_ITS | Patient Health Record ---
Author Organization [facility] Address [address] [facility] [address] [place] [address] Care Team Providers Care Intermediate Project Manager Name Role Phone SHAYNA SOTELO N.P. Primary Care Provider Unavaila MENDOZA Grider Unavailable [phone] Allergies No Known Allergies Reason For Referral No Information Medications Medication SIG (Take, Route, Frequency, Duration) Notes Start Date End Date Status Ibuprofen 600 MG TAKE 1 TABLET BY FRANKLYN TH EVERY 8 HOURS NEEDED FOR MODERATE PAIN Oral; Duration: 6 Days Active buPROPion HCl ER (XL) 300 MG Oral; Duration: 30 Days Acti ve hydrOXYzine HCl 25 MG Oral; Duration: 30 Days Active Topiramate 50 MG Oral; Duration: 30 Days Active traZODone HCl 50 MG 1 tablet at bedtime as needed Orally Once a day Not-Salty ing Brixadi 96 MG/0.27ML 0.27 mL Subcutaneous Active busPIRone HCl 10 MG 1 tablet Orally Twic e a day Active Social History Tobacco Use: Social History Observation [...] test positive, high risk on vaginal specimen (066922855089285) Cervical high risk human papillomavirus (HPV) DNA test positive (R87.810) Active confirmed Problem Stenosis of cervix (52549832) Stricture and stenosis of cervix uteri (N88.2) Active confirmed Problem Essential hypertension (61151949) Essential (primary) hypertension (I10) Active confirmed Problem Major depression, single episode (12906172) Major depressive disorder, single episode, unspecified (F32.9) Active confirmed Problem Generalized anxiety disorder (20523226) Generalized anxiety disorder (F41.1) Active confirmed Problem History of novel psychoactive substance misuse (situation) (437965989) Other psychoactive substance abuse, 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 confirmed Problem COVID-19 (100870240) COVID-19 (U07.1) Active confirmed Vital Signs Temperature 98.0 degrees Fahrenheit 12/18/2023 Blood pressure diastolic 68 mm Hg 12/18/2023 Height 65 in 12/18/2023 Blood pressure systolic 102 mm Hg 12/18/2023 Weight 139 lbs 12/18/2023 BMI 23.13 kg/m2 12/18/2023 Encounters Encounter Location Date Provider Diagnosis [address] [address] 09/27/2024 MENDOZA RALPH Encounter for gynecological examination (general) (routine) without abnormal findings Z01.419 ; Encounter for screening mammogram for malignant neoplasm of breast Z12.31 and Encounter for screening for infections with a predominantly sexual mode of transmission Z11.[address] [address] 12/18/2023 MENDOZA RALPH Encounter for remova l of intrauterine contraceptive device Z30.[address] [address] 12/18/2023 MENDOZA RALPH Assessments Encounter Date Diagnosis [...] in place. Will refer for surgical consult. 09/27/2024 Encounter for gynecological examination (general) (routine) [...] transmission (ICD-10 - Z11.3) Plan Of Treatment Pending Test Test Name Order Date ULTRASOUND: PELVIC W/TRANSVAGINAL 2023 MM Digital Screening Mammogram 3D 2024 MM Digital Screening Mammogram 3D 2023 Insurance Providers Payer Name Payer Address Payer Phone Subscriber Number Group Number Insured Name Patient Relationship to Insured Coverage Start Date Coverage End Date [facility] [id number] [facility] [address] [place] [phone] [id number] GURPREET KIM Self - patient is the insured Medical (General) History Medical History History ICD Code Major depressive disorder, single episod e, unspecified F32.9 Essential (primary) hypertension I10 COVID-19 U07.1 Generalized anxiety disorder F41.1 Other psychoactive substance abuse, in r emission F19.11 Cervical high risk human papillomavirus (HPV) DNA test positive R87.810 Stricture and stenosis of cervix uteri N 88.2 Displacement of intrauterine contracepti ve device, initial encounter T83.32XA Surgical History Surgery Date(Month/Year) Laparoscopic Cholecystectomy 05/2023 Umbilical hernia repair with mesh Hospitalization History Reason Date(Month/Year) childbirth
--- OUTSIDE RECORDS SUMMARY | 2024-11-09 11:24 | XMS_ITS | Patient Health Record ---
Author Organization [facility] Address [address] [place] [address] Care Team Providers Care Manager Hospital Name Role Phone NO, PCP Primary Care Provider [phone] Guardado Unavailable [phone] Kandice Sam Unavailable Reason For Referral No Information Encounters Encounter Location Date Provider Diagnosis [facility] [address], [place] [phone] 11/10/2023 Kandice Sam Plan Of Treatment No Information Insurance Providers Payer Name Payer Address Payer Phone Subscriber Number Group Number Insured Name Patient Relationship to Insured Coverage Start Date Coverage End Date [place] [address] [place] [address] [id number] Jerilyn Norton Self - patient is the insured 4 [facility] [address] [place] [address] [phone] [id number] Jerilyn Norton Self - patient is the insured 4
== END 2024-11-09 10:17 | disposition home or self-care (01) ==
LOC: HO.HCC 09:31
PROVIDERS: PCP Nurse Practitioner Family
DX: F11.21 Opioid dependence, in remission (principal)

== ENCOUNTER → 2024-11-09 09:31 | Outpatient (BNVA) | payer OTHER, SELFPAY | PROVIDERS: PCP Nurse Practitioner Family | DX: F11.21 Opioid dependence, in remission (principal) | CPT/HCPCS: 96372; Q9992 ==

== ENCOUNTER 2024-12-06 09:07 | Outpatient (AMB) | payer OTHER, SELFPAY ==
--- OUTSIDE RECORDS SUMMARY | 2023-07-23 05:30 | XMS_ITS ---
Author Organization [facility] Address [address] [address] Care Team Providers Care Phlebotomy Lab Assistant Name Role Phone SHAYNA SOTELO N.P. 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 Physical Encounters Encounter Location Date Provider Diagnosis [facility] [address] [address] 07/23/2023 MENDOZA RALPH Encounter for gynecological examination (general) (routine) without abnormal findings Z01.419 ; Encounter for screening mammogram for malignant neoplasm of breast Z12.31 and Encounter for screening for infections with a predominantly sexual mode of transmission Z11.3 Assessments Encounter Date Diagnosis (ICD Code) Assessment Notes Treatment Notes Treatment Clinical Notes Section Notes 07/23/2023 Encounter for gynecological examination (general) (routine) without abnormal findings (ICD-10 - Z01.419) Discussed cervical cancer screening with either cytology alone every 3 years or high risk HPV co-testing every 5 years as per ASCCP guidelines. Advised continued annual pelvic exams. Patient encouraged to increase her level of exercise. SBE technique encouraged/tau ght. Patient reminded when annual mammogram is due. 07/23/2023 Encounter for screening mammogram for malignant neoplasm of breast (ICD-10 - Z12.31) 07/23/2023 Encounter for screening for infections with a predominantly sexual mode of transmission (ICD-10 - Z11.3) Plan Of Treatment Treatment Notes Assessment Notes Encounter for gynecological examination (general) (routine) without abnormal findings Discussed cervical cancer screening with either cytology alone every 3 years or high risk HPV co-testing every 5 years as per ASCCP guidelines. Advised continued annual pelvic exams. Patient encouraged to increase her level of exercise. SBE technique encouraged/taught. Patient reminded when annual mammogram is due. Pending Test Test Name Order Date MM Digital Screening Mammogram 3D 2023 Next Appt Details Follow Up: 1 Year, Reason: Y early Transmission Supervisor Exam Progress Notes * GURPREET KIMDOB: 7 (49 yo F)Acc No.[id number]:07/23/2023 Progress Note Patient: GURPREET DEL ROSARIO Provider: Mohinder RALPH MD :1975 A ge:47 Y S ex:Female Date:07/23/2023 Address:[place] [address], [facility], [id number] Pcp:SHAYNA SOTELO N.P. Subjective: * Chief Complaints: * 1 . 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 She is new to this practice, having received previous content curator care . She has been in state of health since her last exam. She had her gallbladder removed 05/20/23. She has the following concerns: . She has received the Covid-19 vaccine. Relationship status: for years. She is sexually active. Sexual partner(s): male. She does wish to have STI testing. Menses: Contraception: She does report vaginal dryness. She does have hot flashes/night sweats. The patient has had an abnormal pap smear within the last 5 years. Her most recent pap smear was . She has been diagnosed with breast cancer. She does have a family history of breast cancer. Her last mammogram was . The patient does exercise. She exercises x days/week by . * ROS: A nnual Transmission Supervisor Exam ROS: Bowel habit changes d enies. B ladder symptoms d enies. V aginal discharge, unusual d enies. V aginal itch or odor d enies. w eight or appetite changes d enies. C hest pains, SOB d enies. d epression d enies.? B reast: Denies B reast lump. D enies N ipple discharge.? H ematology: Denies S wollen glands. S kin: Patient denies c hanging moles. P sychiatric: Denies A nxiety. * Medical History: Objective: * Vitals: * Examination: G eneral Examination: GENERAL APPEARANCE: i n no acute distress, well developed, well nourished, dry chain offbearer present in room. HEAD: n ormocephalic, atraumatic. NECK/THYROID: n judy supple, full range of motion, thyroid normal. LYMPH NODES: n o axillary or supraclavicular adenopathy.? SKIN: normal, good turgor, no rashes, no suspicious lesions. BREASTS: normal, no dimpling, no discharge, no drainage, no masses palpable bilaterally, nontender. ABDOMEN: soft, non-tender, non distended without masses or hepatosplenomegay. RECTAL: normal tone, no masses palpable. BACK: no costovertebral angle tenderness. FEMALE GENITOURINARY: V ulva without lesions or masses, vagina pink without abnormal discharge, lesions or masses, cervix appears normal and is not tender to palpation, uterus is normal size, mobile, nontender and anteverted, ovaries are not palpable. NEUROLOGIC: alert and oriented, gait normal. PSYCH: alert, oriented, cognitive function intact, cooperative with exam, good eye contact, mood/affect full range, speech clear. Assessment: * Assessment: 1. E ncounter for gynecological examination (general) (routine) without abnormal findings - Z01.419 (Primary) 2 . E ncounter for screening mammogram for malignant neoplasm of breast - Z12.31 3 . E ncounter for screening for infections with a predominantly sexual mode of transmission - Z11.3 Plan: * Treatment: 2. E ncounter for screening mammogram for malignant neoplasm of breast I maging: MM Digital Screening Mammogram 3D * Follow Up: 1 Year (Reason: Yearly Transmission Supervisor Exam) * Images: Billing Information: * Visit Code: 52894 Preventive Care New Pt. Age 40-64. 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 She is new to this practice, having received previous content curator care . She has been in state of health since her last exam. She had her gallbladder removed 05/20/23. She has the following concerns: . She has received the Covid-19 vaccine. Relationship status: for years. She is sexually active. Sexual partner(s): male. She does wish to have STI testing. Menses: Contraception: She does report vaginal dryness. She does have hot flashes/night sweats. The patient has had an abnormal pap smear within the last 5 years. Her most recent pap smear was . She has been diagnosed with breast cancer. She does have a family history of breast cancer. Her last mammogram was . The patient does exercise. She exercises x days/week by . Examination Category Sub-Category Detail Notes Category Not es General Examination GENERAL APPEARANCE: in no ac octavio distress, well developed, well nourished, dry chain offbearer present in room HEAD: normocephalic, atrau matic NECK/THYROID: neck supple, full ra nge of motion, thyroid normal ABDOMEN: soft, non-tender, no n distended without masses or hepatosplenomegay NEUROLOGIC: alert and oriented, gait normal SKIN: normal, good turgor, no rashes, no suspicious lesions BACK: no costovertebral an gle tenderness BREASTS: normal, no dimpling, no discharge, no drainage, no masses palpable bilaterally, nontender LYMPH NODES: no axillary or supra clavicular adenopathy RECTAL: normal tone, no mass es palpable PSYCH: alert, oriented, cog nitive function intact, cooperative with exam, good eye contact, mood/affect full range, speech clear FEMALE GENITOURINARY: Vulva without lesi ons or masses, vagina pink without abnormal discharge, lesions or masses, cervix appears normal and is not tender to palpation, uterus is normal size, mobile, nontender and anteverted, ovaries are not palpable
--- OUTSIDE RECORDS SUMMARY | 2023-08-13 09:00 | XMS_ITS ---
Author Organization [facility] Address [address] [place] [phone] Care Team Providers Care Frame Expander Name Role Phone NO, PCP Primary Care Provider [phone] Debby Murphy Unavailable [phone] Kandice Sam Unavailable [phone] Encounters Encounter Location Date Provider Diagnosis [facility] [address] [place] [phone] 08/13/2023 Kandice Sam Plan Of Treatment No Information Progress Notes * Jerilyn NORTONDOB: 7 (49 yo F)Acc No.[id number]:08/13/2023 Case Management Patient: Jerilyn DEL ROSARIO Provider: Tony Sam :1975 A ge:47 Y S ex:Female Date:08/13/2023 Address:[address] [place], [place] [phone] Pcp:PCP NO Subjective: * Chief Complaints: * * Medical History: Objective: Assessment: Plan: * Treatment: * Images: Billing Information: * Visit Code: * Procedure Codes: Care Plan Details* * Electronic signature of Crescencio Sam on 12/06/2024 at 09:54 AM EDT Sign off status: Pending * Provider: Tony Sam Date: 0 08/13/2023 Generated for Luis Alberto ramos/Toma/Rudy on: 1 09:54 AM EDT
--- OUTSIDE RECORDS SUMMARY | 2023-08-14 10:20 | XMS_ITS ---
Author Organization [employer] [facility] Address [address] [address] Care Team Providers Care Soccer Referee Name Role Phone SHAYNA SOTELO N.P. Primary Care Provider MENDOZA Jarrett [phone] REASON FOR VISIT ULTRA - CK IUD PLACEMENT Encounters Encounter Location Date Provider Diagnosis [facility] [address] [address] 08/14/2023 MENDOZA RALPH Plan Of Treatment No Information Progress Notes * GURPREET KIMDOB: 7 (49 yo F)Acc No.[id number]:08/14/2023 PROGRESS NOTES Patient: GURPREET DEL ROSARIO Provider: Mohinder RALPH MD :1975 A ge:47 Y S ex:Female Date:08/14/2023 Address:[address] Pcp:SHAYNA SOTELO N.P. Subjective: * Chief Complaints: * 1 . ULTRA - CK IUD PLACEMENT. * Medical History: Objective: * Vitals: Assessment: Plan: * Treatment: * Images: Billing Information: * Visit Code: * Procedure Codes: * Electronic signature of MENDOZA RALPH MD on 12/06/2024 at 09:56 AM EDT Sign off status: Pending * Provider: Mohinder RALPH MD Date: 0 08/14/2023 Generated for Printi ng/Faxing/eTransmitting on: 1 09:56 AM EDT
--- OUTSIDE RECORDS SUMMARY | 2023-09-04 09:00 | XMS_ITS ---
Author Organization [employer] [facility] Address [address] [address] Care Team Providers Care Production Sorter Name Role Phone SHAYNA SOTELO N.P. Primary Care Provider MENDOZA Jarrett [phone] REASON FOR VISIT ULTRA - CK IUD PLACEMENT Encounters Encounter Location Date Provider Diagnosis [facility] [employer] [facility] [address] [address] 09/04/2023 MENDOZA RALPH Plan Of Treatment No Information Progress Notes * GURPREET KIMDOB: 7 (49 yo F)Acc No.[id number]:09/04/2023 PROGRESS NOTES Patient: GURPREET DEL ROSARIO Provider: Mohinder RALPH MD :1975 A ge:47 Y S ex:Female Date:09/04/2023 Address[address] Pcp:SHAYNA SOTELO N.P. Subjective: * Chief Complaints: * 1 . ULTRA - CK IUD PLACEMENT. * Medical History: Objective: * Vitals: Assessment: Plan: * Treatment: * Images: Billing Information: * Visit Code: * Procedure Codes: * Electronic signature of MENDOZA RALPH MD on 12/06/2024 at 09:55 AM EDT Sign off status: Pending * Provider: Mohinder RALPH MD Date: 0 09/04/2023 Generated for Printi ng/Faxing/eTransmitting on: 1 09:55 AM EDT
--- OUTSIDE RECORDS SUMMARY | 2023-11-12 09:20 | XMS_ITS ---
Author Organization [facility] [employer] [facility] Address [address] [address] Care Team Providers Care Despatch Clerk Name Role Phone SHAYNA SOTELO N.P. Primary Care Provider MENDOZA Jarrett [phone] REASON FOR VISIT ? IUD REMOVAL Problems Problem Type SNOMED Code ICD Code Onset Dates Problem Status W/U Status Risk Notes Problem Stenosis of cervix (28745464) Stricture and stenosis of cervix uteri (N88.2) Active confirmed Encounters Encounter Location Date Provider Diagnosis [facility] [employer] Particle Code [address] [address] 11/12/2023 MENDOZA RALPH Encounter for remova l [...] * GURPREET KIMDOB: [birth year] (49 yo F)Acc No.[id number]:11/12/2023 PROGRESS NOTES Patient: GURPREET DEL ROSARIO Provider: Mohinder RALPH MD :1975 A ge:48 Y S ex:Female Date:11/12/2023 Address: [address] [facility] Pcp:SHAYNA STOELO NBrian Subjective: * Chief Complaints: * 1 [...] Other psychoactive substance abuse, in remission. * Installer Inspector Final History: G ravida/ Para 2 /2. S [...] Information: * Visit Code: * Procedure Codes: 97465 REMOVE INTRAUTERINE DEVICE. * Electronic signature of MENDOZA RALPH MD on 12/06/2024 at 09:55 AM EDT Sign off status: Pending * Provider: Mohinder RALPH MD Date: 0 11/12/2023 Generated for Luis Albetro ramos/Toma/Christositting on: 1 09:55 AM EDT History and Physical Notes * [...]
--- OUTSIDE RECORDS SUMMARY | 2023-12-10 06:20 | XMS_ITS ---
Author Organization [facility] [employer] [facility] Address [address] [address] Care Team Providers Care Electrician Research Name Role Phone SHAYNA SOTELO N.P. Primary Care Provider MENDOZA Jarrett Unavailable [phone] REASON FOR VISIT ? IUD REMOVAL Medications [...] Active Encounters Encounter Location Date Provider Diagnosis [facility] [employer] [address] [address] 12/10/2023 MENDOZA RALPH Encounter for remova l [...] * GURPREET KIMDOB: [birth year] (49 yo F)Acc No.[id number]:12/10/2023 PROGRESS NOTES Patient: Briana MaryBETSY GURPREET Provider: Mohinder RALPH MD :1975 A ge:48 Y S ex:Female Date:12/10/2023 Address:[place] [address], [place], [id number] Pcp:SHAYNA SOTELO N.P. Subjective: * Chief Complaints: [...] Other psychoactive substance abuse, in remission. * Concrete Products Machine Operator History: G ravida/ Para 2 /2. S [...] Information: * Visit Code: * Procedure Codes: 57537 REMOVE INTRAUTERINE DEVICE. * Electronic signature of MENDOZA RALPH MD on 12/06/2024 at 09:55 AM EDT Sign off status: Pending * Provider: Mohinder RALPH MD Date: Generated for Luis Alberto ramos/Toma/Christositting on: 09:55 AM EDT
--- OUTSIDE RECORDS SUMMARY | 2024-08-04 06:30 | XMS_ITS ---
Author Organization [facility] Address [address] [address] Care Team Providers Care Paving And Surfacing Labourer Name Role Phone SHAYNA SOTELO N.P. Primary Care Provider MENDOZA Jarrett Unavailable [phone] REASON FOR VISIT Annual ENTERTAINMENT AGENT Physical Encounters Encounter Location Date Provider Diagnosis [facility] [address] [address] 08/04/2024 MENDOZA RALPH Encounter for gynecological examination [...] Follow Up: 1 Year, Reason: Y early Police And Fire Dispatcher Exam Progress Notes * GURPREET KIMDOB: [birth year] (49 yo F)Acc No.[id number]:08/04/2024 PROGRESS NOTES Patient: GURPREET DEL ROSARIO Provider: Mohinder RALPH MD :1975 A ge:48 Y S ex:Female Date:08/04/2024 Address:[place] [address], [place] , [id number] Pcp:SHAYNA SOTELO N.P. Subjective: * Chief Complaints: * 1 . Annual ENTERTAINMENT AGENT Physical. * HPI: C onstitutional: Gurpreet is a 48yo with amenorrhea on Mirena who presents for her yearly tenter frame back tender exam. She has been in state of [...] does *not exercise. * ROS: A nnual Police And Fire Dispatcher Exam ROS: Bowel habit changes d enies. [...] no acute distress, well developed, well nourished, wheel filler present in room. HEAD: n ormocephalic, atraumatic. [...] * Follow Up: 1 Year (Reason: Yearly Police And Fire Dispatcher Exam) * Images: Billing Information: * Visit Code: 14961 Preventive Care Est Pt. Age 40-64. * Procedure Codes: * Electronic signature of MENDOZA RALPH MD on 12/06/2024 at 09:55 AM EDT Sign off status: Pending * Provider: Mohinder RALPH MD Date: 0 08/04/2024 Generated for [employer] rachel/Toma/eTransmitting on: 1 09:55 AM EDT History and Physical Notes * HPI (History of Present Illness) Category Sub-Category Detail Notes Category Not es Constitutional Gurpreet is a 48yo with amenorrhea on Mirena who presents for her yearly tenter frame back tender exam. She has been in state of [...] General Examination GENERAL APPEARANCE: in no ac [place] distress, well developed, well nourished, wheel filler present in room HEAD: normocephalic, atrau matic [...]
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
--- OUTSIDE RECORDS SUMMARY | 2024-09-27 04:20 | XMS_ITS ---
Author Organization [facility]ified [facility] Address [address] [address] Care Team Providers Care Fence Erector Supervisor Name Role Phone SHAYNA SOTELO N.P. Primary Care Provider MENDOZA Jarrett Unavailable [phone] REASON FOR VISIT Annual OPERATIONS TECHNICIAN Physical Encounters Encounter Location Date Provider Diagnosis [facility] Verified Person [address] [address] 09/27/2024 MENDOZA RALPH Encounter for gynecological examination [...] Follow Up: 1 Year, Reason: Y early Mixer Operator Vacuum Pan Salt Exam Progress Notes * GURPREET KIMDOB: [birth year] (49 yo F)Acc No.[id number]:09/27/2024 PROGRESS NOTES Patient: GURPREET DEL ROSARIO Provider: Mohinder RALPH MD :1975 A ge:48 Y S ex:Female Date:09/27/2024 Address:[place] [address], [place] , [id number] Pcp:SHAYNA SOTELO N.P. Subjective: * Chief Complaints: * 1 . Annual OPERATIONS TECHNICIAN Physical. * HPI: C onstitutional: Gurpreet is a 48yo with amenorrhea on Mirena who presents for her yearly quartz orientator exam. She has been in state of [...] does *not exercise. * ROS: A nnual Mixer Operator Vacuum Pan Salt Exam ROS: Bowel habit changes d enies. [...] no acute distress, well developed, well nourished, sheep herder present in room. HEAD: n ormocephalic, atraumatic. [...] * Follow Up: 1 Year (Reason: Yearly Mixer Operator Vacuum Pan Salt Exam) * Images: Billing Information: * Visit Code: 88630 Preventive Care Est Pt. Age 40-64. * Procedure Codes: * Electronic signature of MENDOZA RALPH MD on 12/06/2024 at 09:54 AM EDT Sign off status: Pending * Provider: Mohinder RALPH MD Date: 0 09/27/2024 Generated for [employer] rachel/Toma/eTransmitting on: 1 09:54 AM EDT History and Physical Notes * HPI (History of Present Illness) Category Sub-Category Detail Notes Category Not es Constitutional Gurpreet is a 48yo with amenorrhea on Mirena who presents for her yearly quartz orientator exam. She has been in state of [...] General Examination GENERAL APPEARANCE: in no ac poarch distress, well developed, well nourished, sheep herder present in room HEAD: normocephalic, atrau matic [...]
--- NOTE | 2024-12-06 08:40 | AM.OFFVISNUR ---
Vital Signs 12/06/24 09:14 BP 120/70 Pulse 96 Intake Visit Reasons: Injection Allergies No Known Allergies (No Known Allergies*) Allergy (Verified 12/06/24 09:15) Nursing Note Jerilyn presents today for Sublocade 300 mg injection; she is alert, oriented, cooperative and presents with an appropriate affect. She identified utilizing SL strips over the past few days, requested bridge due to needing strips for the last few days prior to injection, will schedule a couple days earlier at 26. Jerilyn reports some issues with her new job, not giving hours as planned or proper training, she lost her dog to cancer after 13 years. Follow up in 4 weeks for next injection Office Meds Sublocade 300 mg/1.5 mL solution,extended release subcutaneous syringe Performing Provider: Rose Qiu MD Performing Location: [facility] Administered by: Gifty Castro RN on 12/06/24 10:02 Dose Route Admin Location Dispensed Lot Number Expiration Date [facility] R&D Lab Technician 300 mg subcut RUQ 1.5 mL [id number] 07/16/26 [address]-8 [employer] Total Dispensed Waste 1.5 mL 0 % Comments: Pt is present for Sublocade 300 mg injection. Pt denies any concern with previous injection and tolerated injection well. Educated on signs and symptoms of infection and encouraged to call [facility] with any related questions or concerns, pt verbalized understanding. Follow-up scheduled in 4 weeks for next injection. Assessment & Plan Assessment & Plan Orders: Orders AMB Buprenorphine Injection - Patient Supplied Today F11.21 - Opioid dependence, in remission Coding
[2024-12-06 09:14] VITALS: BP 120/70; PULSE 96
--- OUTSIDE RECORDS SUMMARY | 2024-12-06 09:53 | XMS_ITS | Clinical Summary ---
Author Organization [employer] [facility] [employer] Address [address] [place] [address] Care Team Providers Care Academic Affairs Dean Name Role Phone Brian Vidal Primary Care [...] 18 yrs or above (or HM Modifier)([facility]) 1994 Hepatitis C Virus Infection in Adolescents and Adults: Screening (or Modifier) ([facility]) 1994 [facility] Screening Reminder: Shantel kelsey for all adults ([facility]) 1994 DTaP/Tdap/Td Vaccines ([facility]) (1 - Tdap) 10/13/1995 Cervical Cancer Screenin 1-65 yrs of age (or Modifier) 1997 Cervical Cancer Screening: P ap every 3 yrs pts age 21-65 1997 Cervical Cancer: Pap Screeni ng with Modifier timing ([facility]) 1997 Cervical Cancer: hrHPV alone or with cotesting Pap for Pts 30-65yrs screening every 5yrs ([facility]) 1997 Colorectal Cancer Screening 45 -75 Yrs (or HM Modifier) 2021 Colorectal Cancer: FLEXIBLE SIGMOIDOSCOPY Screening every 5 yrs 2021 Colorectal Cancer: Fecal Immunochemical Test (FIT) Annually [facility] 2021 Colorectal Cancer: High-sens itivity gFOBT Screening Annually [facility] 2021 Colorectal Cancer: Stool Col oguard Screening every 3 yrs 2021 Colorectal Cancer:CT Colonog paige Screening every 5 yrs 2021 Tobacco Smoking Cessation: i n Adults excluding Women: Behavioral and Pharmacotherapy Interventions ([facility]) 05/04/2024 05/05/2023 Flu Vaccination: Yearly for ages 18mos through 64 years (or Modifier)([facility]) 09/16/2024 COVID-19 Vaccine Screening: Initial Series and Booster Status ([facility]) ( season) 2024 Zoster/Shingles Vaccine Seri es Screening: Adults aged 18+ yrs (or HM Modifiers)([facility]) (1 of 2) 2026 Pneumococcal Vaccination Scr eening: Pts 0-19 & 19-49 yrs of age ([facility]) Aged Out No longer eligible b ased on patient's age to complete this topic Medical Devices Not on file Insurance [place] Care Teams Academic Affairs Dean Relationship Specialty Start Date End Date Brian Vidal DO [address] [place] [phone] PCP - General Internal Medicine 05/05/23
--- OUTSIDE RECORDS SUMMARY | 2024-12-06 09:54 | XMS_ITS | Data Portability ---
Author Organization [facility] Telehealth Patient Home Address [address] [place] [address] Assessment Encounter Date Assessment Date Assessment LastModified by Organization Details LastModified Time 06/08/2019 06/08/2019 12 min tot time Not available 06/08/2019 14:28:35 Plan of Treatment Reminders Order Date Submit Date Provider Last Modified By Organization Details Last Modified Time Details Appointments None recorded. Lab None recorded. Referral gynecologis t referral 2021 tracy Domingo MD, [address] [place], [address], 08:22:41 Procedures None recorded. Surgeries None recorded. Imaging None recorded. Medication Orders valacyclovi r 1 gram tablet 2021 [facility]44462, [address] [place], [place], [id number], 10:45:53 metronidazo le 500 mg tablet 2021 [facility], [address] [place], [place], [id number], 3 11:16:15 bupropion HCl XL 150 mg 24 hr tablet, extended release 2021 [facility] #04987, [address] [place], [place], [id number], 2 10:45:52 acyclovir 400 mg tablet 2021 022 [facility] #82740, [address] [place], [place], [id number], 11:40:49 Valtrex 1 gram tablet 2020 021 [facility] #22172, [address] [place] [address], [id number], 08:11:08 erythromyci n 5 mg/gram (0.5 %) eye ointment 2020 021 [facility] #05580, [address] [place] [address], [id number], 08:10:35 betamethaso ne dipropionat e 0.05 % topical cream 2020 021 [facility] #00486, [address] [place] [address], [id number], 11:18:57 trazodone 50 mg tablet 2020 021 [facility] #81524, [address] [place], [place], [id number], 11:20:30 bupropion HCl SR 150 mg tablet,12 hr sustained-r elease 2020 021 [facility] #52843, [address] [place] [address], [id number], 2 11:18:53 hydroxyzine HCl 50 mg tablet 2020 021 [facility] #63862, [address] [place], [place], [id number], 2 11:19:06 bupropion HCl SR 150 mg tablet,12 hr sustained-r elease 2019 020 [facility] #7068, [address] [facility], [place], [address], 2 11:18:53 Patient TargetsNo targets recorded. 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 Problems Name Problem SNOMED Code Status Onset Date Resolution Date Notes Provider Name and Address Organization Details Recorded Time [facility] 275390490 Completed 201804/27/2019 Brian Vidal DO [address] [place] [address], [phone] Internal Medicine 0 10:06:45 Hyperten sive disorder 50692712 Active 2018 Tereza farley [facility] Internal Medicine 9 08:34:56 Hemorrho ids 42536448 Active 2018 Tereza farley [facility] Internal Medicine 9 08:35:06 Eczema 92906896 Active 2018 Tereza farley [facility] 9 08:35:16 Anxiety 20208635 Active 2018 Tereza farley [facility] Medicine 9 08:35:22 Tension- type headache 385628187 Active 2018 Tereza farley [facility] 9 08:35:34 Depressi ve disorder 01033716 Active 2019 Brian Vidal DO [address] [place], [address], [facility] 0 10:07:08 Herpes labialis 6883286 Active 2021 KAYLA MCKEE [address] [place], [address], [facility] Internal Medicine 2 11:30:07 Bacteria l vaginosi s 397225017 Active 2021 KAYLA MCKEE [address] [place], [address], [facility] Internal Medicine 2 10:42:38 Pain in pelvis 09591931 Active 2021 KAYLA MCKEE [address] [place], [address], [facility] Internal Medicine 2 10:48:23 Problem Notes None recorded. Medical Equipment None Reported. Allergies Allergen ID Allergen Name Allergen Category Reaction Reaction Severity Criticality Documentation Date Start Date Code Code System Note Provider Name and Address Organization Details Recorded Time 2649 citalopra m medicatio n Not available Not available Not available 02/19/2018 2556 RxNorm Tereza Sawyer [facility] [place] [facility] 9 08:34:36 Medications Name Sig Start Date Stop Date Status Note LastModified by Organization Details LastModified Time vitamin b complex/vit henry c tabs active Not Available Not Available Not Available bupropion HCl SR 150 mg tablet,12 hr sustained-r elease TAKE 1 TABLET BY MOUTH THREE TIMES DAILY 11/11 completed Not Available Not Available Not Available nicotine 14 mg/24 hr daily transdermal patch APPLY 1 PATCH TO THE SKIN DAILY active Not Available Not Available No t Available Carafate 100 mg/mL oral suspension SHAKE LIQUID AND TAKE 10 ML BY MOUTH THREE TIMES DAILY BEFORE MEALS AND AT BEDTIME active Not Available Not Available No t Available trazodone 50 mg tablet TAKE 1 TABLET BY MOUTH AT BEDTIME NEEDED FOR SLEEP active Not Available Not Available No t Available nicotine (polacrilex ) 2 mg gum CHEW 1 GUM EVERY 1 TO 2 HOURS 11/11 completed Not Available Not Available Not Available hydrochloro thiazide 50 mg tablet Take 1 tablet every day by oral route. 04/26 completed Not Available Not Available Not Available valacyclovi r 1 gram tablet TAKE 1 TABLET BY MOUTH DAILY active Not Available Not Available No t Available Milk of Magnesia 400 mg/5 mL oral suspension active Not Available Not Available N ot Available clobetasol 0.05 % topical cream 11/11 completed Not Available Not Available Not Available topiramate 25 mg tablet TAKE 2 TABLETS BY MOUTH DAILY active Not Available Not Available No t Available metronidazo le 500 mg tablet TAKE 1 TABLET BY MOUTH EVERY 8 HOURS FOR 10 DAYS 02/24 completed Not Available Not Available Not Available hydroxyzine HCl 50 mg tablet TAKE 1 TABLET BY MOUTH THREE TIMES DAILY 11/11 completed Not Available Not Available Not Available acyclovir 400 mg tablet Take 1 tablet 3 times a day by oral route for 7 days. 2021 active Not Available Not Available Not Avai lable triamcinolo ne acetonide 0.1 % topical cream APPLY A THIN LAYER TO THE AFFECTED AREA(S) BY TOPICAL ROUTE 2 TIMES PER DAY 11/11 completed Not Available Not Available Not Available amoxicillin 500 mg tablet TAKE 1 TABLET BY MOUTH EVERY 6 HOURS UNTIL GONE active Not Available Not Available No t Available famotidine 20 mg tablet TAKE 1 TABLET BY MOUTH TWICE DAILY active Not Available Not Available No t Available erythromyci n 5 mg/gram (0.5 %) eye ointment APPLY 1 CM RIBBON INTO THE LOWER CONJUNCTI PILI SAC(S) IN THE AFFECTED EYE(S) BY OPHTHALMI C ROUTE 3 TIMES PER DAY 11/11 completed Not Available Not Available Not Available fluoxetine 20 mg tablet Take 1 tablet 3 times a day by oral route. 04/26 completed Not Available Not Available Not Available ibuprofen 400 mg tablet active Not Available Not Available Not Available betamethaso ne dipropionat e 0.05 % topical cream APPLY THIN LAYER TOPICALLY TO THE AFFECTED AREA EVERY DAY 11/11 completed Not Available Not Available Not Available docusate sodium 100 mg capsule TAKE 1 CAPSULE BY MOUTH EVERY DAY active Not Available Not Available No t Available omeprazole 20 mg capsule,del ayed release TAKE 1 CAPSULE BY MOUTH DAILY active Not Available Not Available No t Available hydroxyzine HCl 25 mg tablet TAKE 1 TABLET BY MOUTH THREE TIMES DAILY NEEDED FOR ANXIETY active Not Available Not Available No t Available lisinopril 5 mg tablet Take 1 tablet every day by oral route. 04/26 completed Not Available Not Available Not Available ibuprofen 600 mg tablet TAKE 1 TABLET BY MOUTH EVERY 8 HOURS NEEDED FOR PAIN active Not Available Not Available No t Available ondansetron 4 mg disintegrat ing tablet active Not Available Not Available N ot Available fluoxetine 20 mg capsule 3 capsules daily 04/26 completed Not Available Not Available Not Available nicotine (polacrilex ) 4 mg buccal lozenge active Not Available Not Available Not Available nicotine (polacrilex ) 2 mg buccal lozenge 1 LOZENGE BY MOUTH EVERY 1 TO 2 HOURS active Not Available Not Available No t Available Stool Softener-La xative 8.6 mg-50 mg tablet active Not Available Not Available Not Available bupropion HCl XL 300 mg 24 hr tablet, extended release TAKE 1 TABLET BY MOUTH EVERY MORNING active Not Available Not Available No t Available bupropion HCl XL 150 mg 24 hr tablet, extended release TAKE 1 TABLET BY MOUTH EVERY MORNING active Not Available Not Available No t Available topiramate 50 mg tablet TAKE 1 TABLET BY MOUTH EVERY MORNING AND 2 TABLETS IN THE EVENING TOTAL DOSE 150 MG DAILY active Not Available Not Available No t Available lactulose 10 gram/15 mL oral solution TAKE 15 ML BY MOUTH DAILY NEEDED FOR CONSTIPAT ION 11/11 completed Not Available Not Available Not Available vitamin B complex-vit henry C-folic acid 400 mcg tablet TAKE 1 TABLET BY MOUTH EVERY DAY active Not Available Not Available No t Available Suboxone 8 mg-2 mg sublingual film TAKE 1 FILM SUBLINGUA LLY TWICE DAILY active Not Available Not Available No t Available Suboxone 2 mg-0.5 mg sublingual film 2 mg daily 2020 active Not Available Not Available Not Avai lable Narcan 4 mg/actuatio n nasal spray INSTILL 1 SPRAY NASALLY DIRECTED NEEDED 11/11 completed Not Available Not Available Not Available nicotine (polacrilex ) 2 mg buccal mini lozenge DISSOLVE 1 LOZENGE BY MOUTH EVERY 1 TO 2 HOURS 11/11 completed Not Available Not Available Not Available Sublocade 300 mg/1.5 mL solution,ex tended release subcutaneou s syringe active Not Available Not Available No t Available Vitals Date Recorded Body height Body mass index (BMI) Body weight Oxygen saturation Oxygen saturation in Arterial blood by Pulse oximetry Heart rate Systolic And Diastolic Provider Name and Address Organization Details Last Updated DateTime 2 167.64 cm 21.6 kg/m2 28041.7 4 g 100 % 100 % 66 /min 110/70 mm[Hg] Leah Escobar [facility] Internal Medicine 2 11:21:47 Social History Question Answer Notes LastModified by Organizat ion Details LastModified Time Tobacco Smoking Status Current Every Day Smoker couple cigerettes per day Leah farley [facility] 11/11/2021 11:20:52 What Was The Date Of Your Most Recent Tobacco Screening? 11/11/2021 [email or web address] Information not available 11/11/2021 Sex: Unknown Functional Status None recorded. Mental Status None recorded. Family History Nothing Reported. Medical History No medical history recorded. Gynecological HistoryNo gynecological history recorded. Obstetrics History GPAL:G 0 P 0 0 0 0 Past Encounters Encounter ID Performer Location Encounter Start Date Encounter Closed Date Diagnosis/Indication Diagnosis SNOMED-CT Code Diagnosis ICD10 Code Diagnosis IMO Codes Diagnosis Note [id number] Brian Vidal [facility] Internal Medicine [address] [facility] [address] 04/27/2019 09:47:45 04/27/2019 10:19:28 Depressive disorder 08448544 F32.9 will try wellbutrin Hypertensive disorder 38 301745 I10 bp is good she had lost 40 lbs on her own due to depression Eczema 27050070 L30.9 nummular on belly small patch will use clobetasol [id number] Brian Vidal [facility] Internal Medicine [address] [facility] [place] [address] 05/17/2019 13:32:48 05/17/2019 13:45:47 Depressive disorder 49544286 F32.9 will try wellbutrin [id number] Brian Vidal [facility] Internal Medicine [address] [facility] [place] [address] 06/08/2019 08:18:30 06/08/2019 14:31:22 Depressive disorder 03307874 F32.9 wellbutrin has helped and she is clearly improved we will cont the 150mg bid dosing and follow over the next 2 months she knows to call if there are any issues before then told her expect the med to cont to improve her overall status the longer she is on it. will talk again in july needs back to work note [id number] Brian Vidal [facility] Internal Medicine [address] [facility] [facility] [address] 06/26/2020 13:41:03 06/26/2020 16:40:06 Anxiety 11781872 F41.9 will refill that medication and medication that was used at rehab that worked well Depressive disorder 3548 9007 F32.9 trazodone works well for her Hordeolum externum of upper eyelid of right eye 5405251284 21959 H00.011 stye in her right eye will give ointment Eczema 48207374 L30.9 needs refill Herpes labialis 6836767 B00.1 cold sores, will give refill [id number] Brian Vidal [facility] Internal Medicine [address] [facility] [facility] [address] 11/11/2021 11:13:38 11/11/2021 11:43:46 Depressive disorder 08662121 F32.9 will fu with me with a message regarding what they do for her at the clinic3 mo fu was scheduled as well Herpes labialis 0341850 B00.1 cold sores, will give refill [id number] Brian Vidal [facility] Internal Medicine [address] [facility] [address] 01/17/2022 10:03:40 01/17/2022 11:07:37 Anxiety 43229187 F41.1 will add to the 300 mg and 150 mg together Depressive disorder 3548 9007 F32.9 will f/u with her therapist as well with her mood Bacterial vaginosis 0940 66596 N76.0 will treat with metronidaz shayla be seeing her gynecologi st Herpes labialis 9878373 B00.1 cold sores, will give refill Pain in pelvis 11537454 R10.2 will set up with gynecologi st IUD check 562322404 Z30. 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 Jerilyn Chavezle 06/22/2023 1 [place] PRIOR TO 2022 - [facility]LY [facility] (MEDICAID) Jerilyn Chavezle [id number] Jerilyn Chavezle 06/22/2023 1 [place] Jerilyn Norton [id number] Jerilyn Chavezle 04/22/2019 1 *SELF PAY* Last eli Cierra 06/22/2023 1 [facility] [id number] Jerilyn Chavezle [id number] Jerilyn Cierra Notes Date Note Type Note Provider Name a nd Address Organization Details Recorded Time 05/17/2019 text/html ROS as noted in the HPI tele conf and states that she has been on bupropion for 2 weeks taking once a day and is not feeling better yet still having extra stress and hard managing the stress just doing small things is daunting is sleeping ok appetite ok if anything she wants to sleep more only taking daily once Brian Vidal DO [address] [place], [address], [facility] 05/17/2019 13:45:09 06/08/2019 text/html ROS as noted in the HPI telephone call per pt consent and request pt has been taking wellbutrin for the last 3 weeks and is actually doing much better relates she is not perfect but is clearly improved states less anxious and less dark mood long detailed discussion re plans for length of treatment etc also, she is tolerating the med very well without issue Brian Vidal DO [address] [place], [address], [facility] Internal Medicine 06/08/2019 15:43:59 06/26/2020 text/html ROS as noted in the HPI medication fu anxiety: the patient came off the bupropion while at the program the patient reports that the medication didn't really help the patient completed a 14 day program at [facility] in [place] for substance abuse disorders the patient has been off cocaine for 14 days which is excellent has a fu with psych tomorrow which she is excited for she has been taking care of herself and feels good will fu PRN KAYLA MCKEE [address] [place], [address], [facility] Internal Medicine 06/26/2020 14:36:14 11/11/2021 text/html ROS as noted in the HPI c/o severe major depression the patient reports that she has a h/x of drug and alcohol abusethe patient is also struggling with personal issues with her finances and her son the patient is currently on suboxone, sees the [facility] for this as curt does note she relapsed recently when she was out with the friends 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 but states she does not find it stimulating and would like to find something else but she would like to go to rehab for a longer detox program as well which she reports has been helpful in the past the patient reports that her depression is significantthe patient is seeing the [facility] [place] > she is seeing someone at [facility] for therapy, will be discussing it today with them told her she can call if the can recommend medication but can't prescribe it will fu in three months after she sees them KAYLA MCKEE [address] [place], [address], [facility] Internal Medicine 11/11/2021 11:41:29 01/17/2022 text/html ROS as noted in the HPI f/utelemed phone callpatient consents to phone call anxiety: stable, seeing a therapistwill add to the 300 mg her therapist upped her to with another 150 mg cold sores: needs renewal of her script IUD is over due for removal, having pelvic pain and fam hx of cervical cancerwill set up with stat referral to SURGICAL ATTENDANT possibly BV given discharge; will start on abx KAYLA MCKEE [address] [place], [address], [facility] Internal Medicine 01/17/2022 10:55:56 OBGyn Episode No OBEpisode recorded.
--- OUTSIDE RECORDS SUMMARY | 2024-12-06 09:55 | XMS_ITS | Patient Health Record ---
Author Organization [facility] Address [address] [place] [address] Care Team Providers Care Automobile Seat Cover Installer Name Role Phone NO, PCP Primary Care Provider [phone] AustinSUSHANTSeraMurphy barriga Unavailable [phone] Reason For Referral No Information Plan Of Treatment No Information Insurance Providers Payer Name Payer Address Payer Phone Subscriber Number Group Number Insured Name Patient Relationship to Insured Coverage Start Date Coverage End Date [place] Standard [address] [place] [address] [id number] Jerilyn Norton Self - patient is the insured 4 [facility] [address] [place] [address] [id number] Jerilyn Norton Self - patient is the insured 4
--- OUTSIDE RECORDS SUMMARY | 2024-12-06 09:56 | XMS_ITS | Patient Health Record ---
Author Organization [facility] Address [address] [facility] [address] [place] [address] Care Team Providers Care Tailor Fitter Name Role Phone SHAYNA SOTELO N.P. Primary Care Provider Unavaila MENDOZA Grider Unavailable [phone] Allergies No Known Allergies Reason For Referral [...] test positive, high risk on vaginal specimen (826163548325935) Cervical high risk human papillomavirus (HPV) DNA test positive (R87.810) Active confirmed Problem Stenosis of cervix (47230010) Stricture and stenosis of cervix uteri (N88.2) Active confirmed Problem Essential hypertension (38205959) Essential (primary) hypertension (I10) Active confirmed Problem Major depression, single episode (62212442) Major depressive disorder, single episode, unspecified (F32.9) Active confirmed Problem Generalized anxiety disorder (88685462) Generalized anxiety disorder (F41.1) Active confirmed Problem History of novel psychoactive substance misuse (situation) (474940510) Other psychoactive substance abuse, 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 confirmed Problem COVID-19 (366028646) COVID-19 (U07.1) Active confirmed Vital Signs Temperature 98.0 degrees Fahrenheit 12/18/2023 Blood pressure diastolic 68 mm Hg 12/18/2023 Height 65 in 12/18/2023 Blood pressure systolic 102 mm Hg 12/18/2023 Weight 139 lbs 12/18/2023 BMI 23.13 kg/m2 12/18/2023 Encounters Encounter Location Date Provider Diagnosis [address] [address] 09/27/2024 MENDOZA RALPH Encounter for gynecological examination (general) (routine) without abnormal findings Z01.419 ; Encounter for screening mammogram for malignant neoplasm of breast Z12.31 and Encounter for screening for infections with a predominantly sexual mode of transmission Z11.[address] [address] 12/18/2023 MENDOZA RALPH Encounter for remova l of intrauterine contraceptive device Z30.[address] [address] 12/18/2023 MENDOZA RALPH Assessments Encounter Date Diagnosis [...] Insured Coverage Start Date Coverage End Date [facility] PLANS [id number] [facility] [address] [place] [phone] [id number] GURPREET KIM Self - patient is the [...]
== END 2024-12-06 10:00 | disposition home or self-care (01) ==
LOC: HO.HCC 09:07
PROVIDERS: PCP Nurse Practitioner Family
DX: F11.21 Opioid dependence, in remission (principal)

== ENCOUNTER → 2024-12-06 09:07 | Outpatient (BNVA) | payer OTHER, SELFPAY | PROVIDERS: PCP Nurse Practitioner Family | DX: F11.21 Opioid dependence, in remission (principal) | CPT/HCPCS: 96372; Q9992 ==

== ENCOUNTER 2025-01-02 09:26 | Outpatient (AMB) | payer OTHER, SELFPAY ==
--- NOTE | 2025-01-02 09:36 | AM.OFFVISNUR ---
Vital Signs 01/02/25 09:47 BP 126/72 Pulse 74 Pulse Oximetry (%) 98 Intake Visit Reasons: Injection Allergies No Known Allergies (No Known Allergies*) Allergy (Verified 01/02/25 09:48) Nursing Note Jerilyn presents today for Sublocade 300 mg injection; she is alert, oriented, cooperative and presents with an appropriate affect. Jerilyn reports some minor symptoms on the last 2-3 days before the next injection however better than in the previous month. Moved injection up a few days and maintaining 300 mg dose. Jerilyn has plans with her mother over and is looking forward to a quiet day. Terrie had an appointment scheduled for provider check in this morning but needed to reschedule. Follow up in four weeks for the next injection. Office Meds Sublocade 300 mg/1.5 mL solution,extended release subcutaneous syringe Performing Provider: Rose Qiu MD Performing Location: [facility] Administered by: Gifty Castro RN on 01/02/25 09:55 Dose Route Admin Location Dispensed Lot Number Expiration Date [facility] [employer] 300 mg subcut LLQ 1.5 mL [id number] 07/16/25 [address]-5 [employer] Total Dispensed Waste 1.5 mL 0 % Comments: Pt is present for Sublocade 300 mg injection. Pt denies any concern with previous injection and tolerated injection well. Educated on signs and symptoms of infection and encouraged to call [facility] with any related questions or concerns, pt verbalized understanding. Follow-up scheduled in 4 weeks for next injection. Assessment & Plan Assessment & Plan Orders: Orders AMB Buprenorphine Injection - Patient Supplied Today F11.21 - Opioid dependence, in remission Coding
[2025-01-02 09:47] VITALS: BP 126/72; PULSE 74; O2SAT 98
== END 2025-01-02 10:03 | disposition home or self-care (01) ==
LOC: HO.HCC 09:26
PROVIDERS: PCP Nurse Practitioner Family
DX: F11.21 Opioid dependence, in remission (principal)

== ENCOUNTER → 2025-01-02 09:26 | Outpatient (BNVA) | payer OTHER, SELFPAY | PROVIDERS: PCP Nurse Practitioner Family | DX: F11.21 Opioid dependence, in remission (principal) | CPT/HCPCS: 96372; Q9992 ==

== ENCOUNTER 2025-02-06 08:48 | Outpatient (AMB) | payer OTHER, SELFPAY ==
--- OUTSIDE RECORDS SUMMARY | 2023-08-13 08:00 | XMS_ITS ---
Author Organization [facility] Address [address] [place] [address] Care Team Providers Care Acid Maker Name Role Phone NO, PCP Primary Care Provider [phone] Debby Murphy Unavailable [phone] Kandice Sam Unavailable Encounters Encounter Location Date Provider Diagnosis [facility] [address] [place] [phone] 08/13/2023 Kandice Sam Plan Of Treatment No Information Progress Notes * Jerilyn KIMDOB: 7 (49 yo F)Acc No.[id number]:08/13/2023 Case Management Patient: Jerilyn DEL ROSARIO Provider: Tony Sam :1975 A ge:47 Y S ex:Female Date:08/13/2023 Address:[address] [place], [place] [phone] Pcp:PCP NO Subjective: * Chief Complaints: * * Medical History: Objective: Assessment: Plan: * Treatment: * Images: Billing Information: * Visit Code: * Procedure Codes: Care Plan Details* * Electronic signature of Crescencio Sam on 02/06/2025 at 09:13 AM EST Sign off status: Pending * Provider: Tony Sam Date: 0 08/13/2023 Generated for Luis Alberto ramos/Toma/Rudy on: 1 04/09/2024 09:13 AM EST
--- OUTSIDE RECORDS SUMMARY | 2023-08-14 09:20 | XMS_ITS ---
Author Organization [facility] Address [address] [address] Care Team Providers Care Clinical Nurse Leader Name Role Phone SHAYNA SOTELO N.P. Primary Care Provider MENDOZA Jarrett [phone] REASON FOR VISIT ULTRA - CK IUD PLACEMENT Encounters Encounter Location Date Provider Diagnosis [facility] [employer] [address] [address] 08/14/2023 MENDOZA RALPH Plan Of Treatment No Information Progress Notes * GURPREET KIMDOB: [birth year] (49 yo F)Acc No.[id number]:08/14/2023 PROGRESS NOTES Patient: GURPREET DEL ROSARIO Provider: Mohinder RALPH MD :1975 A ge:47 Y S ex:Female Date:08/14/2023 Address:[address] Pcp:SHAYNA SOTELO N.P. Subjective: * Chief Complaints: * 1 . ULTRA - CK IUD PLACEMENT. * Medical History: Objective: * Vitals: Assessment: Plan: * Treatment: * Images: Billing Information: * Visit Code: * Procedure Codes: * Electronic signature of MENDOZA RALPH MD on 02/06/2025 at 09:15 AM EST Sign off status: Pending * Provider: Mohinder RALPH MD Date: 0 08/14/2023 Generated for Printi ng/Faxing/eTransmitting on: 1 04/09/2024 09:15 AM EST
--- OUTSIDE RECORDS SUMMARY | 2023-09-04 08:00 | XMS_ITS ---
Author Organization [employer] [facility] Address [address] [address] Care Team Providers Care Junior Paralegal Name Role Phone SHAYNA SOTELO N.P. Primary Care Provider MENDOZA Jarrett [phone] REASON FOR VISIT ULTRA - CK IUD PLACEMENT Encounters Encounter Location Date Provider Diagnosis [facility] [address] [address] 09/04/2023 MENDOZA RALPH Plan Of Treatment No Information Progress Notes * GURPREET KIMDOB: 7 (49 yo F)Acc No.[id number]:09/04/2023 PROGRESS NOTES Patient: GURPREET DEL ROSARIO Provider: Mohinder RALPH MD :1975 A ge:47 Y S ex:Female Date:09/04/2023 Address[address] Pcp:SHAYNA SOTELO N.P. Subjective: * Chief Complaints: * 1 . ULTRA - CK IUD PLACEMENT. * Medical History: Objective: * Vitals: Assessment: Plan: * Treatment: * Images: Billing Information: * Visit Code: * Procedure Codes: * Electronic signature of MENDOZA RALPH MD on 02/06/2025 at 09:14 AM EST Sign off status: Pending * Provider: Mohinder RALPH MD Date: 0 09/04/2023 Generated for Printi ng/Faxing/eTransmitting on: 1 04/09/2024 09:14 AM EST
--- OUTSIDE RECORDS SUMMARY | 2023-11-12 08:20 | XMS_ITS ---
Author Organization [facility] [employer] [facility] Address [address] [address] Care Team Providers Care Production Quality Manager Name Role Phone SHAYNA SOTELO N.P. Primary Care Provider MENDOZA Jarrett [phone] REASON FOR VISIT ? IUD REMOVAL Problems Problem Type SNOMED Code ICD Code Onset Dates Problem Status W/U Status Risk Notes Problem Stenosis of cervix (71686509) Stricture and stenosis of cervix uteri (N88.2) Active confirmed Encounters Encounter Location Date Provider Diagnosis [facility] [employer] [address] [address] 11/12/2023 MENDOZA RALPH Encounter for remova l of intrauterine contraceptive device Z30.432 and Stricture and stenosis of cervix uteri N88.2 Assessments Encounter Date Diagnosis (ICD Code) Assessment Notes Treatment Notes Treatment Clinical Notes Section Notes 11/12/2023 Encounter for removal of intrauterine contraceptive device (ICD-10 - Z30.432) 11/12/2023 Stricture and stenosis of cervix uteri (ICD-10 - N88.2) Plan Of Treatment Next Appt Details Follow Up: prn, Reason: Progress Notes * GURPREET KIMDOB: [birth year] (49 yo F)Acc No.[id number]:11/12/2023 PROGRESS NOTES Patient: GURPREET DEL ROSARIO Provider: Mohinder RALPH MD :1975 A ge:48 Y S ex:Female Date:11/12/2023 Address: [address] [facility] Pcp:SHAYNA SOTELO NBrian Subjective: * Chief Complaints: * 1 . ? IUD REMOVAL. * HPI: C onstitutional: Patient presents for IUD removal. She plans to for contraception. She was seen for her annual exam 08/03/23 and had the following findings: Cervical os not visible, likely due to scarring s/p LEEP procedure. Threads not seen. Will verify presence of IUD. If localized in the proper position, will leave in place. If not in the proper position, may consider referral to surgeon for removal under anesthesia. Patient had an ultrasound 09/04/23 that shows a retroflexed uterus with the IUD in the correct position. * Medical History: M ajor depressive disorder, single episode, unspecified, Essential (primary) hypertension, COVID-19, Generalized anxiety disorder, Other psychoactive substance abuse, in remission. 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 S exual activity n ot currently sexually active. L ast Pap Smear: 2 019. A bnormal Pap Smear: H istory of abnormal pap smears. L MP and menses A bsent with Mirena. H istory of STD's: Y es. B irth Control: M nakia intrauterine device. M enarche [age]. * OB History: T otal pregnancies 2 . T otal living children 2 . N VD 2 . P regnancy # 1: n ormal spontaneous vaginal delivery (), 04/29/2000, Jerome, 7lb 11oz, complicated by pre-eclampsia. P regnancy # 2: n ormal spontaneous vaginal delivery (), 05/07/2002, Boo, 7lb 11oz, no complications. Objective: * Vitals: Assessment: * Assessment: 1. S tricture and stenosis of cervix uteri - N88.2 2 . E ncounter for removal of intrauterine contraceptive device - Z30.432 (Primary) Plan: * Treatment: * Procedures: A speculum was placed in the vaginal so as to adequately expose the cervix. The IUD strings were grasped and the IUD removed without difficulty or incident. She tolerated the procedure well. * Procedure Codes: 5 8301 REMOVE INTRAUTERINE DEVICE * Follow Up: p rn * Images: Billing Information: * Visit Code: * Procedure Codes: 98096 REMOVE INTRAUTERINE DEVICE. * Electronic signature of MENDOZA RALPH MD on 02/06/2025 at 09:14 AM EST Sign off status: Pending * Provider: Mohinder RALPH MD Date: 0 11/12/2023 Generated for Luis Alberto ramos/Toma/Christositting on: 1 04/09/2024 09:14 AM EST History and Physical Notes * HPI (History of Present Illness) Category Sub-Category Detail Notes Category Not es Constitutional Patient presents for IUD removal. She plans to for contraception. She was seen for her annual exam 08/03/23 and had the following findings: Cervical os not visible, likely due to scarring s/p LEEP procedure. Threads not seen. Will verify presence of IUD. If localized in the proper position, will leave in place. If not in the proper position, may consider referral to surgeon for removal under anesthesia. Patient had an ultrasound 09/04/23 that shows a retroflexed uterus with the IUD in the correct position.
--- OUTSIDE RECORDS SUMMARY | 2023-12-10 05:20 | XMS_ITS ---
Author Organization [facility] [employer] [facility] Address [address] [address] Care Team Providers Care English Division Chair Name Role Phone SHAYNA SOTELO N.P. Primary Care Provider MENDOZA Jarrett Unavailable [phone] REASON FOR VISIT ? IUD REMOVAL Medications Medication SIG (Take, Route, Frequency, Duration) Notes Start Date End Date Status traZODone HCl 50 MG 1 tablet at bedtime as needed Orally Once a day Active Brixadi 96 MG/0.27ML 0.27 mL Subcutaneous Active Topiramate 50 MG Oral; Duration: 30 Days Active buPROPion HCl ER (XL) 300 MG Oral; Duration: 30 Days Acti ve Ibuprofen 600 MG TAKE 1 TABLET BY FRANKLYN TH EVERY 8 HOURS NEEDED FOR MODERATE PAIN Oral; Duration: 6 Days Active hydrOXYzine HCl 25 MG Oral; Duration: 30 Days Active Encounters Encounter Location Date Provider Diagnosis [facility] [employer] [address] [address] 12/10/2023 MENDOZA RALPH Encounter for remova l of intrauterine contraceptive device Z30.432 and Stricture and stenosis of cervix uteri N88.2 Assessments Encounter Date Diagnosis (ICD Code) Assessment Notes Treatment Notes Treatment Clinical Notes Section Notes 12/10/2023 Encounter for removal of intrauterine contraceptive device (ICD-10 - Z30.432) 12/10/2023 Stricture and stenosis of cervix uteri (ICD-10 - N88.2) Plan Of Treatment Next Appt Details Follow Up: prn, Reason: Progress Notes * GURPREET KIMDOB: [birth year] (49 yo F)Acc No.[id number]:12/10/2023 PROGRESS NOTES Patient: Briana MaryBETSY GURPREET Provider: Mohinder RALPH MD :1975 A ge:48 Y S ex:Female Date:12/10/2023 Address:[place] [address], [place], [place] Pcp:SHAYNA SOTELO N.P. Subjective: * Chief Complaints: [...] Other psychoactive substance abuse, in remission. * Wax Room Supervisor History: G ravida/ Para 2 /2. S exual activity n ot currently sexually active. L ast Pap Smear: NIL, POS HRHPV, 2019. A bnormal Pap Smear: H istory of [...] (), 05/07/2002, Boo, 7lb 11oz, no complications. * Medications: T aking traZODone HCl 50 MG Tablet 1 tablet at bedtime as needed Orally Once a day , Taking Brixadi 96 MG/0.27ML Solution Prefilled Syringe 0.27 mL Subcutaneous , Taking Topiramate 50 MG Tablet Oral , Taking hydrOXYzine HCl 25 MG Tablet Oral , Taking buPROPion HCl ER (XL) 300 MG Tablet Extended Release 24 Hour Oral , Taking Ibuprofen 600 MG Tablet TAKE 1 TABLET BY MOUTH EVERY 8 HOURS NEEDED FOR MODERATE PAIN Oral Objective: * Vitals: Assessment: * Assessment: 1. [...] Information: * Visit Code: * Procedure Codes: 98756 REMOVE INTRAUTERINE DEVICE. * Electronic signature of MENDOZA RALPH MD on 02/06/2025 at 09:14 AM EST Sign off status: Pending * Provider: Mohinder RALPH MD Date: Generated for Luis Alberto ramos/Toma/Christositting on: 04/09/2024 09:14 AM EST
--- OUTSIDE RECORDS SUMMARY | 2024-08-04 05:30 | XMS_ITS ---
Author Organization [facility] Address [address] [address] Care Team Providers Care Employment Attorney Name Role Phone SHAYNA SOTELO N.P. Primary Care Provider MENDOZA Jarrett Unavailable [phone] REASON FOR VISIT Annual SEAT BUILDER Physical Encounters Encounter Location Date Provider Diagnosis [facility] [address] [address] 08/04/2024 MENDOZA RALPH Encounter for gynecological examination (general) (routine) without abnormal findings Z01.419 ; Encounter for screening mammogram for malignant neoplasm of breast Z12.31 and Encounter for screening for infections with a predominantly sexual mode of transmission Z11.3 Assessments Encounter Date Diagnosis (ICD Code) Assessment Notes Treatment Notes Treatment Clinical Notes Section Notes 08/04/2024 Encounter for gynecological examination (general) (routine) without [...] to keep colon screening up to date. 08/04/2024 Encounter for screening mammogram for malignant neoplasm of breast (ICD-10 - Z12.31) 08/04/2024 Encounter for screening for infections with a predominantly sexual mode of transmission (ICD-10 - Z11.3) Plan Of Treatment Treatment Notes Assessment Notes Encounter for gynecological examination (general) (routine) without abnormal findings During the visit, the following areas of [...] to keep colon screening up to date. Pending Test Test Name Order Date MM Digital Screening Mammogram 3D 2024 Next Appt Details Follow Up: 1 Year, Reason: Y early De Icer Kit Assembler Exam Progress Notes * GURPREET KIMDOB: [birth year] (49 yo F)Acc No.[id number]:08/04/2024 PROGRESS NOTES Patient: GURPREET DEL ROSARIO Provider: Mohinder RALPH MD :1975 A ge:48 Y S ex:Female Date:08/04/2024 Address:[place] [address], [place] , [id number] Pcp:SHAYNA SOTELO N.P. Subjective: * Chief Complaints: * 1 . Annual SEAT BUILDER Physical. 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 She has been in state of fair health since her last exam - she is *18 months sober. She has the following concerns: She has not received the Covid-19 vaccine. Relationship status: *single. She is not currently sexually active for the last year. Sexual partner(s): male. She does wish to have STI testing. Menses: *absent Contraception: IUD - Mirena - inserted about 11 years ago. Attempted IUD removal last year, but unable to identify a cervical os. Had surgical attempt at IUD removal with ultrasound guidance on 03/08/24 - unsuccessful. She does* report vaginal dryness - she doesn't treat. She does* have hot flashes/night sweats - tolerable. The patient has not had an abnormal pap smear within the last 5 years, but has had abnormal paps most of the time. She reports a LEEP procedure in her early 20's. Her most recent pap smear was 08/03/23 - NIL, +HR HPV, Neg 16/18/45. She is due for cotesting today. She has not been diagnosed with breast cancer. She does *not have a family history of breast cancer. She has *never had a mammogram. She does *not have a family history of colon cancer. She a has *not had a colonoscopy nor any other colon cancer screening. The patient does *not exercise. * ROS: A nnual De Icer Kit Assembler Exam ROS: Bowel habit changes d enies. [...] no acute distress, well developed, well nourished, locator present in room. HEAD: n ormocephalic, atraumatic. [...] * Follow Up: 1 Year (Reason: Yearly De Icer Kit Assembler Exam) * Images: Billing Information: * Visit Code: 24592 Preventive Care Est Pt. Age 40-64. 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 She has been in state of fair health since her last exam - she is *18 months sober. She has the following concerns: She has not received the Covid-19 vaccine. Relationship status: *single. She is not currently sexually active for the last year. Sexual partner(s): male. She does wish to have STI testing. Menses: *absent Contraception: IUD - Mirena - inserted about 11 years ago. Attempted IUD removal last year, but unable to identify a cervical os. Had surgical attempt at IUD removal with ultrasound guidance on 03/08/24 - unsuccessful. She does* report vaginal dryness - she doesn't treat. She does* have hot flashes/night sweats - tolerable. The patient has not had an abnormal pap smear within the last 5 years, but has had abnormal paps most of the time. She reports a LEEP procedure in her early 20's. Her most recent pap smear was 08/03/23 - NIL, +HR HPV, Neg 16/18/45. She is due for cotesting today. She has not been diagnosed with breast cancer. She does *not have a family history of breast cancer. She has *never had a mammogram. She does *not have a family history of colon cancer. She a has *not had a colonoscopy nor any other colon cancer screening. The patient does *not exercise. Examination Category Sub-Category Detail Notes Category Not es General Examination GENERAL APPEARANCE: in no ac [place] distress, well developed, well nourished, locator present in room HEAD: normocephalic, atrau matic [...]
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
--- OUTSIDE RECORDS SUMMARY | 2024-09-27 03:20 | XMS_ITS ---
Author Organization [facility] Address [address] [address] Care Team Providers [facility] Pricing Consultant Name Role Phone SHAYNA SOTELO N.P. 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 Physical Encounters Encounter Location Date Provider Diagnosis [facility] [address] [address] 09/27/2024 MENDOZA RALPH Encounter for gynecological examination (general) (routine) without abnormal findings Z01.419 ; Encounter for screening mammogram for malignant neoplasm of breast Z12.31 and Encounter for screening for infections with a predominantly sexual mode of transmission Z11.3 Assessments Encounter Date Diagnosis (ICD Code) Assessment Notes Treatment Notes Treatment Clinical Notes Section Notes 09/27/2024 Encounter for gynecological examination (general) (routine) without [...] to keep colon screening up to date. 09/27/2024 Encounter for screening mammogram for malignant neoplasm of breast (ICD-10 - Z12.31) 09/27/2024 Encounter for screening for infections with a [...] Follow Up: 1 Year, Reason: Y early Support Technician Exam Progress Notes * GURPREET KIMDOB: 7 (49 yo F)Acc No.[id number]:09/27/2024 PROGRESS NOTES Patient: GURPREET DEL ROSARIO Provider: Mohinder RALPH MD :1975 A ge:48 Y S ex:Female Date:09/27/2024 Address:[place] [address], [place] , [id number] Pcp:SHAYNA SOTELO N.P. Subjective: * Chief Complaints: * 1 . Annual FUNERAL HOME LOCATION MANAGER Physical. 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 She has been in state of [...] does *not exercise. * ROS: A nnual Support Technician Exam ROS: Bowel habit changes d enies. [...] no acute distress, well developed, well nourished, barrel coater present in room. HEAD: n ormocephalic, atraumatic. [...] * Follow Up: 1 Year (Reason: Yearly Support Technician Exam) * Images: Billing Information: * Visit Code: 10050 Preventive Care Est Pt. Age 40-64. 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 She has been in state of [...] General Examination GENERAL APPEARANCE: in no ac eagle distress, well developed, well nourished, barrel coater present in room HEAD: normocephalic, atrau matic [...]
--- NOTE | 2025-02-06 08:49 | AM.OFFVISNUR ---
Intake Visit Reasons: Injection Allergies No Known Allergies (No Known Allergies*) Allergy (Verified 01/02/25 09:48) Nursing Note Jerilyn presents today for Sublocade 300 mg injection; she is alert, oriented, cooperative and presents with an appropriate affect. Jerilyn reports mild symptoms the past few days however less so than the past couple of injections, she feels that she is reaching stable coverage. Work is going okay , looking forward to seeing her sons over the holidays who will be traveling from [place] and [place]. Follow up in 4 weeks for the next injection. Office Meds Sublocade 300 mg/1.5 mL solution,extended release subcutaneous syringe Performing Provider: Rose Qiu MD Performing Location: [facility] Administered by: Gifty Castro RN on 02/06/25 09:18 Dose Route Admin Location Dispensed Lot Number Expiration Date [facility] [employer] 300 mg subcut LUQ 1.5 mL [id number] 08/15/25 [address]-6 [employer] Total Dispensed Waste 1.5 mL 0 % Comments: Pt is present for Sublocade 300 mg injection. Pt denies any concern with previous injection and tolerated injection well. Educated on signs and symptoms of infection and encouraged to call [facility] with any related questions or concerns, pt verbalized understanding. Follow-up scheduled in 4 weeks for next injection. Assessment & Plan Assessment & Plan Orders: Orders AMB Buprenorphine Injection - Patient Supplied Today F11.21 - Opioid dependence, in remission Coding
--- OUTSIDE RECORDS SUMMARY | 2025-02-06 09:14 | XMS_ITS | Patient Health Record ---
Author Organization [facility] Address [address] [place] [address] Care Team Providers Care Chief Technical Officer Name Role Phone NO, PCP Primary Care Provider AustinSUSHANTSeraMurphy barriga Unavailable [phone] Reason For Referral No Information Plan Of Treatment No Information Insurance Providers Payer Name Payer Address Payer Phone Subscriber Number Group Number Insured Name Patient Relationship to Insured Coverage Start Date Coverage End Date [place] [address] [place] [address] [id number] Jerilyn Norton Self - patient is the insured 4 [facility] [address] [place] [address] [id number] Jerilyn Norton Self - patient is the insured 4
--- OUTSIDE RECORDS SUMMARY | 2025-02-06 09:15 | XMS_ITS | Patient Health Record ---
Author Organization [facility] Address [address] [place] [address] Care Team Providers Care Rental Car Deliverer Name Role Phone SHAYNA SOTELO N.P. Primary Care Provider Unavaila MENDOZA Grider Unavailable [phone] Allergies No Known Allergies Reason For Referral [...] test positive, high risk on vaginal specimen (178791240271933) Cervical high risk human papillomavirus (HPV) DNA test positive (R87.810) Active confirmed Problem Stenosis of cervix (83297825) Stricture and stenosis of cervix uteri (N88.2) Active confirmed Problem Essential hypertension (15121673) Essential (primary) hypertension (I10) Active confirmed Problem Major depression, single episode (38293806) Major depressive disorder, single episode, unspecified (F32.9) Active confirmed Problem Generalized anxiety disorder (69543403) Generalized anxiety disorder (F41.1) Active confirmed Problem History of novel psychoactive substance misuse (situation) (449072495) Other psychoactive substance abuse, 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
--- OUTSIDE RECORDS SUMMARY | 2025-02-06 09:15 | XMS_ITS | Data Portability ---
Author Organization [facility] Patient Home Address [address] [place] [address] Assessment Encounter Date Assessment Date Assessment LastModified by Organization Details LastModified Time 06/08/2019 06/08/2019 12 min tot time Not available 06/08/2019 14:28:35 Plan of Treatment Reminders Order Date Submit Date Provider Last Modified By Organization Details Last Modified Time Details Appointments None recorded. Lab None recorded. Referral gynecologis t referral 2021 tracy Domingo MD, [address] [place], [address], 08:22:41 Procedures None recorded. Surgeries None recorded. Imaging None recorded. Medication Orders valacyclovi r 1 gram tablet 2021 [facility] [place]16641, [address], [place], [id number], 10:45:53 metronidazo le 500 mg tablet [facility], [address], [place], [id number], 3 11:16:15 bupropion HCl XL 150 mg 24 hr tablet, extended release 2021 [facility] #58327, [address], [place], [id number], 2 10:45:52 acyclovir 400 mg tablet 2021 022 [facility] #99767, [address], [place], [id number], 11:40:49 Valtrex 1 gram tablet 2020 021 [facility] #44120, [address] [place] [address], [id number], 08:11:08 erythromyci n 5 mg/gram (0.5 %) eye ointment 2020 021 [facility] #63273, [address] [place] [address], [id number], 08:10:35 betamethaso ne dipropionat e 0.05 % topical cream 2020 021 [facility] #60502, [address] [place] [address], [id number], 11:18:57 trazodone 50 mg tablet 2020 021 [facility] #30406, [address], [place], [id number], 11:20:30 bupropion HCl SR 150 mg tablet,12 hr sustained-r elease 2020 021 [facility] #94347, [address] [place] [address], [id number], 2 11:18:53 hydroxyzine HCl 50 mg tablet 2020 021 [facility] #84405, [address], [place], [id number], 2 11:19:06 bupropion HCl SR 150 mg tablet,12 hr sustained-r elease 2019 020 [facility]3383, [address], [place], [address], 2 11:18:53 Patient TargetsNo targets recorded. Patient Instructions Encounter Date Encounter Id Patient Instructions Last Modified By Organization Details Last Modified Time 06/08/2019 [id number] learning about mood disorders Not available 06/08/2019 15:43:47 Reason for Referral Hemmer Chainstitch Referral for IU D check hx of [...] Name and Address Organization Details Recorded Time [facility] [id number] Completed 201804/27/2019 Brian Vidal DO [address] [place] [address], [address] 0 10:06:45 Hyperten sive disorder 64002957 Active 2018 Tereza farley [facility] 9 08:34:56 Hemorrho ids 35092953 Active 2018 Tereza farley [facility] 9 08:35:06 Eczema 71096097 Active 2018 Tereza farley [facility] 9 08:35:16 Anxiety 98517492 Active 2018 Tereza farley [facility] 9 08:35:22 Tension- type headache 702945155 Active 2018 Tereza farley [facility] 9 08:35:34 Depressi ve disorder 32691780 Active 2019 Brian Vidal DO [address] [place], [address], [facility] 0 10:07:08 Herpes labialis 1413803 Active 2021 KAYLA MCKEE [address] [place], [address], [facility] 2 11:30:07 Bacteria l vaginosi s 261562559 Active 2021 KAYLA MCKEE [address] [place], [address], [facility] 2 10:42:38 Pain in pelvis 06621559 Active 2021 KAYLA MCKEE [address] [place], [address], [facility] 2 10:48:23 Problem Notes None recorded. Medical Equipment None Reported. Allergies Allergen ID Allergen Name Allergen Category Reaction Reaction Severity Criticality Documentation Date Start Date Code Code System Note Provider Name and Address Organization Details Recorded Time 2649 citalopra m medicatio n Not available Not available Not available 02/19/2018 2556 RxNorm Tereza Sawyer [facility] 9 08:34:36 Medications Name Sig Start [...] mass index (BMI) Body weight Oxygen saturation Heart rate Systolic And Diastolic Provider Name and Address Organization Details Last Updated DateTime 2 167.64 cm 21.6 kg/m2 07857.7 4 g 100 % 66 /min 110/70 mm[Hg] Leah Escobar [facility] 2 11:21:47 Social History Question Answer Notes LastModified by Organizat ion Details LastModified Time Tobacco Smoking Status Current Every Day Smoker couple cigerettes per day Leah Savannahstefan farley, [facility] 11/11/2021 11:20:52 What Was The Date Of [...] ICD10 Code Diagnosis IMO Codes Diagnosis Note [id number] Brian Vidal [facility] [address] [place] [address] 04/27/2019 09:47:45 04/27/2019 10:19:28 Depressive disorder 22888716 F32.9 will try wellbutrin Hypertensive disorder 38 228795 I10 bp is good she had lost 40 lbs on her own due to depression Eczema 92687476 L30.9 nummular on belly small patch will use clobetasol [id number] Brian Vidal [facility] [address] [address] 05/17/2019 13:32:48 05/17/2019 13:45:47 Depressive disorder 26745724 F32.9 will try wellbutrin [id number] Brian Vidal [facility] [address] [address] 06/08/2019 08:18:30 06/08/2019 14:31:22 Depressive disorder 15880730 F32.9 wellbutrin has helped and she is clearly improved we will cont the 150mg bid dosing and follow over the next 2 months she knows to call if there are any issues before then told her expect the med to cont to improve her overall status the longer she is on it. will talk again in july needs back to work note [id number] Brian Vidal [facility] [address] [place] [address] 06/26/2020 13:41:03 06/26/2020 16:40:06 Anxiety 02630073 F41.9 will refill that medication and medication that was used at rehab that worked well Depressive disorder 3548 9007 F32.9 trazodone works well for her Hordeolum externum of upper eyelid of right eye 7038600659 00668 H00.011 stye in her right eye will give ointment Eczema 86621335 L30.9 needs refill Herpes labialis 8878664 B00.1 cold sores, will give refill [id number] Brian Vidal [facility] [address] [place] [address] 11/11/2021 11:13:38 11/11/2021 11:43:46 Depressive disorder 78061003 F32.9 will fu with me with a message regarding what they do for her at the clinic3 mo fu was scheduled as well Herpes labialis 6324819 B00.1 cold sores, will give refill [id number] Brian Vidal [facility] [address],[place] [address] 01/17/2022 10:03:40 01/17/2022 11:07:37 Anxiety 27217373 F41.1 will add to the 300 mg and 150 mg together Depressive disorder 4651 0827 F32.9 will f/u with her therapist as well with her mood Bacterial vaginosis 6597 86111 N76.0 will treat with metronidaz shayla be seeing her gynecologi st Herpes labialis 7841303 B00.1 cold sores, will give refill Pain in pelvis 98772923 R10.2 will set up with gynecologi st IUD check 024769449 Z30. 431 will set up with STAT referral Health Concerns Section Related Observation LastModified by Organization Detai ls LastModified Time None Recorded Concern Status LastModified by Organization Details LastModified Time None Recorded Advance Directives Directive None Recorded Payers Insurance Date Sequence Insurance Name Policy Number Policy Grace Covered Member ID Grace Member ID Guarantor Name 06/22/2023 1 [place] [facility] Jerilyn Norton [id number] Jerilyn Chavezle 08/03/2019 SLIDING FEE SCHEDULE - DISCOUNT Jerilyn Chavezle 06/22/2023 1 [place] PRIOR TO 2022 - [facility] (MEDICAID) Jerilyn Norton [id number] Jerilyn Chavezle 06/22/2023 1 [place] [facility] Jerilyn Norton [id number] Jerilyn Chavezle 04/22/2019 1 *SELF PAY* Last eli Cierra 06/22/2023 1 [facility] PLAN [id number] Jerilyn Cierra [id number] Jerilyn Cierra Notes Date Note Type Note [...] taking daily once Brian Vidal DO [address] [place], [address], [facility] 05/17/2019 13:45:09 06/08/2019 text/html ROS [...] well without issue Brian Vidal DO [address] [place], [address], [facility] 06/08/2019 15:43:59 06/26/2020 text/html ROS as noted in the HPI medication fu anxiety: the patient came off the bupropion while at the program the patient reports that the medication didn't really help the patient completed a 14 day program at [facility] in [place] for substance abuse disorders the patient has been off cocaine for 14 days which is excellent has a fu with psych tomorrow which she is excited for she has been taking care of herself and feels good will fu PRN KAYLA MCKEE [address] [place], [address], [facility] 06/26/2020 14:36:14 11/11/2021 text/html ROS as noted in the HPI c/o severe major depression the patient reports that she has a h/x of drug and alcohol abusethe patient is also struggling with personal issues with her finances and her son the patient is currently on suboxone, sees the [facility] for this as curt does note she relapsed recently when she was out with the friends 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 but states she does not find it stimulating and would like to find something else but she would like to go to rehab for a longer detox program as well which she reports has been helpful in the past the patient reports that her depression is significantthe patient is seeing [facility] [place] > she is seeing someone at [facility] for therapy, will be discussing it today with them told her she can call if the can recommend medication but can't prescribe it will fu in three months after she sees them KAYLA MCKEE [address] [place], [address], [facility] 11/11/2021 11:41:29 01/17/2022 text/html ROS [...] cancerwill set up with stat referral to [facility] possibly BV given discharge; will start on abx KAYLA MCKEE [address] [place], [address], [facility] 01/17/2022 10:55:56 OBGyn Episode No OBEpisode recorded.
== END 2025-02-06 09:31 | disposition home or self-care (01) ==
LOC: HO.HCC 08:48
PROVIDERS: PCP Nurse Practitioner Family
DX: F11.21 Opioid dependence, in remission (principal)

== ENCOUNTER → 2025-02-06 08:48 | Outpatient (BNVA) | payer OTHER, SELFPAY | PROVIDERS: PCP Nurse Practitioner Family | DX: F11.21 Opioid dependence, in remission (principal) | CPT/HCPCS: 96372; Q9992 ==